=== PATIENT | male | born 1950 | race Caucasian/White ===

== ENCOUNTER 2025-01-26 07:20 | Outpatient (CLI) | payer MEDICARE, SELFPAY ==
--- NOTE | ~2025-01-26 | PE_ITS ---
EXAMINATION: PET_PETPSMAST_PT DATE: 01/26/2025 10:36 INDICATION: Prostate cancer TECHNIQUE: 4.66 mCi of Illucix Ga-68([id number]) was administered i.v. Low dose computed tomog mariza (CT) images were acquired from the base of the brain to the base of the brain to the proximal t highs for attenuation correction and anatomic localization. Positron emission tomography (PET) images were acquired in the same distribution beginning 84 minutes after injection. Images including fused PET/CT images were reconstructed in axial, coronal, and sagittal planes. Automated exposure control t [employer]Sparkn[employer] was employed. The dose-length product was 966.21mGy-cm. COMPARISON: None FINDINGS: Head/neck: Typical pattern of symmetric physiologic increased activity in the lacrimal, parotid and submandibula r glands as well as along the mucosa of the nasal and oral cavities, pharynx and hypopharynx. No path ologically enlarged cervical lymphadenopathy or suspicious foci of increased uptake in the visualized head or neck. Chest: Mild discoid atelectasis in the bilateral lower lobes. No suspicious pulmonary nodules, pneumonia, pu lmonary edema or pleural effusion. Mild cardiomegaly. Atherosclerotic coronary artery calcifications and change of prior median sternotomy and coronary artery bypass grafting. Thoracic aorta is normal i n caliber. No pathologically enlarged or PSMA avid thoracic lymphadenopathy. Abdomen/pelvis/proximal thighs: Physiologic renal accumulation and excretion of activity in the kidneys, bladder and along portions o f ureters. Mild prostatomegaly measuring 4.6 x 3.1 cm. There is an approximately 1 cm focus of intens e increase PSMA activity with maximal SUV of 37.3 at the left posterior inferior aspect of the prosta te consistent with reported history of primary prostate cancer. There is a second similar sized focus of mild uptake with maximal SUV of 4.9 at the right side of the prostate. Normal degree and slightly heterogenous pattern of increased uptake throughout the liver and spleen without radiologic correlat e or dominant PSMA avid lesion. The gallbladder, pancreas and bilateral adrenal glands are normal. Mo derate uptake scattered throughout the bowels with typical duodenal and proximal jejunal predominance and without radiologic correlate, also likely physiologic. Ventral hernia mesh repair. Postoperative change of left inguinal hernia repair with low-attenuation plaque at the entrance to the inguinal ca nal and overlying 4.7 x 2.9 x 4.1 cm subcutaneous fluid collection without significant surrounding fr om fissuring and favor evolving hematoma/seroma over abscess. No other abnormal foci of increased upt lauri or pathologically enlarged lymphadenopathy in the abdomen, pelvis or proximal thighs. Musculoskeletal: There is potentially developmental anterior and posterior fusion at C2-C3. A cemented C3-C4 anterior spinal fusion with interbody bone graft cages and anterior plate-screw fixation. There are bridging o steophytes throughout the spine with the exception of L3-L4 and L4-L5 where there is nearly bridging consistent with diffuse idiopathic skeletal hyperostosis (DISH). Likely related ankylosis across the bilateral sacroiliac joints. No suspicious lytic, blastic or abnormally PSMA avid bone lesions. IMPRESSION: 1. Small region of marked increased uptake at the left side of the prostate and additional small focu s of mild uptake at the right-sided the prostate consistent with primary prostate cancer. No evident metastatic disease. 2. Changes consistent with recent left inguinal hernia repair with overlying 4.7 x 2.9 x 4.1 cm subcu taneous fluid collection most likely an evolving hematoma/seroma with differential including abscess in the appropriate clinical setting. Reviewed, dictated and finalized at location A. IMPRESSION: 1. Small region of marked increased uptake at the left side of the prostate and additional small focus of mild uptake at the right-sided the prostate consiste nt with primary prostate cancer. No evident metastatic disease. 2. Changes consistent with recent left inguinal hernia repair with overlying 4. 7 x 2.9 x 4.1 cm subcutaneous fluid collection most likely an evolving hematoma /seroma with differential including abscess in the appropriate clinical setting .
--- OUTSIDE RECORDS SUMMARY | 2025-01-26 07:25 | XMS_ITS | Encounter Summary ---
Author Organization [facility] Address Critical access hospital[address] [place] [address] Care Team Providers Care Face Worker Name Role Phone Preeti Self MD Primary Care Provider [phone] Ender Griffith MD Unavailable [phone] Luciana Bran MD Primary Care Provider [phone] Pan Miller MD Unavailable Encounter Details Date Type Department Care Team (Late st Contact Info) Description 11/15/2020 MyChart Message Enc [facility] Wound Clinic [facility] [address] [place] [address] [place] [address] [place] [address] RE: Other Social History Tobacco Use Types Packs/Day Years Used Date Smoking Tobacco: Never Smokeless Tobacco: Never Alcohol Use Standard Drinks/Week Comments Yes 3.3 (1 standard drink = 0.6 oz p ure alcohol) wine occ AUDIT-C Answer Date Recorded Frequency of Alcohol Consumption 2-3 times a wee k 10/28/2018 Average Number of Drinks Not on file 019 Frequency of Binge Drinking Not on file 12/2018 PHQ-2 Answer Date Recorded PHQ-2 Score - If the patient scores above 3, please move on to questions 3-9 0 11/09/2020 Sex and Gender Information Value Date Recorded Sex Assigned at Male 10/20/2018 1:11 PM CDT Legal Sex Male 12:04 AM CDT Gender Identity Male 10/20/2018 1:11 PM CDT Sexual Orientation Straight 10/20/2018 1: 11 PM CDT 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 No / Unsure 11/18/2020 10:09 AM CDT documented as of this encounter Plan of Treatment Upcoming Encounters Date Type Department Care Team (Late st Contact Info) Description 01/28/2025 2:00 PM CDT Office Visit [facility] General Surgery [address], [facility] [address] [place] [phone] [place] [address] [place] [address] 10/11/2025 11:20 AM CDT Office Visit [facility] Family & Internal Medicine [address] [address] Luciana Bran MD [address] [place] [address] [phone] 01/28/2026 10:15 AM CDT Office Visit [facility] [phone] Ender Griffith MD [address] [phone] documented as of this encounter Visit Diagnoses Not on filedocumented in this encounter Care Teams Face Worker Relationship Specialty Start Date End Date Preeti Self MD PCP - General INTERNAL MEDICINE 11/23/15 03/07/22 [place] [address] [facility]. [address] [place] [address] PCP - General FAMILY PRACTICE 03/08/22 Ender Griffith MD Three [facility]. [facility] [address] [place] [address] [place] Photography Teacher CARDIOVASCULAR DISEASE 01/22/17 Pan Miller MD 1 [place] [address] Consulting Physician RADIATION ONCOLOGY 01/15/25 documented as of this encounter
--- OUTSIDE RECORDS SUMMARY | 2025-01-26 07:25 | XMS_ITS | Encounter Summary ---
Author Organization [facility] Address [facility] [place] [address] Care Team Providers Care Grain Sacker Name Role Phone Preeti Self MD Primary Care Provider [phone] Ender Griffith MD Unavailable [phone] Luciana Bran MD Primary Care Provider [phone] Pan Miller MD Unavailable Encounter Details Date Type Department Care Team (Late st Contact Info) Description 09/23/2020 MyChart Message Enc [facility] Medical [facility] Wound Clinic [facility] [address] [place] [address] [place] [address] [place] [address] Question Social History Tobacco Use Types Packs/Day Years Used Date Smoking Tobacco: Never Smokeless Tobacco: Never Alcohol Use Standard Drinks/Week Comments Not Currently 6.7 (1 standard drink = 0.6 oz p ure alcohol) wine occ AUDIT-C Answer Date Recorded Frequency of Alcohol Consumption 2-3 times a wee k 10/28/2018 Average Number of Drinks Not on file 019 Frequency of Binge Drinking Not on file 12/2018 PHQ-2 Answer Date Recorded PHQ-2 Score - If the patient scores above 3, please move on to questions 3-9 0 05/11/2020 Sex and Gender Information Value Date Recorded Sex Assigned at Male 10/20/2018 1:11 PM CDT Legal Sex Male 12:04 AM CDT Gender Identity Male 10/20/2018 1:11 PM CDT Sexual Orientation Straight 10/20/2018 1: 11 PM CDT 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 No / Unsure 09/26/2020 10:28 PM CDT documented as of this encounter Progress Notes * Kate Gandhi MA - 09/23/2020 4:[address] Álvarez, she states waiting 2 weeks after surgery. Spoke with the patient. He stated that a different physician told him a week before. Patient will get vaccine at his digression. documented in this encounter Plan of Treatment Upcoming Encounters Date Type Department Care Team (Late st Contact Info) Description 01/28/2025 2:00 PM CDT Office Visit [facility] General Surgery - [place] [address] [facility], [address] [place] [address] [place] [address] [address] 10/11/2025 11:20 AM CDT Office Visit [facility] Family & Internal Medicine - [place] [address] [place] [address] [place] [address] [facility] [address] 01/28/2026 10:15 AM CDT [facility] [address] [place] [phone] Ender Griffith MD [facility] [address] [place] [address] documented as of this encounter Visit Diagnoses Not on filedocumented in this encounter Additional Health Concerns Infection Onset Date Last Indicated Resolved Time COVID-19 Rule Out 09/30/2020 09/30/2020 10/01/2020 1:31 PM CDT COVID-19 Rule Out 10/28/2020 10/28/2020 10/30/2020 5:40 PM CDT documented as of this encounter Care Teams Grain Sacker Relationship Specialty Start Date End Date Preeti Self MD PCP - General INTERNAL MEDICINE 11/23/15 03/07/22 [place] [address] [facility]. [address] [place] [phone] PCP - General FAMILY PRACTICE 03/08/22 Ender Griffith MD Three [facility]. [address] [address] [place] Puzzle Assembler CARDIOVASCULAR DISEASE 01/22/17 Pan Miller MD 1 [place] [address] Consulting Physician RADIATION ONCOLOGY 01/15/25 documented as of this encounter
--- OUTSIDE RECORDS SUMMARY | 2025-01-26 07:25 | XMS_ITS | Encounter Summary ---
Author Organization [facility] Address [address] [place] [address] Care Team Providers Care Health And Fitness Instructor Name Role Phone Preeti Self MD Primary Care Provider [phone] Ender Griffith MD Unavailable [phone] Luciana Bran MD Primary Care Provider [phone] Pan Miller MD Unavailable Encounter Details Date Type Department Care Team (Late st Contact Info) Description 10/21/2020 Prep for Procedure [facility] Day Services [address] [place] [address] Dipak Rios MD [address] [facility] [address] [place] [place] [address] Social History Tobacco Use Types Packs/Day Years [...] 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 No / Unsure 10/03/2020 8:57 AM CDT documented as of this encounter Plan of Treatment Upcoming Encounters Date Type Department Care Team (Late st Contact Info) Description 01/28/2025 2:00 PM CDT Office Visit [facility] General Surgery - [address], [address] [place] [address] [place]ashaad [place] [address] [place] [address] [address] [place] [address] 10/11/2025 11:20 AM CDT Office Visit [facility] Family & Internal Medicine [facility] [address] [place] [address] Luciana Bran MD [address] [place] [address] [phone] 01/28/2026 10:15 AM CDT Office Visit [facility] [phone] Ender Griffith MD [address] [address] documented as of this encounter Results * PRE-SURGICAL/PRE-PROCEDURE CORONAVIRUS (COVID 19) (10/28/2020 7:41 AM CDT) CORONAVIRUS SARS COV 2 PCR (RESP) NOT DETECTED NOT DETECTED 10/30/2020 5:40 PM CDT [facility] Comment: A Not Detected (negative) test result for this test means that SARS-CoV-2 RNA was not present in the specimen above the limit of detection. A negative result does not rule out the possibility of COVID-19 and should not be used as the sole basis for treatment or patient management decisions. If COVID-19 is still suspected, based on exposure history together with other clinical findings, re-testing should be considered in consultation with public health authorities. Laboratory test results should always be considered in the context of clinical observations and epidemiological data in making a final diagnosis and patient management decisions. This patient specimen was tested using an FDA EUA pooling method. Patient specimens with low viral loads may not be detected in sample pools due to the decreased sensitivity of pooled testing. Please review the Fact Sheets and FDA authorized labeling available for health care providers and patients using the following websites: https://www.[facility].BaroFold/home/Covid-19/HCP/NAAT/fact-sheet2 https://www.[facility] [employer].BaroFold/home/Covid-19/Patients/NAAT/ fact-sheet2 This test has been authorized by the FDA under an Emergency Use Authorization (EUA) for use by authorized laboratories. Due to the current public health emergency, [facility] is receiving a high volume of samples from a wide variety of swabs and media for COVID-19 testing. In order to serve patients during this public health crisis, samples from appropriate clinical sources are being tested. Negative test results derived from specimens received in non-commercially manufactured viral collection and transport media, or in media and sample collection kits not yet authorized by FDA for COVID-19 testing should be cautiously evaluated and the patient potentially subjected to extra precautions such as additional clinical monitoring, including collection of an additional specimen. Methodology: Nucleic Acid Amplification Test (NAAT) includes RT-PCR or TMA Additional information about COVID-19 can be found at the [facility] website: www.[employer].BaroFold/Covid19. Test performed at [facility] [address] [place] [address] Director: TIANA PANCHAL DO,MPH FIRST TEST NO 10/28/2020 7:37 AM CDT [facility] EMPLOYED IN [facility] NO 10/28/2020 7:37 AM CDT [facility] SYMPTOMATIC DEFINED BY CDC NO 10/28/2020 7:37 AM CDT [facility] DATE OF SYMPTOM ONSET UNKNOWN 10/28/2020 8:07 AM CDT [facility] HOSPITALIZATION STATUS NO 10/28/2020 7:37 AM CDT [facility] PATIENT IN ICU NO 10/28/2020 7:37 AM CDT [facility] RESIDENT OF [facility] NO 10/28/2020 7:37 AM CDT [facility] NO 10/28/2020 8:07 AM CDT [facility] PATIENT'S RACE WHITE OR 10/28/2020 7:37 AM CDT [facility] ETHNICITY NONHISPANIC 10/28/2020 7:37 AM CDT [facility] SOURCE (QST) NASOPHARYNGEAL SWAB 10/28/2020 7:37 AM CDT [facility] NASOPHARYNGEAL SWAB / Unknown 10/28/2020 7:41 AM CDT us Dipak Rios MD MICROBIOLOGY - GENERAL ORDERAB LES Final Result Performing Organization Address City/State/[facility] Co de Phone Number [facility] [address] [place] [address], [place] [phone] [facility] [id number] [place] [address], documented in this encounter Visit Diagnoses Diagnosis Preop testing- Primary Preoperative examination, unspecified documented in this encounter Additional Health Concerns Infection Onset Date Last Indicated Resolved Time COVID-19 Rule Out 10/28/2020 10/28/2020 10/30/2020 5:40 PM CDT documented as of this encounter Care Teams Health And Fitness Instructor Relationship Specialty Start Date End Date Preeti Self MD PCP - General INTERNAL MEDICINE 11/23/15 03/07/22 [place] [address] [facility]. [address] [place] [address] PCP - General FAMILY PRACTICE 03/08/22 Ender Griffith MD Three [facility]. [facility] [address] [place] [address] [place] Commercial Sales Director CARDIOVASCULAR DISEASE 01/22/17 Pan Miller MD [address] [place] [address] Consulting Physician RADIATION ONCOLOGY 01/15/25 documented as of this encounter
--- OUTSIDE RECORDS SUMMARY | 2025-01-26 07:25 | XMS_ITS | Encounter Summary ---
Author Organization [facility] Address [facility] [place] [address] Care Team Providers Care Complaint Evaluation Supervisor Name Role Phone Preeti Self MD Primary Care Provider [phone] Ender Griffith MD Unavailable [phone] Luciana Bran MD Primary Care Provider [phone] Pan Miller MD Unavailable Encounter Details Date Type Department Care Team (Late st Contact Info) Description 12/18/2020 [facility]at Message Enc [facility] Family & Internal Medicine [facility] [address] [place] [address] Nikki Rockwell APNP [address] [address] RE: Other Social History Tobacco Use [...] 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 No / Unsure 12/13/2020 8:32 AM CDT documented as of this encounter Plan of Treatment Upcoming Encounters Date Type Department Care Team (Late st Contact Info) Description 01/28/2025 2:00 PM CDT Office Visit [facility] General Surgery [address], [address] [place] [phone] Rashaad Rubio [place] [address] [place] [address] [address] [place] [address] 10/11/2025 11:20 AM CDT Office Visit [facility] Family & Internal Medicine [address] [address] Luciana Bran MD [address] [place] [address] [phone] 01/28/2026 10:15 AM CDT Office Visit [facility] [phone] Ender Griffith MD [address] [address] documented as of this encounter Visit Diagnoses Not on filedocumented in this encounter Care Teams Complaint Evaluation Supervisor Relationship Specialty Start Date End Date Preeti Self MD PCP - General INTERNAL MEDICINE 11/23/15 03/07/22 [place] [address] [facility]. [address] [place] [address] PCP - General FAMILY PRACTICE 03/08/22 Ender Griffith MD Three [facility]. [facility] [address] [place] [address] [place] Cream Maker CARDIOVASCULAR DISEASE 01/22/17 Pan Miller MD 1 [place] [address] Consulting Physician RADIATION ONCOLOGY 01/15/25 documented as of this encounter
--- OUTSIDE RECORDS SUMMARY | 2025-01-26 07:25 | XMS_ITS | Encounter Summary ---
Author Organization 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 No / Unsure 09/26/2020 10:28 PM CDT documented as of this encounter Plan of Treatment Upcoming Encounters Date Type Department Care Team (Late st Contact Info) Description 01/28/2025 2:00 PM CDT Office Visit [facility] General Surgery - [place] [address] [place] [address], [address] [place] [address] Rashaad Rubio MD [address] [place] [address] [address] [place] [address] 10/11/2025 11:20 AM CDT Office Visit [facility] Family & Internal Medicine [facility] [address] [place] [address] Luciana Bran MD [address] [place] [address]. [facility] [address] [place], [place] [phone] 01/28/2026 10:15 AM CDT Office Visit [facility] [phone] Ender Griffith MD [address] [address] documented as of this encounter Results * PRE-SURGICAL/PRE-PROCEDURE CORONAVIRUS (COVID 19) (09/30/2020 8:03 AM CDT) CORONAVIRUS SARS COV 2 PCR (RESP) NOT DETECTED NOT DETECTED 10/01/2020 1:31 PM CDT [facility] Comment: A Not Detected (negative) test result for this test means that SARS- CoV-2 RNA was not present in the specimen [...] a final diagnosis and patient management decisions. Please review the Fact Sheets and FDA authorized labeling available for health care providers and patients using the following websites: https://www.trgt.us.[employer]/home/Covid-19/HCP/QuestIVD/fact- sheet.html https://www.trgt.us.[employer]/home/Covid-19/Patients/ QuestIVD/fact-sheet.html This test has been authorized by the FDA under an Emergency Use Authorization (EUA) for use by authorized laboratories. Due to the current public health emergency, [facility] is receiving a high volume of samples [...] about COVID-19 can be found at the [facility] website: www.Hobobe.[employer]/Covid19. Test performed at [facility] [address] [address] [place] [address] Director: TIANA PANCHAL DO,MPH FIRST TEST UNKNOWN 09/30/2020 7:59 AM CDT [facility] EMPLOYED IN HEALTHCARE NO 09/30/2020 7:59 AM CDT [facility] SYMPTOMATIC DEFINED BY CDC UNKNOWN 09/30/2020 7:59 AM CDT [facility] DATE OF SYMPTOM ONSET UNKNOWN 09/30/2020 8:33 AM CDT [facility] HOSPITALIZATION STATUS NO 09/30/2020 7:59 AM CDT [facility] PATIENT IN ICU NO 09/30/2020 7:59 AM CDT [facility] RESIDENT OF [facility] NO 09/30/2020 7:59 AM CDT [facility] NO 09/30/2020 8:33 AM CDT [facility] PATIENT'S RACE WHITE OR 09/30/2020 7:59 AM CDT [facility] ETHNICITY NONHISPANIC 09/30/2020 7:59 AM CDT [facility] SOURCE (QST) NASOPHARYNGEAL SWAB 09/30/2020 7:59 AM CDT [facility] NASOPHARYNGEAL SWAB / Unknown 09/30/2020 8:03 AM CDT us Dipak Rios MD MICROBIOLOGY - GENERAL ORDERAB LES Final Result Performing Organization Address City/State/[facility] Co de Phone Number [facility] [address] [place] [address], [facility] [address] [address], documented in this encounter Visit Diagnoses Diagnosis Preop testing- Primary Preoperative examination, unspecified documented in this encounter Additional Health Concerns Infection Onset Date Last Indicated Resolved Time COVID-19 Rule Out 09/30/2020 09/30/2020 10/01/2020 1:31 PM CDT COVID-19 Rule Out 10/28/2020 10/28/2020 10/30/2020 5:40 PM CDT documented as of this encounter Care Teams Lab Assistant Relationship Specialty Start Date End Date Preeti Self MD PCP - General INTERNAL MEDICINE 11/23/15 03/07/22 [place] [address] [facility]. [address] [place] [address] PCP - General FAMILY PRACTICE 03/08/22 Ender Griffith MD Three [facility]. [facility] [address] [place] [address] [place] Paper Maker CARDIOVASCULAR DISEASE 01/22/17 Pan Miller MD 1 [place] [address] Consulting Physician RADIATION ONCOLOGY 01/15/25 documented as of this encounter
--- OUTSIDE RECORDS SUMMARY | 2025-01-26 07:25 | XMS_ITS | Encounter Summary ---
Author Organization [facility] Address [address] [place] [address] Care Team Providers Care Control Chemist Name Role Phone Edd De Dios MD Unavailable Unavailable Preeti Self MD Primary Care Provider [phone] Ender Griffith MD Unavailable [phone] Luciana Bran MD Primary Care Provider [phone] Pan Miller MD Unavailable Encounter Details Date Type Department Care Team (Late st Contact Info) Description 04/11/2016 Abstract [facility] AT [address] [address] Sohail Gramajo MA Social History Tobacco Use Types Packs/Day Years Used Date Smoking Tobacco: Never Smokeless Tobacco: Never Alcohol Use Standard Drinks/Week Comments Yes 0 (1 standard drink = 0.6 oz pur e alcohol) wine nightly Sex and Gender Information Value Date Recorded Sex Assigned at Male 10/20/2018 1:11 PM CDT Legal Sex Male 12:04 AM CDT Gender Identity Male 10/20/2018 1:11 PM CDT Sexual Orientation Straight 10/20/2018 1: 11 PM CDT documented as of this encounter Plan of Treatment Upcoming Encounters Date Type Department Care Team (Late st Contact Info) Description 01/28/2025 2:00 PM CDT Office Visit [facility] Medical [facility] General Surgery [address], [address] [place] [address] [place] [address] [facility] [address] [place] [address] 10/11/2025 11:20 AM CDT Office Visit [facility] Medical Group Family & Internal Medicine - [place] [address] [place] [address] [place] [address] [facility]. [address] [place], [place] [phone] 01/28/2026 10:15 AM CDT Office Visit [facility] [address] [place] [address] Ender Griffith MD Three [address] [phone] documented as of this encounter Procedures Procedure Name Priority Date/Time Associated Diagnosis Comments FOLATE (OUTSIDE LAB) Routine 12/08/2015 VITAMIN B-12 Routine 12/08/2015 THYROID STIM HORMONE TSH Routine 12/08/2015 MAGNESIUM Routine 12/08/2015 URIC ACID BLOOD Routine 12/08/2015 documented in this encounter Results * URIC ACID BLOOD (12/08/2015) URIC ACID 7.4 12/08/2015 us Doc [facility]AT[facility] Final Result * FOLATE (OUTSIDE LAB) (12/08/2015) FOLATE 14.17 12/08/2015 us [facility] Abstract LAB-OUTSIDE/ABSTRACTED Final Result * VITAMIN B-12 (12/08/2015) VITAMIN B12 S/P/B 193 12/08/2015 us Doc [facility] LABORATORY Final Result * THYROID STIM HORMONE, TSH (12/08/2015) TSH 1.13 12/08/2015 us Doc [facility] LABORATORY Final Result * MAGNESIUM (12/08/2015) MAGNESIUM 2.5 12/08/2015 us Doc [facility] LABORAT[facility] Final Result documented in this encounter Visit Diagnoses Not on filedocumented in this encounter Additional Health Concerns Infection Onset Date Last Indicated Resolved Time COVID-19 Rule Out 09/30/2020 09/30/2020 10/01/2020 1:31 PM CDT COVID-19 Rule Out 10/28/2020 10/28/2020 10/30/2020 5:40 PM CDT documented as of this encounter Care Teams Control Chemist Relationship Specialty Start Date End Date Preeti Self MD PCP - General INTERNAL MEDICINE 11/23/15 03/07/22 [place] [address] [facility] [address] [place] [address] PCP - General FAMILY PRACTICE 03/08/22 Edd De Dios MD [place] [employer] CARDIOVASCULAR DISEASE 11/23/15 01/21/17 Ender Griffith MD [place] [address] [place] [address] [place] [employer] CARDIOVASCULAR DISEASE 01/22/17 Pan Miller MD 1 [place] [address] Consulting Physician RADIATION ONCOLOGY 01/15/25 documented as of this encounter
--- OUTSIDE RECORDS SUMMARY | 2025-01-26 07:25 | XMS_ITS | Encounter Summary ---
Author Organization [facility] Address [facility] [place] [address] Care Team Providers Care Airport Shuttle Driver Name Role Phone Ender Griffith MD Unavailable [phone] Luciana Bran MD Primary Care Provider [phone] Pan Miller MD Unavailable Encounter Details Date Type Department Care Team (Late st Contact Info) Description 10/13/2024 MyChart Message Enc [facility] Medical Group Family & Internal Medicine [facility] [address] [place] [address] Luciana Bran MD [address] [place] [address] [address] Blood work Social History Tobacco Use Types Packs/Day Years Used Date Smoking Tobacco: Never Passive Smoke Exposure: Never Smokeless Tobacco: Never Alcohol Use Standard Drinks/Week Comments Yes 3.3 (1 standard drink = 0.6 oz p ure alcohol) wine occ AUDIT-C Answer Date Recorded Frequency of Alcohol Consumption 2-3 times a wee k 10/28/2018 Average Number of Drinks Not on file 019 Frequency of Binge Drinking Not on file 12/2018 PHQ-2 Answer Date Recorded Patient Health Questionnaire-2 Score 0 10/09/2024 Sex and Gender Information Value Date Recorded Sex Assigned at Male 10/20/2018 1:11 PM CDT Legal Sex Male 12:04 AM CDT Gender Identity Male 10/20/2018 1:11 PM CDT Sexual Orientation Straight 10/20/2018 1: 11 PM CDT 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 [place] [address] 01/28/2026 10:15 AM CDT Office Visit [facility] [address] [place] [phone] Ender Griffith MD [address] [address] documented as of this encounter Visit Diagnoses Not on filedocumented in this encounter Additional Health Concerns Assessment Noted Time PHQ-9 Depression Total Score: 0 04/05/20 22 7:30 AM CDT documented as of this encounter Care Teams Airport Shuttle Driver Relationship Specialty [place] [address] [facility] [address] [place] [address] PCP - General FAMILY PRACTICE 03/08/22 Ender Griffith MD [facility] [address] [place] [address] [place] Student Ambassador CARDIOVASCULAR DISEASE 01/22/17 Pan Miller MD 1 [place] [address] Consulting Physician RADIATION ONCOLOGY 01/15/25 documented as of this encounter
--- OUTSIDE RECORDS SUMMARY | 2025-01-26 07:25 | XMS_ITS | Encounter Summary ---
Author Organization [facility] Address [facility] [place] [address] Care Team Providers Care Pediatric Cardiologist Name Role Phone Ender Griffith MD Unavailable [phone] Luciana Bran MD Primary Care Provider [phone] Pan Miller MD Unavailable Encounter Details Date Type Department Care Team (Latest Contact Info) Description 01/06/2025 IZEA Message [facility] [address] [place] [phone] Rin Silva PA [address] [facility], [address] [place] [address] EKG test results Social History Tobacco Use Types Packs/Day Years [...] 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 Not on file Not on file documented as of this encounter Progress Notes * SHA Lopez - 01/06/2025 10:34 AM CDT EKG looks good documented in this encounter Plan of Treatment Upcoming Encounters Date Type Department Care Team (Late st Contact Info) Description 01/28/2025 2:00 PM CDT Office Visit [facility] General Surgery - [place] [address] [place] [address], [address] [place] [address] [place]ashaad Rubio [place] [address] [place] [address] 10/11/2025 11:20 AM CDT Office Visit [facility] Family & Internal Medicine - [place] [address] [place] [address] [place] [address] [facility] [employer]. [address] [address] 01/28/2026 10:15 AM CDT Office Visit [facility] [address] [place] [phone] Ender Griffith MD [address] [address] documented as of this encounter Visit Diagnoses Not on filedocumented in this encounter Additional Health Concerns Assessment Noted Time PHQ-9 Depression Total Score: 0 04/05/20 22 7:30 AM CDT documented as of this encounter Care Teams Pediatric Cardiologist Relationship Specialty [place] [address] [facility] [address] [place] [address] PCP - General FAMILY PRACTICE 03/08/22 Ender Griffith MD Three [facility]. [address] [place] [address] [place] Dry Dock Manager CARDIOVASCULAR DISEASE 01/22/17 Pan Miller MD 1 [place] [address] Consulting Physician RADIATION ONCOLOGY 01/15/25 documented as of this encounter
--- OUTSIDE RECORDS SUMMARY | 2025-01-26 07:25 | XMS_ITS | Encounter Summary ---
Author Organization [facility] Address [facility] [place] [address] Care Team Providers Care Sheet Rock Layer Name Role Phone Preeti Self MD Primary Care Provider [phone] Ender Griffith MD Unavailable [phone] Luciana Bran MD Primary Care Provider [phone] Pan Miller MD Unavailable Encounter Details Date Type Department Care Team (Late st Contact Info) Description 07/02/2020 MyChart Message Enc [facility] Medical Group Family & Internal Medicine [facility] [address] [place] [address] Preeti Self MD [address] [place] [address] RE: Referral Request Social History Tobacco Use Types Packs/Day Years Used Date Smoking Tobacco: Never Smokeless Tobacco: Never Alcohol Use Standard Drinks/Week Comments Yes 0 (1 standard drink = 0.6 oz pur e alcohol) wine occ AUDIT-C Answer Date Recorded [...] 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 Not on file documented as of this encounter Plan of Treatment Upcoming Encounters Date Type Department Care Team (Late st Contact Info) Description 01/28/2025 2:00 PM CDT Office Visit [facility] General Surgery - [address], [address] [place] [address] Rashaad Rubio [place] [address] [place] [address] 10/11/2025 11:20 AM CDT Office Visit [facility] Family & Internal Medicine [address] [address] Luciana Bran MD [address] [place] [phone] 01/28/2026 10:15 AM CDT Office Visit [facility] [phone] Ender Griffith MD [address] [address] documented as of this encounter Visit Diagnoses Not on filedocumented in this encounter Additional Health Concerns Infection Onset Date Last Indicated Resolved Time COVID-19 Rule Out 09/30/2020 09/30/2020 10/01/2020 1:31 PM CDT COVID-19 Rule Out 10/28/2020 10/28/2020 10/30/2020 5:40 PM CDT documented as of this encounter Care Teams Sheet Rock Layer Relationship Specialty Start Date End Date Preeti Self MD PCP - General INTERNAL MEDICINE 11/23/15 03/07/22 [place] [address] [address] [place] [address] PCP - General FAMILY PRACTICE 03/08/22 Ender Griffith MD Three [facility]. [facility] [address] [place] [address] [place] Organic Chemistry Professor CARDIOVASCULAR DISEASE 01/22/17 Pan Miller MD 1 [place] [address] Consulting Physician RADIATION ONCOLOGY 01/15/25 documented as of this encounter
--- OUTSIDE RECORDS SUMMARY | 2025-01-26 07:26 | XMS_ITS | Encounter Summary ---
Author Organization [facility] Address [facility]6 [place] [address] Care Team Providers Care Die Out Worker Name Role Phone Preeti Self MD Primary Care Provider [phone] Ender Griffith MD Unavailable [phone] Luciana Bran MD Primary Care Provider [phone] Pan Miller MD Unavailable Encounter Details Date Type Department Care Team (Late st Contact Info) Description 12/08/2018 ENVIRONMENTAL GEOLOGIST ONLY [facility] Medical Group Priority Care - Donnie Padgett [address] [place] [address] Scanned, Documents Social History Tobacco Use Types Packs/Day Years [...] 12/2018 PHQ-2 Answer Date Recorded PHQ-2 Score 0 10/20/2018 Sex and Gender Information Value Date Recorded Sex Assigned at Male 10/20/2018 1:11 PM CDT Legal Sex Male 12:04 AM CDT Gender Identity Male 10/20/2018 1:11 PM CDT Sexual Orientation Straight 10/20/2018 1: 11 PM CDT 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 THIS PATIENT CALLED AND CANCELED ON 10/29/2018 STATING HE WILL HOLD ON PT AND WILL RECEIVE STEROID INJECTIONS IN HIS LUMBAR SPINE. REASON FOR DISCONTINUATION OF SERVICE: THE PATIENT WILL HOLD FROM PHYSICAL THERAPY INTERVENTION UNTIL CONSULTATION WITH PAIN MANAGEMENT AND INJECTIONS PER TELEPHONE CALL ON 10/29/2018 WITH THIS PATIENT. CURRENT PHYSICAL/FUNCTIONAL STATUS: THIS PATIENT REPORTED A DECREASE IN SYMPTOMS AFTER HIS INITIAL PHYSICAL THERAPY SESSION, BUT EXPERIENCED AN EXACERBATION ON 10/26/2018 WITHOUT KNOWN MECHANISM OF INJURY. SYMPTOM IRRITABILITY WAS VERY HIGH DURING HIS VISIT ON 10/27/2018. THE PATIENT CONSULTED WITH PAIN MANAGEMENT ON 10/28/2018 AND WAS SCHEDULED TO RECEIVE STEROID INJECTIONS. DEGREE OF GOAL ACHIEVEMENT: THIS PATIENT HAS NOT MET GOALS DUE TO HIS INABILITY TO CONTINUE WITH PHYSICAL THERAPY INTERVENTION. DISCHARGE PLAN: WRITTEN AND VERBAL COMMUNICATION RELATED TO THIS PATIENT CONTINUING CARE WAS PROVIDED FOR A HOME EXERCISE PROGRAM WELL RECOMMENDATIONS FOR FOLLOW UP CARE AFTER STEROID INJECTIONS APPROVED BY DR. BELTRAN. ELECTRONICALLY SIGNED BY JEAN PAUL CONNORS P.T. 12/17/2018 01:01 P KELSEA/CRISTINA JOB NO: [id number] DOC NO: [id number] 12/08/2018 12/09/2018 12:24 P CC: documented in this encounter Plan of Treatment Upcoming Encounters Date Type Department Care Team (Late st Contact Info) Description 01/28/2025 2:00 PM CDT Office Visit [facility] Medical Group General Surgery [address], [address] [place] [address] [place] [address] [facility] [address] [place] [phone] 10/11/2025 11:20 AM CDT Office Visit [facility] Medical Group Family & Internal Medicine - [place] [address] [place] [phone] [place] [address] [facility]. [address] [place], [place] [phone] 01/28/2026 10:15 AM CDT [facility] [address] [place] [address] Ender Griffith MD [address] [address] documented as of this encounter Visit Diagnoses Not on filedocumented in this encounter Additional Health Concerns Infection Onset Date Last Indicated Resolved Time COVID-19 Rule Out 09/30/2020 09/30/2020 10/01/2020 1:31 PM CDT COVID-19 Rule Out 10/28/2020 10/28/2020 10/30/2020 5:40 PM CDT documented as of this encounter Care Teams Die Out Worker Relationship Specialty Start Date End Date Preeti Self MD PCP - General INTERNAL MEDICINE 11/23/15 03/07/22 [place] [address] [facility]. [address] [place], [place] [phone] PCP - General FAMILY PRACTICE 03/08/22 Ender Griffith MD [facility]. [address] [place] [address] [place] [employer] J2E[employer] Application Developer CARDIOVASCULAR DISEASE 01/22/17 Pan Miller MD 1 [place] [address] Consulting Physician RADIATION ONCOLOGY 01/15/25 documented as of this encounter
--- OUTSIDE RECORDS SUMMARY | 2025-01-26 07:26 | XMS_ITS | Encounter Summary ---
Author Organization [facility] Address [facility] [place] [address] Care Team Providers Care Manager Life Insurance Name Role Phone Preeti Self MD Primary Care Provider [phone] Ender Griffith MD Unavailable [phone] Luciana Bran MD Primary Care Provider [phone] Pan Miller MD Unavailable Encounter Details Date Type Department Care Team (Late st Contact Info) Description 11/28/2021 MyChart Message Enc [facility] Medical Group Family & Internal Medicine [facility] [address] [place] [address] Preeti [place] [address] [place] [address] [address] 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 No / Unsure 11/13/2021 8:44 AM CDT documented as of this encounter Plan of Treatment Upcoming Encounters Date Type Department Care Team (Late st Contact Info) Description 01/28/2025 2:00 PM CDT Office Visit [facility] Medical [facility] General Surgery [address], [address] [place] [phone] Rashaad Rubio MD [address] [place] [address] 10/11/2025 11:20 AM CDT Office Visit [facility] Family & Internal Medicine [address] [address] Luciana Bran MD [address] [place] [address] [phone] 01/28/2026 10:15 AM CDT Office Visit [facility] [phone] Ender Griffith MD [address] [address] documented as of this encounter Visit Diagnoses Not on filedocumented in this encounter Additional Health Concerns Assessment Noted Time PHQ-9 Depression Total Score: 4 08/23/19 22 9:55 AM SLIP COVER OPERATOR documented as of this encounter Care Teams Manager Life Insurance Relationship Specialty Start Date End Date Preeti Self MD PCP - General INTERNAL MEDICINE 11/23/15 03/07/22 [place] [address] [facility] [place] [phone] PCP - General FAMILY PRACTICE 03/08/22 Ender Griffith MD Three [facility]. [facility] [address] [place] [address] [place] Plant Controller CARDIOVASCULAR DISEASE 01/22/17 Pan Miller MD 1 [place], [place] [id number] Consulting Physician RADIATION ONCOLOGY 01/15/25 documented as of this encounter
--- OUTSIDE RECORDS SUMMARY | 2025-01-26 07:26 | XMS_ITS | Encounter Summary ---
Author Organization [facility] Address [facility] [place] [address] Care Team Providers Care Microbiology Supervisor Name Role Phone Preeti Self MD Primary Care Provider [phone] Ender Griffith MD Unavailable [phone] Luciana Bran MD Primary Care Provider [phone] Pan Miller MD Unavailable Encounter Details Date Type Department Care Team (Late st Contact Info) Description 08/05/2019 MyChart Message Enc [facility] Medical Group [facility] [address] [place] [address] Josse Pham MD [address] [place] [address] [place] [address] Medication Questions Social History Tobacco Use Types Packs/Day Years [...] 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 [address] [address] 01/28/2026 10:15 AM CDT Office Visit [facility] [address] Ender Griffith MD [address] [phone] documented as of this encounter Visit Diagnoses Not on filedocumented in this encounter Additional Health Concerns Infection Onset Date Last Indicated Resolved Time COVID-19 Rule Out 09/30/2020 09/30/2020 10/01/2020 1:31 PM CDT COVID-19 Rule Out 10/28/2020 10/28/2020 10/30/2020 5:40 PM CDT documented as of this encounter Care Teams Microbiology Supervisor Relationship Specialty Start Date End Date Preeti Self MD PCP - General INTERNAL MEDICINE 11/23/15 03/07/22 [place] [address] [facility]. [address] [place] [address] PCP - General FAMILY PRACTICE 03/08/22 Ender Griffith MD Three [facility]. [facility] [address] [place] [address] [place] Fabricator Special Items CARDIOVASCULAR DISEASE 01/22/17 Pan Miller MD 1 [place] [address] Consulting Physician RADIATION ONCOLOGY 01/15/25 documented as of this encounter
--- OUTSIDE RECORDS SUMMARY | 2025-01-26 07:26 | XMS_ITS | Clinical Summary ---
Author Organization [facility] Address [address] [place] [address] Care Team Providers Care Building Construction Supervisor Name Role Phone Preeti Self MD Primary Care Provider [phone] Allergies No known active allergies Medications rosuvastatin (CRESTOR) 20 mg tablet Take 20 mg by mouth daily at bedtime. Active amLODIPine-margarito zepril (LOTREL) 5-40 mg capsule Take 1 Capsule by mouth daily. Active tamsulosin (FLOMAX) 0.4 mg capsule Take 0.4 mg by mouth daily. Active Cholecalciferol , Vitamin D3, 50 mcg (2,000 unit) Capsule Take 1 Tablet by mouth daily. Active coenzyme Q10 100 mg Capsule Take 100 mg by mouth daily. Active ASCORBIC ACID, VITAMIN C, ORAL Take 1 Tablet by mouth daily. Active finasteride (PROSCAR) 5 mg tablet Take 1 Tablet by mouth daily. 05/02/2020 Active metoprolol succinate (TOPROL XL) 25 mg Extended Release 24 hour tablet Take 1 Tablet by mouth daily. 06/07/2020 Active RESVERATROL ORAL Take by mouth daily. Active acetaminophen (TYLENOL) 325 mg tablet Take 325 mg by mouth every 4 hours as needed. Active HYDROcodone-argentina taminophen (NORCO) 5-325 mg tabletIndicatio ns:Lumbar stenosis with neurogenic claudication,Ac matt post-operative pain Take 1-2 Tablets by mouth every 4 hours as needed for Pain, Severe. Max Daily Amount: 12 Tablets 42 Tablet 02/09/2021 Active vitamin B complex Capsule Take 1 Tablet by mouth daily. Active Active Problems Problem Noted Date Diagnosed Date Lumbar stenosis 02/09/2021 Immunizations Immunization Administration Dates Next Due (KELL) COVID-19 VACCINE - EMERGENCY USE AUTHORIZATION, AD26,COV2S(PF) 0.5 ML IM SUSP 09/24/2020 Family History Medical History Relation Name Comments Other Father Tobacco Use; Sp inal Stenosis Respiratory Disease Father Other Mother natural causes Diabetes Other 1 Aunt Diabetes Other 2 Uncle Other Sister Tobacco Use Relation Name Status Comments Father Mother Other 1 Aunt Other 2 Uncle Sister Social History Tobacco Use Types Packs/Day Years Used Date Smoking Tobacco: Never Smokeless Tobacco: Never Tobacco Cessation:Counseling Given: Not Answered Alcohol Use Standard Drinks/Week Comments Yes 0 (1 standard drink = 0.6 oz pur e alcohol) socially Sex and Gender Information Value Date Recorded Sex Assigned at Not on file Legal Sex Male 4:35 AM SLATE WORKER Gender Identity Not on file Sexual Orientation Not on file Last Filed Vital Signs Vital Sign Reading Time Taken Comments Blood Pressure 141/80 07/24/2022 2:02 PM SLATE WORKER Pulse 87 07/24/2022 2:02 PM SLATE WORKER Temperature 24.4 C (76 F) 06/28/2021 10:51 AM SLATE WORKER Respiratory Rate 16 02/09/2021 3:00 PM CDT Oxygen Saturation 98% 02/09/2021 3:00 PM CDT Inhaled Oxygen Concentration - - Weight 84.4 kg (186 lb) 07/24/2022 2:02 PM SLATE WORKER Height 165.1 cm (5' 5) 07/24/2022 2:02 PM SLATE WORKER Body Mass Index 30.95 07/24/2022 2:02 PM SLATE WORKER Plan of Treatment Health Maintenance Due Date Last Done Comments DTAP/TDAP/TD VACCINES (1 - Tdap) 12/01/1971 COLORECTAL SCREENING 1997 Colorectal Cancer Screening 1997 FIT-DNA Q 3 years 1997 FIT/FOBT Q 1 year 1997 Flex Sig/CT Colonography Q 5 years 1997 PNEUMOCOCCAL VACCINE 50+ YEARS (1 of 1 - PCV) 12/01/19 03 ZOSTER VACCINE (1 of 2) 2002 COVID-19 Vaccine (2 - 2023- season) 02/23/202408/2020 INFLUENZA VACCINE (#1) 2025 RSV VACCINE (60+ or ) (1 - 1-dose 75+ series) 12/01/2027 Medical Devices Implanted Type Area Solar Energy Technician Device Identifier Shelf Expiration Date Model / Serial / Lot Hemostatic Surgiflo 8ml W/Thrombin 2994 - [id number] Implanted:Qty: 1 on 02/09/2021 by Yosef Ash MD at [facility] Hemostatic N/A: Spine Lumbar [employer] 05/23/2022 [id number] / / [id number] Cervical Hardware Insurance [facility] DUAL COMPLETE HMO [facility] [id number] Care Teams Building Construction Supervisor Relationship Specialty [place] [address] [address] PCP - General Internal Medicine 03/30/17
--- OUTSIDE RECORDS SUMMARY | 2025-01-26 07:26 | XMS_ITS | Encounter Summary ---
Author Organization [facility] Address [facility]ly [facility] [place] [address] Care Team Providers Care Operations Leader Name Role Phone Ender Grfifith MD Unavailable [phone] Luciana Bran MD Primary Care Provider [phone] Pan Miller MD Unavailable Encounter Details Date Type Department Care Team (Late st Contact Info) Description 03/28/2022 MyChart Message Enc [facility] Medical Group Multispecialty Care - [facility] [address] [facility] [place] [address] Josse Pham MD [address] [place] [address] ELODIA ALEJO [phone] PSA Social History Tobacco Use Types Packs/Day Years [...] 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 No / Unsure 03/28/2022 10:28 AM CDT documented as of this encounter Progress Notes * Jewell Calixto RN - 03/28/2022 10:22 AM CDT Patient reported PSA results. * Jewell Calixto RN - 03/28/2022 10:21 AM CDTFrom: Faustino Gentile To: Dr. Josse Pham Sent: 03/28/2022 9:59 AM CDT Subject: PAS test results [facility] and had my PSA test done. The results came back at 1.73. documented in this encounter Plan of Treatment Upcoming Encounters Date Type Department Care Team (Late st Contact Info) Description 01/28/2025 2:00 PM CDT Office Visit [facility] General Surgery - [address], [address] [place] [address] Rashaad Rubio MD [address] [place] [address] 10/11/2025 11:20 AM CDT Office Visit [facility] Family & Internal Medicine [address] [address] Luciana Bran MD [address] [place] [address]. [address] [place], [place] [phone] 01/28/2026 10:15 AM CDT Office Visit [facility] [address] [place] [address] Ender Griffith MD Three [facility]. [facility] [address] [place] [address] documented as of this encounter Visit Diagnoses Not on filedocumented in this encounter Additional Health Concerns Assessment Noted Time PHQ-9 Depression Total Score: 4 08/23/19 22 9:55 AM MAGAZINE PUBLISHER documented as of this encounter Care Teams Operations Leader Relationship Specialty [place] [address] [place] [address] PCP - General FAMILY PRACTICE 03/08/22 Ender Griffith MD [facility]. [address] [address] [place] Artisan Plasterer CARDIOVASCULAR DISEASE 01/22/17 Pan Miller MD 1 [place] [address] Consulting Physician RADIATION ONCOLOGY 01/15/25 documented as of this encounter
--- OUTSIDE RECORDS SUMMARY | 2025-01-26 07:26 | XMS_ITS | Encounter Summary ---
Author Organization [facility] - [facility] Address [facility] [place] [address] Care Team Providers Care Facilities Management Executive Name Role Phone Ender Griffith MD Unavailable [phone] Luciana Bran MD Primary Care Provider [phone] Pan Miller MD Unavailable Encounter Details Date Type Department Care Team (Late st Contact Info) Description 06/25/2024 PreciouStatus Message Enc [facility] Medical Group Family & Internal Medicine [address] [address] [facility] Provider specialist Social History Tobacco Use Types Packs/Day Years [...] Date Recorded Patient Health Questionnaire-2 Score 0 08/16/2023 Sex and Gender Information Value Date Recorded Sex Assigned at Male 10/20/2018 1:11 PM CDT Legal Sex Male 12:04 AM CDT Gender Identity Male 10/20/2018 1:11 PM CDT Sexual Orientation Straight 10/20/2018 1: 11 PM CDT 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 [address] [address] 01/28/2026 10:15 AM CDT [facility] [address] [place] [phone] Ender Griffith MD [facility]. [facility] [address] [place] [address] documented as of this encounter Visit Diagnoses Not on filedocumented in this encounter Additional Health Concerns Assessment Noted Time PHQ-9 Depression Total Score: 0 04/05/20 22 7:30 AM CDT documented as of this encounter Care Teams Facilities Management Executive Relationship Specialty [place] [address] [facility] [place] [address] PCP - General FAMILY PRACTICE 03/08/22 Ender Griffith MD [facility]. [facility] [address] [place], [place] [address] [place] Switching Clerk CARDIOVASCULAR DISEASE 01/22/17 Pan Miller MD [address] [place] [address] Consulting Physician RADIATION ONCOLOGY 01/15/25 documented as of this encounter
--- OUTSIDE RECORDS SUMMARY | 2025-01-26 07:26 | XMS_ITS | Referral Summary ---
Author Organization [facility] Office Building [address] [place] [address] Care Team Providers Care Supervisor Curing Room Name Role Phone Luciana Bran MD Primary Care Provider [phone] Allergies No known active allergies Medications acetaminophen (TYLENOL) 500 mg tablet Take 2 tablets (1,000 mg total) by mouth every 6 (six) hours as needed for pain Active amLODIPine-margarito zepriL (LOTREL) 5-40 mg per capsule Take 1 capsule by mouth daily 2 Active cholecalciferol (VITAMIN D-3) 2000 unit capsule Take 1 capsule (2,000 Units total) by mouth daily Active metoprolol XL (TOPROL-XL) 25 mg extended release tablet Take 1 tablet (25 mg total) by mouth daily 0 Active rosuvastatin (CRESTOR) 20 mg tablet Take 1 tablet (20 mg total) by mouth daily 2 Active tamsulosin (FLOMAX) 0.4 mg extended release capsule Take 1 capsule (0.4 mg total) by mouth daily 2 Active coenzyme Q10 100 mg capsule Take 1 capsule (100 mg total) by mouth daily Active vitamin B complex capsule Take 1 tablet by mouth daily Active finasteride (PROSCAR) 5 mg tablet Take 1 tablet (5 mg total) by mouth daily Active ASCORBIC ACID, VITAMIN C, ORAL Take 1 tablet by mouth daily Active meloxicam (MOBIC) 7.5 mg tabletIndicatio ns:Osteoarthrit is Take 1 tablet (7.5 mg total) by mouth 2 (two) times a day as needed for pain 60 tablet 1 3 Active fluticasone propionate (FLONASE) 50 mcg/actuation nasal spray Administer 2 sprays into affected nostril(s) daily [address] (PROTONIX) 40 mg EC tabletIndicatio ns:Laryngophary ngeal reflux (LPR) Take 1 tablet (40 mg total) by mouth daily 30 tablet 11 4 Active famotidine (PEPCID) 40 mg tabletIndicatio ns:Laryngophary ngeal reflux (LPR) Take 1 tablet (40 mg total) by mouth nightly 30 tablet 2 4 Active Active Problems Problem Noted Date Diagnosed Date Hypertrophy of both inferior nasal turbinates Laryngopharyngeal reflux (LPR) 10/29/2023 Chronic pansinusitis 10/29/2023 Chronic cough 09/24/2023 Deviated nasal septum 09/24/2023 Chronic maxillary sinusitis 09/24/2023 Greater trochanteric bursitis of left hip 2022 Lumbar facet joint syndrome 10/19/2022 Thoracic facet joint syndrome 10/19/2022 Bilateral primary osteoarthritis of hip 10/20/19 Sacroiliitis 08/13/2022 Postlaminectomy syndrome, lumbar 08/13/2022 Left hip pain 08/13/2022 Social History Tobacco Use Types Packs/Day Years Used Date Smoking Tobacco: Never Passive Smoke Exposure: Never Smokeless Tobacco: Never Tobacco Cessation:Counseling Given: Not Answered Personal Safety Answer Date Recorded Getting School Help Needed Not on file 06/04 Sex and Gender Information Value Date Recorded Sex Assigned at Not on file 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 Gender Identity Male 09/11/2022 8:20 AM CDT Sexual Orientation Not on file Last Filed Vital Signs Vital Sign Reading Time Taken Comments Blood Pressure 111/73 10/08/2023 10:21 AM CDT Pulse 74 10/08/2023 10:21 AM CDT Temperature 36.4 C (97.6 F) 12/10/2023 9:08 AM CDT Respiratory Rate 16 09/04/2023 8:20 AM CDT Oxygen Saturation 99% 10/08/2023 10:21 AM CDT Inhaled Oxygen Concentration - - Weight 75.3 kg (166 lb) 12/10/2023 9:08 AM CDT Height 165.1 cm (5' 5) 12/10/2023 9:08 AM CDT Body Mass Index 27.62 12/10/2023 9:08 AM CDT Plan of Treatment Not on file Insurance MEDICARE ADVANTAGE [facility] MED[facility] Address: [address] [place] [address] MEDICARE ADVANTAGE [facility] MEDICARE Address: [address] [place], [place] [id number] MEDICARE ADVANTAGE Care Teams Supervisor Curing Room Relationship Specialty [place] [address] [facility] [address] [place] [address] PCP - General Family Medicine 02/04/23
--- OUTSIDE RECORDS SUMMARY | 2025-01-26 07:26 | XMS_ITS | Clinical Summary ---
Author Organization [facility] Office Building [address] [place] [address] Care Team Providers Care Retail Customer Service Specialist Name Role Phone Luciana Bran MD Primary Care Provider [phone] Allergies No known active allergies Medications acetaminophen [...] syndrome, lumbar 08/13/2022 Left hip pain 08/13/2022 Surgical History Surgery Date Site/Laterality Comments CARDIAC SURGERY HERNIA REPAIR CERVICAL DISC SURGERY C3-C4 LUMBAR DISC SURGERY L4-L5 Medical History Medical History Date Comments Cataracts, bilateral Heart disease Hypertension Nosebleed Family History Medical History Relation Name Comments No Known Problems Father No Known Problems Mother Relation Name Status Comments Father Mother Social History Tobacco Use Types Packs/Day Years Used Date Smoking Tobacco: Never Passive Smoke Exposure: Never Smokeless Tobacco: Never Tobacco Cessation:Counseling Given: Not Answered Personal Safety Answer Date Recorded Getting School Help Needed Not on file 06/04 Sex and Gender Information Value Date Recorded Sex Assigned at Not on file 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 Gender Identity Male 09/11/2022 8:20 AM CDT Sexual Orientation Not on file Obstetrics History Last Filed Vital Signs Vital Sign Reading [...] 12/10/2023 9:08 AM CDT Plan of Treatment Health Maintenance Due Date Last Done Comments Colon Cancer Screening-Colonoscopy 1950 Depression Screening 1950 Hepatitis C Screening 1950 DTaP/Tdap/Td Vaccine (1 - Tdap) 12/01/1963 Hepatitis B Screening 1970 Pneumococcal vaccine 65+ (1 of 1 - PCV) 2002 Zoster Vaccine (1 of 2) 2002 Abdominal Aortic Aneurysm (AAA) Screen 2017 Well Visit 65+ 2017 Covid-19 Vaccine ( - season) 02/23/202402/2021, 09/24/2020 Fall Risk Assessment 09/03/2024 09/04/2023 Influenza Vaccine (#1) 2025 Insurance [facility] MEDICARE ADVANTAGE [facility]IC[facility] Address: [facility] [address] [place] [address] [facility] MEDICARE ADVANTAGE [facility]IC[facility] Address: [address] [address] [facility] MEDICARE ADVANTAGE [facility] MEDIC[facility] Address: [address] [address] Care Teams Retail Customer Service Specialist Relationship Specialty [place] [address] [address] [place] [address] PCP - General Family Medicine 02/04/23
--- OUTSIDE RECORDS SUMMARY | 2025-01-26 07:26 | XMS_ITS | Encounter Summary ---
Author Organization [facility] Address [facility]ly [facility] [place] [address] Care Team Providers Care Accounting Clerk Name Role Phone Ender Griffiht MD Unavailable [phone] Luciana Bran MD Primary Care Provider [phone] Pan Miller MD Unavailable Encounter Details Date Type Department Care Team (Late st Contact Info) Description 05/14/2022 [email or web address] Message Enc [facility] Medical Group Family & Internal Medicine [address] [address] [facility] Provider blood pressure Social History Tobacco Use Types Packs/Day Years [...] please move on to questions 3-9 0 05/11/2022 Sex and Gender Information Value Date Recorded Sex Assigned at Male 10/20/2018 1:11 PM CDT Legal Sex Male 12:04 AM CDT Gender Identity Male 10/20/2018 1:11 PM CDT Sexual Orientation Straight 10/20/2018 1: 11 PM CDT 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 No / Unsure 05/15/2022 8:42 AM MEMBERSHIP ADMINISTRATOR documented as of this encounter Plan of Treatment Upcoming Encounters Date Type Department Care Team (Late st Contact Info) Description 01/28/2025 2:00 PM CDT Office Visit [facility] General Surgery - [address], [address] [place] [phone] [place] [address] [place] [address] 10/11/2025 11:20 AM CDT Office Visit [facility] Family & Internal Medicine - [address] [address] [place] [address] [email or web address] [address] [place] [address] 01/28/2026 10:15 AM CDT Office Visit [facility] [phone] Ender Griffith MD [address] [address] documented as of this encounter Visit Diagnoses Not on filedocumented in this encounter Additional Health Concerns Assessment Noted Time PHQ-9 Depression Total Score: 0 04/05/20 7:30 AM CDT documented as of this encounter Care Teams Accounting Clerk Relationship Specialty [place] [address] [place] [address] PCP - General FAMILY PRACTICE 03/08/22 Ender Griffith MD Three [facility]. [facility]UEL [address] [place] [address] [place] Computer Systems Designer CARDIOVASCULAR DISEASE 01/22/17 Pan Miller MD 1 [place] [address] Consulting Physician RADIATION ONCOLOGY 01/15/25 documented as of this encounter
--- OUTSIDE RECORDS SUMMARY | 2025-01-26 07:26 | XMS_ITS | Encounter Summary ---
Author Organization [facility] - [facility] Address [facility] [place] [address] Care Team Providers Care Optical Laboratory Manager Name Role Phone Ender Griffith MD Unavailable [phone] Luciana Bran MD Primary Care Provider [phone] Pan Miller MD Unavailable Encounter Details Date Type Department Care Team (Late st Contact Info) Description 07/27/2022 MyCFilementt Message Enc [facility] Medical Group Family & Internal Medicine [facility] [address] [place] [address] Luc[place] Bran [place] [id number] [place] [address]. 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 LIANCE CLERK * JORDI Lau - 07/27/2022 1:[address] Briggs. Thank you LIANCE CLERK * Shirlene Chong RN - 07/27/2022 11:35 AM CST Please advise LIANCE CLERK documented in this encounter Plan of Treatment Upcoming Encounters Date Type Department Care Team (Late st Contact Info) Description 01/28/2025 2:00 PM CDT Office Visit [facility] Medical [facility] General Surgery - [address] [address] Rashaad Rubio MD [address] [place] [phone] 10/11/2025 11:20 AM CDT Office Visit [facility] Family & Internal Medicine - [address] [phone] Luciana Bran MD [address] [place] [address]. [address] [address] 01/28/2026 10:15 AM CDT Office Visit [facility] [phone] Ender Griffith MD Three [facility]. [facility] [address] [place] [address] documented as of this encounter Visit Diagnoses Not on filedocumented in this encounter Additional Health Concerns Assessment Noted Time PHQ-9 Depression Total Score: 0 04/05/20 22 7:30 AM CDT documented as of this encounter Care Teams Optical Laboratory Manager Relationship Specialty [place] [address] [facility]. [address] [place] [address] PCP - General FAMILY PRACTICE 03/08/22 Ender Griffith MD Three [facility]. [facility] [address] [place] [address] [employer] Oil Heat Technician CARDIOVASCULAR DISEASE 01/22/17 Pan Miller MD 1 [place] [address] Consulting Physician RADIATION ONCOLOGY 01/15/25 documented as of this encounter
--- OUTSIDE RECORDS SUMMARY | 2025-01-26 07:26 | XMS_ITS | Encounter Summary ---
Author Organization [facility] Address [facility] [place] [address] Care Team Providers Care Mining Helper Name Role Phone Ender Griffith MD Unavailable [phone] Luciana Bran MD Primary Care Provider [phone] Pan Miller MD Unavailable Encounter Details Date Type Department Care Team (Late st Contact Info) Description 03/08/2022 MyChart Message Enc [facility] Family & Internal Medicine [facility] [id number] [place] [address] Luciana Bran MD [address] [place] [address]. 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 No / Unsure 03/08/2022 7:04 AM CDT documented as of this encounter Plan of Treatment Upcoming Encounters Date Type Department Care Team (Late st Contact Info) Description 01/28/2025 2:00 PM CDT Office Visit [facility] General Surgery - [place] [address] [place] [address], [address] [place] [address] Rashaad Rubio MD [address] [place] [address] 10/11/2025 11:20 AM CDT Office Visit [facility] Family & Internal Medicine [facility] [address] [place] [address] [place] [address] [facility] [employer]. [address] [place] [address] 01/28/2026 10:15 AM CDT Office Visit [facility] [id number] [place] [phone] Ender Griffith MD [address] [address] documented as of this encounter Visit Diagnoses Not on filedocumented in this encounter Additional Health Concerns Assessment Noted Time PHQ-9 Depression Total Score: 4 08/23/19 22 9:55 AM MANAGER ELECTRONIC documented as of this encounter Care Teams Mining Helper Relationship Specialty [place] [address] [address] [place] [address] PCP - General FAMILY PRACTICE 03/08/22 Ender Griffith MD Three [facility]. [facility] [address] [place] [address] [place] Player Manager CARDIOVASCULAR DISEASE 01/22/17 Pan Miller MD 1 [place] [address] Consulting Physician RADIATION ONCOLOGY 01/15/25 documented as of this encounter
--- OUTSIDE RECORDS SUMMARY | 2025-01-26 07:26 | XMS_ITS | Encounter Summary ---
Author Organization [facility] Address [facility] [place] [address] Care Team Providers Care Dividend Deposit Voucher Clerk Name Role Phone Preeti Self MD Primary Care Provider [phone] Ender Griffith MD Unavailable [phone] Luciana Bran MD Primary Care Provider [phone] Pan Miller MD Unavailable Encounter Details Date Type Department Care Team (Late st Contact Info) Description 08/23/2021 My[employer] Technologiest Message Enc [facility] Medical [facility] Family & Internal Medicine [address] [address] Maribel Lin, TOE LASTER New script Social History Tobacco Use Types Packs/Day Years [...] 3, please move on to questions 3-9 2 08/22/2021 Sex and Gender Information Value Date Recorded Sex Assigned at Male 10/20/2018 1:11 PM CDT Legal Sex Male 12:04 AM CDT Gender Identity Male 10/20/2018 1:11 PM CDT Sexual Orientation Straight 10/20/2018 1: 11 PM CDT 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 No / Unsure 08/22/2021 9:46 AM NURSES ASSISTANT documented as of this encounter Plan of Treatment Upcoming Encounters Date Type Department Care Team (Late st Contact Info) Description 01/28/2025 2:00 PM CDT Office Visit [facility] General Surgery [facility] [address] [facility], [address] [place] [address] [place]ashaad [place] [address] [place] [address] [address] [place] [address] 10/11/2025 11:20 AM CDT Office Visit [facility] Family & Internal Medicine [address] [address] [place] Bran [place] [id number] [place] [address]. [facility] [address] [place] [address] 01/28/2026 10:15 AM CDT Office Visit [facility] [address] [place] [address] Ender Griffith MD [address] [address] documented as of this encounter Visit Diagnoses Not on filedocumented in this encounter Additional Health Concerns Assessment Noted Time PHQ-9 Depression Total Score: 4 08/23/19 22 9:55 AM NURSES ASSISTANT documented as of this encounter Care Teams Dividend Deposit Voucher Clerk Relationship Specialty Start Date End Date Preeti Self MD PCP - General INTERNAL MEDICINE 11/23/15 03/07/22 [place] [address] [address] [place] [address] PCP - General FAMILY PRACTICE 03/08/22 Ender Griffith MD Three [facility]. [facility] [address] [place] [address] [place] [employer] Press Feeder CARDIOVASCULAR DISEASE 01/22/17 Pan Miller MD 1 [place] [address] Consulting Physician RADIATION ONCOLOGY 01/15/25 documented as of this encounter
--- OUTSIDE RECORDS SUMMARY | 2025-01-26 07:27 | XMS_ITS | Encounter Summary ---
Author Organization [facility] Address [facility] [place] [address] Care Team Providers Care Military Pay Clerk Name Role Phone Preeti Self MD Primary Care Provider [phone] Ender Griffith MD Unavailable [phone] Luciana Bran MD Primary Care Provider [phone] Pan Miller MD Unavailable Encounter Details Date Type Department Care Team (Late st Contact Info) Description 09/24/2017 Abstract [facility] at [address] [address] Sohail Gramajo MA Social History Tobacco Use [...] Description 01/28/2025 2:00 PM CDT Office Visit [facility] Medical [facility] General Surgery [address], [address] [place] [address] [place] [address] [facility] [address] [place] [address] 10/11/2025 11:20 AM CDT Office Visit [facility] Medical Group Family & Internal Medicine - [place] [address] [place] [address] [place] [address] [facility]. [facility] [address] [place], [place] [address] 01/28/2026 10:15 AM CDT Office Visit [facility] [address] [place] [phone] Ender Griffith MD Three [address] [id number] documented as of this encounter Procedures Procedure Name Priority Date/Time Associated Diagnosis Comments LIPID PANEL Routine 08/27/2017 GLUCOSE BLOOD, QNT Routine 08/27/2017 documented in this encounter Results * GLUCOSE BLOOD, QNT (08/27/2017) GLUCOSE WHOLE BLOOD 92 70 - 100 mg/dL 08/27/2017 [facility] Final Result * LIPID PANEL (08/27/2017) CHOLESTEROL 135 HDL 33 08/27/2017 us [facility] Final Result documented in this encounter Visit Diagnoses Not on filedocumented in this encounter Additional Health Concerns Infection Onset Date Last Indicated Resolved Time COVID-19 Rule Out 09/30/2020 09/30/2020 10/01/2020 1:31 PM CDT COVID-19 Rule Out 10/28/2020 10/28/2020 10/30/2020 5:40 PM CDT documented as of this encounter Care Teams Military Pay Clerk Relationship Specialty Start Date End Date Preeti Self MD PCP - General INTERNAL MEDICINE 11/23/15 03/07/22 [place] [address] [facility]. [address] [place] [id number] PCP - General FAMILY PRACTICE 03/08/22 Ender Griffith MD Three [facility]. [facility] [address] [place] [address] [place] [employer] Painter CARDIOVASCULAR DISEASE 01/22/17 Pan Miller MD 1 [place] [address] Consulting Physician RADIATION ONCOLOGY 01/15/25 documented as of this encounter
--- OUTSIDE RECORDS SUMMARY | 2025-01-26 07:27 | XMS_ITS | Clinical Summary ---
Author Organization [facility] Address [address], [facility] 1 [place] [address] Phone Care Team Providers Care Chair Mender Name Role Phone Luciana Bran MD Primary Care Provider [phone] Gavin Galindo MD Unavailable [phone] Allergies No known active allergies Medications acetaminophen (TYLENOL) 500 MG Tablet Take 1,000 mg by mouth every 4 hours as needed. Active amLODIPine Besy-Benazepril HCl 5-40 MG Capsule Take 1 Capsule by mouth daily. 01/22/2022 Active B Complex Vitamins Capsule Take 1 Tablet by mouth daily. Active Cholecalciferol (D2000 Ultra Strength) 2000 UNIT Capsule Take 2,000 Units by mouth. Active Coenzyme Q10 100 MG Capsule Take 100 mg by mouth. Active finasteride (PROSCAR) 5 MG Tablet Take 1 Tablet by mouth daily. 05/02/2020 Active metoprolol Succinate (TOPROL-XL) 25 MG TABLET SR 24 HR Take 1 Tablet by mouth daily. 06/07/2020 Active rosuvastatin (CRESTOR) 20 MG Tablet Take 20 mg by mouth daily. 01/22/2022 Active tamsulosin (FLOMAX) 0.4 MG Capsule Take 1 Capsule by mouth daily. 06/19/2022 Active VITAMIN D PO Take by mouth. Active Ascorbic Acid (VITAMIN C PO) Take by mouth. Active ferrous sulfate 325 (65 Fe) MG TabletIndicatio ns:Iron deficiency,Jolene te deficiency TAKE 1 TABLET BY MOUTH EVERY OTHER DAY 45 Tablet 1 11/09/2024 Active folic acid (FOLVITE) 1 MG TabletIndicatio ns:Iron deficiency,Jolene te deficiency Take 1 Tablet by mouth daily for 120 days. 90 Tablet 1 11/13/2024 Active Active Problems Problem Noted Date Diagnosed Date Postsurgical aortocoronary bypass status 025 Thrombocytopenia, unspecified 08/17/2024 Iron deficiency 08/17/2024 Encounters Date Type Department Care Team Description 11/13/2024 MyChart RX Renewal [facility] [address] [place] [phone] Chana James, LOPEZ, DIRECTOR OF ATHLETICS Medication Renewal Reviewed 11/13/2024 Refill [facility] [address] [address] Chana James, LOPEZ, DIRECTOR OF ATHLETICS Medication Refill 11/12/2024 1:00 PM CDT Office Visit [facility] [address] [address] Maria Del Rosario Elkins APRN, DIRECTOR OF ATHLETICS Iron deficiency (Primary Dx); Folate deficiency; Thrombocytopenia (HCC); Fatty liver; Splenomegaly 11/12/2024 Travel 11/09/2024 Refill [facility] [address] [address] Chana James, LOPEZ, DIRECTOR OF ATHLETICS Medication Refill from Last 3 Months Family History Medical History Relation Name Comments Congestive Heart Failure Father Thyroid Disease Sister Relation Name Status Comments Father Sister Social History Tobacco Use Types Packs/Day Years Used Date Smoking Tobacco: Never Smokeless Tobacco: Never Tobacco Cessation:Counseling Given: Not Answered Alcohol Use Standard Drinks/Week Comments Yes 3 (1 standard drink = 0.6 oz pur e alcohol) Sex and Gender Information Value Date Recorded Sex Assigned at Not on file Legal Sex Male 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 Gender Identity Not on file Sexual Orientation Not on file Last Filed Vital Signs Vital Sign Reading Time Taken Comments Blood Pressure 110/68 11/12/2024 1:07 PM CDT Pulse 73 11/12/2024 1:07 PM CDT Temperature 37 C (98.6 F) 11/12/2024 1:07 PM CDT Respiratory Rate 18 11/12/2024 1:07 PM CDT Oxygen Saturation 97% 11/12/2024 1:07 PM CDT Inhaled Oxygen Concentration - - Weight 78.3 kg (172 lb 9.6 oz) 11/12/2024 1:07 P M CDT Height 167.6 cm (5' 6) 11/12/2024 1:07 PM CDT Body Mass Index 27.86 11/12/2024 1:07 PM CDT Plan of Treatment Upcoming Encounters Date Type Department Care Team (Late st Contact Info) Description 04/01/2025 1:00 PM CDT Office Visit [facility] [address] [address] [address] Gavin Galindo MD [address] [place] [phone] Health Maintenance Due Date Last Done Comments Hepatitis C Virus (HCV) Screening 1950 TdaP Immunization 1950 Cologuard 1997 Colonoscopy 1997 Colorectal Cancer Screening 1997 Immunochemical Fecal Occult Blood 1997 Pneumococcal Immunization (5 0+ years) (1 of 1 - PCV) 2002 Zoster Immunization (1 of 2) 2002 Respiratory Syncytial Virus (RSV) Immunization (Adult) (1 - Risk 60-74 years 1-dose series) 2012 SARS-COV-2 Immunization (3 - season) 2024 06/01/2021, 09/24/2020 Influenza Immunization (#1) 2025 Hepatitis B Immunization Aged Out No longer eligible based on patient's age to complete this topic Human Papillomavirus (HPV) Immunization Aged Out No longer eligible b ased on patient's age to complete this topic Meningococcal Immunization (ACWY) Aged Out No longer eligible b ased on patient's age to complete this topic Rotavirus Immunization Aged Out No lo nger eligible based on patient's age to complete this topic Insurance MEDICARE C [facility] Care Teams Chair Mender Relationship Specialty [place] [address] [address] PCP - General Family Medicine 06/26/24 Gavin Galindo MD [address] [place] [phone] Consulting Physician Oncology 06/26/24
--- OUTSIDE RECORDS SUMMARY | 2025-01-26 07:27 | XMS_ITS | Clinical Summary ---
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 10/07/19 16 Active Cholecalcifero l (VITAMIN D) 50 MCG (1999) Tab Active coenzyme Q-10 100 MG capsule Take 1 capsule (100 mg total) by mouth daily. Active Ascorbic Acid (VITAMIN C OR) Activ e FINASTERIDE 5 MG tabletIndicati ons:Benign prostatic hyperplasia with urinary obstruction TAKE 1 TABLET BY MOUTH DAILY 100 tablet 2 12/14/19 22 Active tamsulosin (FLOMAX) 0.4 MG CapIndications :Benign prostatic hyperplasia with urinary obstruction TAKE 1 CAPSULE BY MOUTH DAILY 100 capsule 2 06/19/20 22 Active B Complex Vitamins Cap Take 1 tablet by mouth daily. Active amLODIPine Besy-Benazepri l HCl 5-40 MG Cap TAKE 1 CAPSULE BY MOUTH DAILY 100 capsule 01/05/20 25 Active metoprolol succinate ER (TOPROL-XL) 25 MG 24 hr tabletIndicati ons:Sinus tachycardia TAKE 1 TABLET BY MOUTH ONCE DAILY 100 tablet 01/05/20 25 Active rosuvastatin (CRESTOR) 20 MG tablet TAKE 1 TABLET BY MOUTH AT BEDTIME 100 tablet 01/05/20 25 Active ferrous sulfate, 65 mg elemental, 325 (65 FE) MG tablet Take 1 tablet (325 mg total) by mouth every other day. 11/10/19 Active folic acid (FOLVITE) 1 MG tablet Take 1 tablet (1 mg total) by mouth daily. 11/14/19 Active acetaminophen 325 MG tablet Take 1 tablet (325 mg total) by mouth every 4 (four) hours as needed. 025 Discontinued(S top Taking at Discharge) B Complex-C Tab tablet Take 1 tablet by mouth daily. 025 Discontinued(D uplicate Med) amLODIPine Besy-Benazepri l HCl 5-40 MG Cap take 1 capsule by mouth daily 100 capsule 4 01/20/20 24 025 Discontinued metoprolol succinate ER (TOPROL-XL) 25 MG 24 hr tabletIndicati ons:Sinus tachycardia take 1 tablet by mouth daily 100 tablet 4 01/20/20 24 025 Discontinued rosuvastatin (CRESTOR) 20 MG tablet TAKE 1 TABLET BY MOUTH AT BEDTIME 100 tablet 4 01/20/20 025 Discontinued cephALEXin (KEFLEX) 500 MG capsule Take 1 capsule (500 mg total) by mouth 2 (two) times daily. 14 capsule 01/08/20 25 025 Discontinued(T herapy completed) HYDROcodone-ac etaminophen (NORCO) 5-325 MG tabletIndicati ons:Acute Pain < 7 Day Supply Take 1 tablet by mouth every 6 (six) hours as needed for Pain. Indications: Acute Pain < 7 Day Supply 20 tablet 01/08/20 25 025 Additional Information Patient not taking.Reported on 01/14/2025 Active Problems Problem Noted Date Diagnosed Date Left inguinal hernia 2024 Hx of laminectomy 04/05/2022 Myelomalacia of cervical cord ([facility]/HCC [facility]/HCC) 04/05/2022 Bilateral hip joint arthritis 04/05/2022 Screen for colon cancer 06/12/2021 Overview (06/12/2021): Added automatically from request for surgery [id number] Age-related cataract of both eyes, unspecified age-related cataract type 09/12/2020 Lumbar back pain with radicu lopathy affecting left lower extremity 10/28/2018 Abnormal digital rectal exam 06/12/2018 Elevated PSA 06/12/2018 Eczematous dermatitis 03/17/2018 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 Continue rosuvastatin. Assessment & Plan (11/16/2022 9:37 AM CDT): His lipids from 2021 are well controlled. Continue rosuvastatin. Assessment & Plan (11/10/2021 1:36 PM CDT): His lipids over the past 3 to 4 years have shown an increasing trend. When I first met him, his triglycerides were 160 and now they are 224. His LDL has been well controlled. Continue rosuvastatin. I discussed that he potentially would need triglyceride lowering therapy, but I think lifestyle modifications first is fine. 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 Denies any recent anginal symptoms. He continues to stay active by walking 4 to 5 miles every day. Continue medical management with aspirin, metoprolol and rosuvastatin. Assessment & Plan (12/20/2023 10:43 AM CDT): Patient has been doing well. Reports left sided nonexertional chest pain for the past 6 months with associated numbness and tingling in his upper extremities. Pain appears to be musculoskeletal in nature. History of cervical spine fusion in 2010. Recommend stress test evaluation in the future if symptoms continue or worsen. Continue rosuvastatin 20 mg daily. Assessment & Plan (11/16/2022 9:29 AM CDT): He is status post two-vessel coronary artery bypass surgery. He is not having angina. Continue medical management of coronary artery disease with aspirin, metoprolol and rosuvastatin. Assessment & Plan (11/10/2021 1:33 PM CDT): He is status post two-vessel coronary artery bypass surgery. He is not having angina. Continue medical management of coronary artery disease with aspirin, metoprolol and rosuvastatin. Dyslipidemia Assessment & Plan (12/20/2023 10:37 AM CDT): Recent lipid panel with LDL of 46. Continue Rosuvastatin. Hypertension, essential Assessment & Plan (01/22/2025 10:48 AM CDT): Blood pressure is well-controlled in office. He does report an instance of hypotension 1 week after his recent hernia surgery. He has been monitoring his blood pressure at home which has been well-controlled. Continue amlodipine-benazepril, metoprolol. Advised patient to continue to monitor blood pressure at home and let us know if it is consistently low. Assessment & Plan (12/20/2023 10:38 AM CDT): Blood pressure well controlled in office today at 104/70 mmHg. Continue amlodipine and metoprolol. Assessment & Plan (11/16/2022 9:38 AM CDT): His blood pressure has been slightly lower. Reduce metoprolol to 25 mg daily. Continue amlodipine and benazepril. Assessment & Plan (11/10/2021 1:34 PM CDT): His blood pressure is well controlled. Continue metoprolol, amlodipine and benazepril. Resolved Problems Problem Noted Date Diagnosed Date Resolved Date Pre-operative clearance 09/12/2020 03/2 02/2021 PAD (peripheral artery disease) 11/06/2016 Encounters Date Type Department Care Team Description 01/22/2025 10:30 AM CDT Office Visit [facility] [address] [phone] Rin Silva PA Coronary Artery Disease 01/22/2025 Travel 01/15/2025 9:14 AM CDT - 01/15/2025 11:59 PM CDT Hospital Encounter [facility] Radiation Oncology [address] [place] [address] [place] [address] Pan Miller MD Consult Discharge Disposition: Home or Self Care (Routine Discharge) 01/14/2025 3:15 PM CDT Office Visit [facility] Medical [facility] General Surgery [address], [address] [place] [phone] Rashaad Rubio MD Postop Followup (Left inguinal hernia repair 01/07/25- sore and bruised) 01/14/2025 Scan [employer] INFO SRVCS Scanned, [facility] 01/14/2025 Travel 01/07/2025 8:30 AM CDT - 01/07/2025 10:10 AM CDT Surgery [facility] [address] [place] [address] Rashaad Rubio MD HERNIORRHAPHY INGUINAL- open repair with mesh 01/07/2025 8:15 AM CDT Anesthesia Event [facility] [address] [place] [address] Sherri Green CRNA Smith, Donald E, CRNA 01/07/2025 6:57 AM CDT - 01/07/2025 11:58 AM CDT Hospital Encounter [facility] [address] [place] [address] Rashaad Rubio MD Discharge Disposition: Home or Self Care (Routine Discharge) 01/07/2025 Travel 01/06/2025 MyChart Message Enc [facility] [address] [phone] Rin Silva PA EKG test results 01/05/2025 6:45 AM CDT - 01/05/2025 11:59 PM CDT Hospital Encounter [facility] Cardiopulmonary Services [address] [place] [address] Lory Obrien MD Discharge Disposition: Home or Self Care (Routine Discharge) 01/05/2025 6:44 AM CDT Hospital Encounter [facility] [address] [place] [address] Rashaad Rubio MD Discharge Disposition: Home or Self Care (Routine Discharge) 01/05/2025 Travel 12/30/2024 Telephone [facility] Radiation Oncology [address] [place] [address] [place] [address] Pan Miller MD Appointment Request 12/30/2024 Orders Only [facility] [place] [address] Gavin Galindo MD 12/28/2024 Telephone [facility] Day [facility] [address] [place] [address] Ender Griffith MD Surgical Clearance (Requesting clearance for pts Inguinal Hernia surgery with Dr Rubio on 01/07 at [facility]. Please advise) 2024 Telephone [facility] [facility], [address] [address] Ender Griffith MD Surgical Clearance 2024 Prep for Procedure [facility] [id number] [place] [address], [address] [place] [phone] Rashaad Rubio MD 2024 Telephone [facility] [id number] [place] [address], [address] [phone] Rashaad Rubio MD Surgical Clearance 11/26/2024 1:30 PM CDT Office Visit [place] [facility] [address], [address] [place] [address] Rashaad Rubio MD Hernia (Left inguinal hernia consult) 11/26/2024 Travel 11/12/2024 Scan [facility] INFO SRVCS Scanned, [facility] 11/11/2024 Results Follow-Up [facility] Internal [address] [phone] Luciana Bran MD USV CAROTID DUPLEX ALLAN 11/11/2024 Orders Only [facility] Internal [address] [phone] Luciana Bran MD 11/11/2024 Results Follow-Up [facility] [address] [phone] Luciana Bran MD CT ABD+PEL W CON 11/10/2024 9:39 AM CDT - 11/10/2024 11:59 PM CDT Hospital Encounter [facility] [address] [place] [address] Luciana Bran MD Discharge Disposition: Home or Self Care (Routine Discharge) 11/10/2024 Travel 11/06/2024 MyChart Message Enc [facility] [address] [phone] [address] scan 11/04/2024 12:55 PM CDT - 11/04/2024 11:59 PM CDT Hospital Encounter [facility] [address] [place] [address] Chana James NP Discharge Disposition: Home or Self Care (Routine Discharge) 11/04/2024 Orders Only [facility] [address] [place] [address] Chana James NP 11/04/2024 Travel 11/03/2024 9:19 AM CDT - 11/03/2024 11:59 PM CD[place] [address] [place] [address] Luciana Bran MD Discharge Disposition: Home or Self Care (Routine Discharge) 11/03/2024 Travel 10/30/2024 Orders Only [facility] Family [facility] Internal Medicine - [place] [address] [place] [phone] Luciana Bran MD from Last 3 Months Immunizations Immunization Administration Dates Next Due Fluzone High Dose - >Age 65 (Prefilled Syringe) 04/27/2019(Deferred: Patient Refused) Wacai ([employer]) COVID-19 AD26 VACCINE 0.5 ML IM SUSP 09/24/2020 Pneumococcal (Prevnar 20) 12/14/2022(Def erred: Patient/family declined) Shingrix 12/14/2022(Deferred: Patient/family declined) Family History Medical History Relation Comments No Known Problems Brother Heart Father Heart Disease Father black lung disease Father No Known Problems Maternal Aunt No Known Problems Maternal Grandfather No Known Problems Maternal Grandmother No Known Problems Maternal Uncle Arthritis Mother Hypotension Mother No Known Problems Paternal Aunt No Known Problems Paternal Grandfather No Known Problems Paternal Grandmother No Known Problems Paternal Uncle No Known Problems Sister Relation Status Comments Brother Father Maternal Aunt Maternal Grandfather Maternal Grandmother Maternal Uncle Mother Paternal Aunt Paternal Grandfather Paternal Grandmother Paternal Uncle Sister Social History Tobacco Use Types Packs/Day Years Used Date Smoking Tobacco: Never Passive Smoke Exposure: Never Smokeless Tobacco: Never Tobacco Cessation:Counseling Given: Not Answered Alcohol Use Standard Drinks/Week Comments Yes 3.3 [...] 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 Not on file Not on file Last Filed Vital Signs Vital Sign Reading Time Taken Comments Blood Pressure 120/70 01/22/2025 10:19 AM CDT Pulse 76 01/22/2025 10:19 AM CDT Temperature 36.7 C (98.1 F) 01/14/2025 2:21 PM CDT Respiratory Rate 20 01/14/2025 2:21 PM CDT Oxygen Saturation 97% 01/15/2025 9:34 AM CDT Inhaled Oxygen Concentration - - Weight 76.7 kg (169 lb) 01/22/2025 10:19 AM CDT Height 165.1 cm (5' 5) 01/22/2025 10:19 AM CDT Body Mass Index 28.12 01/22/2025 10:19 AM CDT Plan of Treatment Upcoming Encounters Date Type Department Care Team (Late st Contact Info) Description 01/28/2025 2:00 PM CDT Office Visit [facility] General Surgery [facility] [address] [facility], [address] [place] [address] [place] [address] [phone] 10/11/2025 11:20 AM CDT Office Visit [facility] & Internal Medicine [facility] [address] [place] [address] [place] [address] [facility]. [address] [address] 01/28/2026 10:15 AM CDT [facility] [id number] [place] [phone] Ender Griffith MD [address] [phone] Health Maintenance Due Date Last Done Comments Hepatitis C 1970 DTaP, Tdap and Td Vaccines ( 1 - Tdap) 12/01/1971 Pneumococcal Vaccine: 50+ Years (1 of 2 - PCV) 12/01/1971 RSV Immunization or 60+ Years (1 - Risk 60-74 years 1-dose series) 2012 Annual Medicare Wellness Visit 08/23/2022 08/22/2021 COVID-19 Vaccine (3 - 2023-2 5 season) 2024 06/01/2021, 09/24/2020 Colorectal Cancer Screening Colonoscopy (10 Years) 06/20/2026 06/20/2021, 10/22/2011, Zoster Vaccines (1 of 2) 12/06/2026 Pos tponed from 2002 (Patient Refused) Colorectal Cancer Screening FIT/FOBT (1 Year) Discontinued 03/16/2021 PHQ-2 (Physician [place]) Completed 10/09/2024 Meningococcal B Vaccine Aged Out No l onger eligible based on patient's age to complete this topic Meningococcal Vaccine Aged Out No aga kimberly eligible based on patient's age to complete this topic RSV Immunizations Under 20 Months Aged Out No longer eligible b ased on patient's age to complete this topic Medical Devices Implanted Type Area Armature Inspector Device Identifier Shelf Expiration Date Model / Serial / Lot Iol [place] [employer]ic [id number] - [id number] Implanted:Qty: 1 on 10/03/2020 by Dipak Rios MD at [facility] Lens Left: Eye JERZY 04/18/2023 [id number] / [id number] / Iol [place] [employer] Tor[employer] [id number] - [id number] Implanted:Qty: 1 on 10/31/2020 by Dipak Rios MD at [facility] Lens Right: Eye JERZY 03/07/2022 [id number] / [id number] / Plug Large Light Mesh - [id number] Implanted:Qty: 1 on 01/07/2025 by Rashaad Rubio MD at [facility] Mesh Left: Abdomen [employer] - DIV C R [employer] [id number] 03/21/2029 [id number] / / [id number] On-Q Antimicrobial Expansion Kits With Silversoaker Antimicrobial Catheter Implanted:Qty: 1 on 01/07/2025 by Rashaad Rubio MD at [facility] Left: Abdomen [employer] [id number] 04/05/2027 [id number] / / [id number] Procedures Procedure Name Priority Date/Time Associated Diagnosis Comments REPAIR ING HERNIA,5+Y/O,REDUCIB L 01/07/2025 8:15 AM CDT Left inguinal hernia Case Notes C ECG 12-LEAD Routine 01/05/2025 6:56 AM CDT Pre-op testing MRSA SCREENING Routine 01/05/2025 6:48 AM CDT Preoperative clearance USV CAROTID DUPLEX ALLAN Routine 11/10/2024 10:11 AM CDT Carotid artery plaque, bilateral IRON SAT PANEL (IRON,IBC,%SAT) Routine 11/04/2024 1:07 PM CDT Thrombocytopenia Fatty liver Iron deficiency FERRITIN Routine 11/04/2024 1:07 PM CDT Thrombocytopenia Fatty liver Iron deficiency VITAMIN B12 / FOLATE Routine 11/04/2024 1:07 PM CDT Thrombocytopenia Fatty liver Iron deficiency COMPREHENSIVE METABOLIC PANEL Routine 11/04/2024 1:07 PM CDT Thrombocytopenia Fatty liver Iron deficiency CBC W/DIFF AUTOMATED Routine 11/04/2024 1:07 PM CDT Thrombocytopenia Fatty liver Iron deficiency CT ABD+PEL W CON Routine 11/03/2024 10:1 8 AM CDT Left inguinal hernia COLONOSCOPY GENERIC (SCAN ORDER) 06/20/2021 FECAL BLOOD OCCULT (SCAN ORDER) Routine 03/16/2021 from Last 3 Months or Most Recently Relevant to Health Maintenance Results * ECG 12-Lead (01/05/2025 6:56 AM CDT) 01/05/2025 6:56 AM CDT Narrative [facility] ([facility]) RAD - 01/06/2025 6:36 AM CDT [facility] Test Date: 2025-01-05 Pat Name: [facility] Department: Room: Gender: Male [employer]: : 1950 Requested By: LORY OBRIEN Order Number: [id number] Reading MD: Kristopher Almazan Measurements Intervals [place] Rate: 73 P: 57 NE: 226 QRS: 67 QRSD: 89 T: 3 QT: 359 QTc: 397 Interpretive Statements SINUS RHYTHM WITH FIRST DEGREE AV BLOCK NONSPECIFIC T-WAVE ABNORMALITY Compared to ECG 08/10/2022 20:14:18 T-wave abnormality now present Procedure Note Kristopher Almazan MD - 01/06/2025 [facility] Test Date: 2025-01-05 Pat Name: [facility] Department: Room: Gender: Male [employer]: : 1950 Requested By: LORY OBRIEN Order Number: [id number] Reading MD: Kristopher Almazan Measurements Intervals [place] Rate: 73 P: 57 NE: 226 QRS: 67 QRSD: 89 T: 3 QT: 359 QTc: 397 Interpretive Statements SINUS RHYTHM WITH FIRST DEGREE AV BLOCK NONSPECIFIC T-WAVE ABNORMALITY Compared to ECG 08/10/2022 20:14:18 T-wave abnormality now present us Lory Obrien MD ECG ORDERABLES Final Result [facility] ([facility]) RAD * MRSA SCREENING (01/05/2025 6:48 AM CDT) SPEC DESCRIPTION NASAL 01/05/2025 6:47 AM CDT [facility] SPECIAL REQUESTS NO SPECIAL REQUEST 01/05/2025 6:47 AM CDT [facility] CULTURE RESULT NO METHICILLIN RESISTANT STAPHYLOCOCCUS AUREUS ISOLATED 01/06/2025 11:34 AM CDT [facility] SPECIMEN FROM INTERNAL NOSE / Unknown 01/05/2025 6:48 AM CDT 01/05/2025 6:49 AM CDT us Rashaad Rubio MD MICROBIOLOGY - GENERAL ORDERABLE S Final Result Performing Organization Address City/State/[facility] Co de Phone Number [facility] [address] [place] [address], [place] [phone] [facility] [address] [place] [address], [place] [phone] * USV CAROTID DUPLEX ALLAN (11/10/2024 10:11 AM CDT) Anatomical Region Laterality Modality Neck Ultrasound 11/10/2024 11:1 5 AM CDT Impressions 11/10/2024 11:18 AM CDT IMPRESSION: 1. No evidence of hemodynamically significant stenosis. Similar plaque formation. Ordered By: LUCIANA BRAN Interpreted By: Vickie Chao, 11/10/2024 11:15 AM Narrative 11/10/2024 11:18 AM CDT [address] [place] [address] IMAGING STUDIES:USV CAROTID DUPLEX ALLAN DATE: 11/10/2024 9:42 AM INDICATION: carotid plaque . COMPARISON: 10/28/2023. TECHNIQUE: Examination performed by director of pulmonary unit using grayscale with color flow and spectral Doppler. Selected images submitted for interpretation. Worksheet completed. FINDINGS: RIGHT CAROTID BIFURCATION: Peak systolic velocities (cm/s) CCA 76, ICA 130, ECA 105, ICA/CCA 1.75. Prior measurement of 1.28. Mild to moderate plaque.. There is no evidence to suggest the presence of a hemodynamically significant stenosis within the proximal right internal carotid artery or carotid bulb. (less than 50% diameter stenosis). LEFT CAROTID BIFURCATION: Peak systolic velocities (cm/s) CCA 58, ICA 75, ECA 99, ICA/CCA 0.91. Prior measurement of 1.04. Mild to moderate plaque. There is no evidence to suggest the presence of a hemodynamically significant stenosis within the proximal left internal carotid artery or carotid bulb. (less than 50% diameter stenosis). VERTEBRAL ARTERIES: Antegrade flow present in both vertebral arteries. Stenoses evaluated using criteria similar to NASCET. Procedure Note Troy Chao MD - 11/10/2024 [facility] [address] [facility] [address] [place] [phone] IMAGING STUDIES:USV CAROTID DUPLEX BILDATE: 11/10/2024 9:42 AM INDICATION: carotid plaque . COMPARISON: 10/28/2023. TECHNIQUE: Examination performed by director of pulmonary unit using grayscale withcolor flow and spectral Doppler. Selected images submitted forinterpretation. Worksheet completed. FINDINGS: RIGHT CAROTID BIFURCATION: Peak systolic velocities (cm/s) CCA 76, ICA 130, ECA 105, ICA/CCA1.75. Prior measurement of 1.28. Mild to moderate plaque.. There is no evidence to suggest the presence of a hemodynamicallysignificant stenosis within the proximal right internal carotid artery orcarotid bulb. (less than 50% diameter stenosis). LEFT CAROTID BIFURCATION: Peak systolic velocities (cm/s) CCA 58, ICA 75, ECA 99, ICA/CCA 0.91.Prior measurement of 1.04. Mild to moderate plaque. There is no evidence to suggest the presence of a hemodynamicallysignificant stenosis within the proximal left internal carotid artery orcarotid bulb. (less than 50% diameter stenosis). VERTEBRAL ARTERIES: Antegrade flow present in both vertebral arteries. Stenoses evaluated using criteria similar to NASCET. IMPRESSION: 1. No evidence of hemodynamically significant stenosis. Similar plaqueformation. Ordered By: LUCIANA BRAN Interpreted By: Vickie Chao, 11/10/2024 11:15 AM Luciana Bran MD [facility] Final Result * (ABNORMAL) VITAMIN B12 / FOLATE (11/04/2024 1:07 PM CDT) VITAMIN B12 S/P/B 1,286(H) 193 - 986 PG/ML 11/04/2024 2:53 PM CDT [facility] FOLATE >20.0 8.6 - 58.9 NG/ML 11/04/2024 2:53 PM CDT [facility] 11/04/2024 1:07 PM CDT Chana James NP LABORATORY Final Result Performing Organization Address City/[facility]/ZIP Co de Phone Number [facility] [address] [place] [address], [place] [phone] * IRON SAT PANEL (IRON,IBC,%SAT) (11/04/2024 1:07 PM CDT) IRON 132 65 - 175 MCG/DL 11/04/2024 1:53 PM CDT [facility] IRON BINDING CAPACITY 286 250 - 450 MCG/DL 11/04/2024 1:53 PM CDT [facility] IRON SATURATION 46 20 - 55 % 1:53 PM CDT [facility] 11/04/2024 1:07 PM CDT Chana James NP LABORATORY Final Result Performing Organization Address City/[facility]/ZIP Co de Phone Number [facility] [address] [place] [address], [place] [phone] * (ABNORMAL) COMPREHENSIVE METABOLIC PANEL (11/04/2024 1:07 PM CDT) [facility] GLUCOSE 122(H) 70 - 99 MG/DL 11/04/2024 2:04 PM T [facility] BUN 21(H) 7 - 18 MG/DL 11/04/2024 2:04 PM T [facility] CREATININE S/P/B 0.97 0.7 - 1.3 MG/DL 11/04/2024 2:04 PM T [facility] SODIUM S/P/B 137 136 - 145 MMOL/L 11/04/2024 2:04 PM T [facility] POTASSIUM S/P/B 4.3 3.5 - 5.1 MMOL/L 11/04/2024 2:04 PM T [facility] CHLORIDE S/P/B 104 100 - 108 MMOL/L 11/04/2024 2:04 PM T [facility] CO2 29.0 21 - 32 MMOL/L 11/04/2024 2:04 PM T [facility] CALCIUM S/P/B 9.0 8.5 - 10.1 MG/DL 11/04/2024 2:04 PM T [facility] BILIRUBIN TOTAL S/P/B 0.6 0.2 - 1.2 MG/DL 11/04/2024 2:04 PM T [facility] TOTAL PROTEIN S/P/B 6.6 6.4 - 8.2 G/DL 11/04/2024 2:04 PM T [facility] ALBUMIN S/P/B 4.2 3.4 - 5.0 G/DL 11/04/2024 2:04 PM T [facility] AST 17 15 - 37 U/L 11/04/2024 2:04 PM CDT [facility] ALT 18 16 - 60 U/L 11/04/2024 2:04 PM CDT [facility] ALKALINE PHOSPHATASE S/P/B 63 50 - 136 U/L 11/04/2024 2:04 PM CDT [facility] ANION GAP 4.0(L) 5 - 15 MMOL/L 11/04/2024 2:04 PM CDT [facility] BUN CREATININE RATIO 21.6 6 - 26 11/04/2024 2:04 PM T [facility] A/G RATIO 1.8 1.0 - 2.0 RATIO 11/04/2024 2:04 PM T [facility] GFR ESTIMATE 83(L) >90 ML/MIN/1.7 3 M2 11/04/2024 2:04 PM T [facility] Comment: NOTE: eGFR is not calculated for patients <18 years of age. This is an estimated GFR calculation using the new CKD EPI creatinine equation without race and so does not require a correction factor for race. This estimated GFR should not be used for calculating drug doses. 11/04/2024 1:07 PM CDT us Chana James NP LABORATORY Final Result [facility] [address] [place] [address], * (ABNORMAL) CBC W/DIFF AUTOMATED (11/04/2024 1:07 PM CDT) WBC 7.73 4.4 - 11.0 x10'3/uL 11/04/2024 1:33 PM CDT [facility] RBC 4.74 4.50 - 5.90 x10'6/uL 11/04/2024 1:33 PM CDT [facility] HGB 14.7 14.0 - 17.5 G/DL 11/04/2024 1:33 PM T [facility] HCT 42.2 41.5 - 50.4 % 11/04/2024 1:33 PM T [facility] MCV 89.0 80.0 - 96.0 FL 11/04/2024 1:33 PM T [facility] MCH 31.0 26.5 - 31.4 PG 11/04/2024 1:33 PM T [facility] MCHC 34.8 31.9 - 34.8 G/DL 11/04/2024 1:33 PM T [facility] RDW 13.2 12.3 - 14.3 % 11/04/2024 1:33 PM T [facility] PLT 150(L) 151 - 353 x10'3/uL 11/04/2024 1:33 PM T [facility] MPV 10.8 9.7 - 11.9 FL 11/04/2024 1:33 PM T [facility] RBC MORPHOLOGY NORMAL 11/04/2024 1:33 PM T [facility] PLT MORPH. NORMAL 11/04/2024 1:33 PM T [facility] WBC MORPHOLOGY NORMAL 11/04/2024 1:33 PM T [facility] LYMPHOCYTES % 19.5 15.8 - 45.0 % 11/04/2024 1:33 PM T [facility] NEUTROPHILS % 70.8 42.1 - 71.9 % 11/04/2024 1:33 PM T [facility] MONOCYTES % 7.2 5.7 - 12.5 % 11/04/2024 1:33 PM T [facility] EOSINOPHILS 1.6 0.0 - 5.6 % 11/04/2024 1:33 PM CDT [facility] BASOPHILS 0.5 0.0 - 1.3 % 11/04/2024 1:33 PM CDT [facility] ABS. NEUTROPHILS 5.47 1.40 - 6.00 x10'3/uL 11/04/2024 1:33 PM CDT [facility] IMMATURE GRANS % 0.4 0.0 - 0.5 % 11/04/2024 1:33 PM CDT [facility] ABS. LYMPHOCYTES 1.51 0.80 - 4.70 x10'3/uL 11/04/2024 1:33 PM CDT [facility] 11/04/2024 1:07 PM CDT us Chana James NP LABORATORY Final Result [facility] [address] [place] [address], [place] [phone] * FERRITIN (11/04/2024 1:07 PM CDT) FERRITIN 82.0 8.0 - 388.0 NG/ML 11/04/2024 2:04 PM CDT [facility] 11/04/2024 1:07 PM CDT Chana James NP LABORATORY Final Result [facility] [address] [place] [address], [place] [phone] * CT ABD+PEL W CON (11/03/2024 10:18 AM CDT) Anatomical Region Laterality Modality Abdomen Computed Tomogra phy 11/10/2024 3:00 PM CDT Impressions 11/10/2024 3:09 PM CDT =====IMPRESSION:===== 1. Grossly stable small 2.2 cm fat-containing left inguinal hernia. No complicating features. 2. Stable anterior abdominal wall hernia repair without recurrence. No complicating features. Adjacent bowel is within normal limits. 3. No renal calculi or hydronephrosis. Normal appendix Ordered By: LUCIANA BRAN Interpreted By: Vickie Chao, 11/10/2024 3:00 PM Narrative 11/10/2024 3:09 PM CDT [facility] [address] [facility] [address] [place] [id number] EXAMINATION: CT ABDOMEN AND PELVIS WITH CONTRAST EXAM DATE/TIME: 11/03/2024 9:57 AM REASON FOR EXAM: Left hip pain for one year. ventral hernia and left inguinal hernia COMPARISON: 11/16/2020 TECHNIQUE: Axial imaging of the abdomen and pelvis was obtained in corticomedullary and excretory phase after 80 mL of Isovue-370 was injected. A dose lowering technique was used for this procedure, which may include, but is not limited to, dose reduction technique, automated exposure control, iterative reconstruction, ALARA (As Low As Reasonably Achievable), or Image Gently techniques. Oral contrast was not administered. FINDINGS: Abdomen: Adrenal glands: Unremarkable. Kidneys: No suspicious lesion or hydronephrosis.No renal calculi Spleen: Unremarkable. Stomach and duodenum: Unremarkable. Gallbladder: Partially filled and grossly unremarkable. Possible subtle calculus near the neck or cystic duct of the gallbladder. Pancreas grossly unremarkable. Hepatic parenchyma are within normal limits with no evidence of intrahepatic biliary dilatation or mass. Portal vein patent. No mesenteric lymphadenopathy or evidence of small bowel obstruction. No free fluid or free air. No evidence of retroperitoneal lymphadenopathy. No evidence of an abdominal aortic aneurysm. Scattered fecal material and gas throughout the colon without evidence of mass or dilatation. Appendix not inflamed. Anterior abdominal wall hernia repair without recurrence. No complicating features. Adjacent bowel is within normal limits. Pelvis: Urinary bladder and rectum are unremarkable.. Grossly similar fat-containing left inguinal hernia measuring 2.2 cm. On bone windows, no evidence of suspicious skeletal lesion or acute compression fracture deformity. Limited evaluation of the lower thorax demonstrates no acute abnormality. Coronary artery calcifications. Procedure Note Troy Chao MD - 11/10/2024 [facility] [address] [place] [address] EXAMINATION: CT ABDOMEN AND PELVIS WITH CONTRAST EXAM DATE/TIME: 11/03/2024 9:57 AM REASON FOR EXAM: Left hip pain for one year. ventral hernia and leftinguinal hernia COMPARISON: 11/16/2020 TECHNIQUE: Axial imaging of the abdomen and pelvis was obtained incorticomedullary and excretory phase after 80 mL of Isovue-370 wasinjected. A dose lowering technique was used for this procedure, whichmay include, but is not limited to, dose reduction technique, automatedexposure control, iterative reconstruction, ALARA (As Low As ReasonablyAchievable), or Image Gently techniques. Oral contrast was not administered. FINDINGS: Abdomen: Adrenal glands: Unremarkable. Kidneys: No suspicious lesion or hydronephrosis.No renal calculi Spleen: Unremarkable. Stomach and duodenum: Unremarkable. Gallbladder: Partially filled and grossly unremarkable. Possible subtlecalculus near the neck or cystic duct of the gallbladder. Pancreas grossly unremarkable. Hepatic parenchyma are within normal limits with no evidence ofintrahepatic biliary dilatation or mass. Portal vein patent. No mesenteric lymphadenopathy or evidence of small bowel obstruction. Nofree fluid or free air. No evidence of retroperitoneal lymphadenopathy. No evidence of an abdominal aortic aneurysm. Scattered fecal material and gas throughout the colon without evidence ofmass or dilatation. Appendix not inflamed. Anterior abdominal wall hernia repair without recurrence. No complicatingfeatures. Adjacent bowel is within normal limits. Pelvis: Urinary bladder and rectum are unremarkable.. Grossly similarfat- containing left inguinal hernia measuring 2.2 cm. On bone windows, no evidence of suspicious skeletal lesion or acutecompression fracture deformity. Limited evaluation of the lower thorax demonstrates no acute abnormality.Coronary artery calcifications. =====IMPRESSION:===== 1. Grossly stable small 2.2 cm fat-containing left inguinal hernia. Nocomplicating features. 2. Stable anterior abdominal wall hernia repair without recurrence. Nocomplicating features. Adjacent bowel is within normal limits. 3. No renal calculi or hydronephrosis. Normal appendix Ordered By: LUCIANA BRAN Interpreted By: Vickie Chao, 11/10/2024 3:00 PM us Luciana Bran MD CT Final Result * COLONOSCOPY GENERIC (06/20/2021) 06/20/2021 Narrative 06/20/2021 Ordered by an unspecified provider. 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 [address] [place] [address] PCP - General FAMILY PRACTICE 03/08/22 Ender Griffith MD Three [facility]. [facility] [address] [place] [address] [employer] Manager CARDIOVASCULAR DISEASE 01/22/17 Pan Miller MD [address] [place], [place] [id number] Consulting Physician RADIATION ONCOLOGY 01/15/25
== END 2025-01-26 07:21 | disposition home or self-care (01) ==
PROVIDERS: PCP Internal Medicine; Visit Provider Urology
DX: C61 Malignant neoplasm of prostate (principal)
CPT/HCPCS: 78815; A9596

== ENCOUNTER 2025-02-23 13:49 | Outpatient (CLI) | payer MEDICARE, SELFPAY ==
--- NOTE | ~2025-02-23 | XR_ITS ---
EXAMINATION: XR chest 2V 02/23/2025 15:36 INDICATION: Malignant neoplasm of the prostate gland PROCEDURE: PA and lateral views of the chest COMPARISON: No prior studies for comparison. FINDINGS: The lungs are clear. The cardiomediastinal silhouette is within normal limits. There are no pleural effusions. There is no pneumothorax suspected. Status post median sternotomy for CABG. IMPRESSION: 1: NO ACUTE CARDIOPULMONARY DISEASE. Reviewed, dictated and finalized at location O.
--- OUTSIDE RECORDS SUMMARY | 2025-02-23 14:08 | XMS_ITS | Clinical Summary ---
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 Gender Identity Not on file Sexual Orientation [...] CDT Office Visit [facility] [address] [address] Gavin Galindo MD [address] [place] [phone] Health Maintenance Due Date Last Done Comments Hepatitis C Virus (HCV) Screening 1950 TdaP Immunization 1950 Pneumococcal Immunization (5 0+ years) (1 of 2 - PCV) 12/01/1971 Zoster Immunization (1 of 2) 12/01/1971 Cologuard 1997 Colonoscopy 1997 Colorectal Cancer Screening 1997 Immunochemical Fecal Occult Blood 1997 Respiratory Syncytial Virus (RSV) Immunization (Adult) (1 - Risk 60-74 years 1-dose series) 2012 Influenza Immunization (#1) 2025 SARS-COV-2 Immunization ( season) 2025 06/01/2021, 09/24/2020 Hepatitis B Immunization Aged Out No longer [...] to complete this topic Insurance MEDICARE C [facility] [place] [address] Care Teams Sales And Service Change Leader Relationship Specialty [place] [address] [facility] [place] [address] PCP - General Family Medicine 06/26/24 Gavin Galindo MD [address] [place], [place] [phone] Consulting Physician Oncology 06/26/24
--- OUTSIDE RECORDS SUMMARY | 2025-02-23 14:08 | XMS_ITS | Clinical Summary ---
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
--- OUTSIDE RECORDS SUMMARY | 2025-02-23 14:08 | XMS_ITS | Clinical Summary ---
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 Gender Identity Not on file Sexual Orientation Not on file Last Filed Vital Signs Vital Sign Reading Time Taken Comments Blood Pressure 141/80 07/24/2022 2:02 PM RESERVE OPERATOR Pulse 87 07/24/2022 2:02 PM RESERVE OPERATOR Temperature 24.4 C (76 F) 06/28/2021 10:51 AM RESERVE OPERATOR Respiratory Rate 16 02/09/2021 3:00 PM CDT Oxygen Saturation 98% 02/09/2021 3:00 PM CDT Inhaled Oxygen Concentration - - Weight 84.4 kg (186 lb) 07/24/2022 2:02 PM RESERVE OPERATOR Height 165.1 cm (5' 5) 07/24/2022 2:02 PM RESERVE OPERATOR Body Mass Index 30.95 07/24/2022 2:02 PM RESERVE OPERATOR Plan of Treatment Health Maintenance Due Date Last Done Comments DTAP/TDAP/TD VACCINES (1 - Tdap) 12/01/1971 COLORECTAL SCREENING 1997 Colorectal Cancer Screening 1997 FIT-DNA Q 3 years 1997 FIT/FOBT Q 1 year 1997 Flex Sig/CT Colonography Q 5 years 1997 PNEUMOCOCCAL VACCINE 50+ YEARS (1 of 1 - PCV) 12/01/19 03 ZOSTER VACCINE (1 of 2) 2002 INFLUENZA VACCINE (#1) 2025 COVID-19 Vaccine (2 - season) 02/22/202508/2020 RSV VACCINE (60+ or ) (1 - 1-dose 75+ series) 12/01/2027 Medical Devices Implanted Type Area Financial Services Specialist Device Identifier Shelf Expiration Date Model / Serial / Lot Hemostatic Surgiflo 8ml W/Thrombin 2994 - [id number] Implanted:Qty: 1 on 02/09/2021 by Yosef Ash MD at [facility] Hemostatic N/A: Spine Lumbar [employer] 05/23/2022 [id number] / / [id number] Cervical Hardware Insurance [facility] DUAL COMPLETE HMO [facility] [id number] Care Teams Pals Specialist Relationship Specialty [place] [id number] [address] PCP - General Internal Medicine 03/30/17
[2025-02-23 15:45] LABS: Hematocrit 42.4 % (42.0-52.0); Hemoglobin 14.8 g/dL (14.0-18.0); Immature Granulocyte Percent A 0.1 % (0-0.5); Immature Platelet Fraction Pct 5.5 % (0.9-11.2); Lymphocytes Absolute Auto 1.75 K/mm3 (0.9-3.2); Mean Corpuscular HGB Conc 34.9 g/dl (32-36); Mean Corpuscular Hemoglobin 31.3 pg (26-34); Mean Corpuscular Volume 89.6 fl (80-100); Nucleated Red Blood Cells Absolute Auto 0.000 K/mm3 (0.0-0.012); Nucleated Red Blood Cells Perc 0.0 % (0.0-0.2); Platelet Count Result 143 k/mm3 (150-375); Red Blood Count 4.73 M/mm3 (4.6-6.20); White Blood Count 7.7 K/mm3 (4.5-10.0)
[2025-02-23 16:01] LABS: Alanine Aminotransferase 23 U/L (6-50); Albumin Level 4.5 g/dL (3.5-5.1); Alkaline Phosphatase 68 U/L (38-126); Anion Gap 8 mmol/L (4-12); Aspartate Amino Transferase 27 U/L (17-59); Bilirubin,Total 0.5 mg/dL (0.2-1.3); Blood Urea Nitrogen 16 mg/dL (9-20); Calcium 9.3 mg/dL (8.4-10.2); Carbon Dioxide 27 mmol/L (22-30); Chloride 100 mmol/L (98-107); Estimated Glomerular Filt Rate > 60; Glucose 100 mg/dL (65-110); Potassium 4.4 mmol/L (3.4-5.0); Sodium 135 mmol/L (137-145); Total Protein 7.1 g/dL (6.3-8.2)
[2025-02-23 16:02] LABS: INR 1.0; Prothrombin Time 12.8 Seconds (11.1-14.7)
[2025-02-23 16:03] LABS: Partial Thromboplastin Time 29.4 Seconds (22.3-36.8)
== END 2025-02-23 13:50 | disposition home or self-care (01) ==
LOC: ANHSURGERY 13:52
PROVIDERS: PCP Family Medicine; Visit Provider Urology
DX: C61 Malignant neoplasm of prostate (principal); Z01.818 Encounter for other preprocedural examination
CPT/HCPCS: 36415; 71046; 80053; 85025; 85055; 85610; 85730; 86850; 86900; 86901; 87086

== ENCOUNTER 2025-03-04 00:17 | Day surgery (SDC) | payer MEDICARE, SELFPAY ==
[2025-02-23 14:07] VITALS: BP 127/82; PULSE 80; RESP 16; TEMP 36.8; O2SAT 96; BMI 28.2
--- NOTE | 2025-02-23 14:39 | PC.NURSE ---
Report to the Outpatient Waiting Room, entrance under the green pavilion located off [facility], at time __6:00AM___ on date __03/04/25___. Planned Procedure Time: ___7:30AM___.? Time changes happen often and if your time is changed the preop area will call you the afternoon before. - You and your visitor will be asked to self-screen and do not enter if you have any COVID symptoms. Please call surgeon if you need to reschedule. - A mask is optional within the hospital at this time. Patients may have clear liquids (water, carbonated beverages, clear teas, apple juice) until 3 hours prior to surgery (4:30AM) with a maximum of 20 ounces. - No food from midnight until time of surgery and no smoking, or chewing tobacco (or any form of nicotine). No chewing gum, candy or mints. Take only the following medications with a SIP of water on the morning of surgery: ___METOPROLOL DO NOT STOP ANY OF YOUR OTHER PRESCRIPTION MEDICATIONS PRIOR TO SURGERY EXCEPT THE FOLLOWING Medications to discontinue per physician __HOLD ASPIRIN, NSAIDS(IBUPROFEN), & ALL VITAMINS/SUPPLEMENTS 7 DAYS PRE-OP PER DR RODRIGUEZ Date to take last dose 02/24/25 Please no make-up, nail japanese, hairspray, perfume, deodorant, or body powder the day of surgery.? No jewelry (including any body piercings) or valuables the day of surgery, leave them at home.? Please take a shower or bath the night before, or the morning of, surgery with an antibacterial soap.? Wear comfortable, loose fitting clothing.? - Jewelry must be removed prior to entering the operating room.? Rings and piercings that are not removed may be cut off. - The hospital will not accept responsibility for valuables.? - Please leave all valuables, including medications, at home the day of surgery. If you are going home after surgery, a licensed maintenance truck driver must drive you home.? - NO public transportation without another adult if you receive anesthesia. - We recommend that an adult stay with you for 24 hours following discharge. - We also recommend that you do not drive, make important decision, drink alcoholic beverages, or take any drugs that were not prescribed by your health care provider for at least 24 hours after your discharge time. Follow any additional instructions given to you from your surgeon. Telephone instructions given to ___PATIENT & WIFE and asked if any additional questions and then verbalized understanding. Patient advised to call surgeon office or pre surgery nurse liaison [phone] if any additional questions.
--- NOTE | 2025-02-25 07:15 | PM.IMHP ---
H&P: HPI History of Present Illness Date/Time: 02/25/25 07:15 Chief Complaint: Prostate cancer Narrative: This patient is a 74-year-old male initially seen and evaluated by Dr. Canada 11/2024: ?PSA: 6.0 ?- ?09/03 cores (RLM, LLA, DUSTIN), GGG2 (2), GGG-3 (2) ?- ?NCCN Unfavorable IR ?- ?-PNI/-LENNIE ?- ?Volume: 25gm ?Tejal (prediction of pathology): ?a. ?Lymph node: 2% ?b. ?S.V.: 7% ?c. ?EPE: %24 ?d. ?Organ confined: 67% ?Schaeffer Table (risk of recurrence after RP) ?a. ?10-year: 11% ?b. ?7-year: 9% ?c. ?5-year: 6% ?d. ?3-year: 4% ?mpMRI: 1.2cm lymph node near left SV ?PSMA: uptake only in prostate I have met with the patient and discuss this procedure in detail as well as the potential complications including, but not limited to, adverse cardiopulmonary events, rectal injury, urinary incontinence and erectile dysfunction. He is also aware that there is some potential that this procedure will not completely eradicate his cancer in additional therapy may be Review of Systems Review of Systems: All systems reviewed & are unremarkable except as noted in HPI and below PMFSH Social History Social History Smoking status: Never smoker Alcohol intake: current Drinks per week: 14 Living arrangements: with family Additional living arrangements comments: Spiritual care concerns: No Meds Home Medications and Allergies Home Medications ?Medication ?Instructions ?Recorded ?Confirmed ?Type acetaminophen 500 mg capsule 1,000 mg PO Q6H PRN pain 02/23/25 02/23/25 History amlodipine 5 mg-benazepril 40 mg 1 cap PO QAM 02/23/25 02/23/25 History capsule ascorbate calcium (vitamin C) 500 500 mg PO DAILY 02/23/25 02/23/25 History mg tablet aspirin 81 mg capsule 81 mg PO DAILY 02/23/25 02/23/25 History cholecalciferol (vitamin D3) 50 2,000 unit PO DAILY 02/23/25 02/23/25 History mcg (2,000 unit) capsule coenzyme Q10 100 mg capsule 100 mg PO DAILY 02/23/25 02/23/25 History (CoQ-10) cyanocobalamin (vitamin B-12) 1,000 mcg PO DAILY 02/23/25 02/23/25 History 1,000 mcg capsule ferrous sulfate 325 mg (65 mg 325 mg PO EVERY OTHER DAY 02/23/25 02/23/25 History iron) tablet finasteride 5 mg tablet 5 mg PO DAILY 02/23/25 02/23/25 History folic acid 1 mg tablet 1 mg PO DAILY 02/23/25 02/23/25 History ibuprofen 200 mg tablet (IBU-200) 400 mg PO Q6H PRN pain 02/23/25 02/23/25 History metoprolol succinate 25 mg 25 mg PO QAM 02/23/25 02/23/25 History tablet,extended release 24 hr rosuvastatin 20 mg tablet 20 mg PO HS 02/23/25 02/23/25 History tamsulosin 0.4 mg capsule 0.4 mg PO HS 02/23/25 02/23/25 History Allergies Allergy/AdvReac Type Severity Reaction Status Date / Time No Known Allergies Allergy Unverified 02/23/25 13:56 Exam Const: General: no acute distress Resp: Effort & Inspection: normal respiratory effort GI: Inspection: non-distended GI Palp: No abdominal tenderness and No Guarding due to palpation present (GI) Auscultation: normal bowel sounds Assessment and Plan Assessment and plan (1) Prostate cancer: Code(s): C61 - Malignant neoplasm of prostate Status: Acute Assessment and Plan: Robotic assisted radical prostatectomy with bilateral pelvic lymphadenectomy
[2025-03-04] VITALS (12 sets, daily range): BP systolic 88–144; BP diastolic 45–76; PULSE 62–105; RESP 10–20; TEMP 35.6–36.7; O2SAT 94–100; BMI 27.3
--- OUTSIDE RECORDS SUMMARY | 2025-03-04 00:19 | XMS_ITS | Encounter Summary ---
Author Organization [facility] - [facility] Address [facility]ly [facility] [place] [address] Care Team Providers Care One Piece Expansion Maker Hand Name Role Phone Ender Griffith MD Unavailable [phone] Luciana Bran MD Primary Care Provider [phone] Pan Miller MD Unavailable Encounter Details Date Type Department Care Team (Late st Contact Info) Description 02/27/2025 MyChart Message Enc [facility] Radiation Oncology [address] [place] [address] [place] [address] Pan Miller MD [address] [place] [address] Prostate cancer Social History Tobacco Use Types Packs/Day Years [...] 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 [address] [address] 01/28/2026 10:15 AM CDT [facility] [address] [place] [phone] Ender Griffith MD [address] [phone] documented as of this encounter Visit Diagnoses Not on filedocumented in this encounter Additional Health Concerns Assessment Noted Time PHQ-9 Depression Total Score: 0 04/05/20 7:30 AM CDT documented as of this encounter Care Teams One Piece Expansion Maker Hand Relationship Specialty [place] [address] [facility]. [address] [address] PCP - General FAMILY PRACTICE 03/08/22 Ender Griffith MD [facility]. [facility] [address] [place], [place] [phone] [employer] CARDIOVASCULAR DISEASE 01/22/17 Pan Miller MD 1 [place], [place] [id number] Consulting Physician RADIATION ONCOLOGY 01/15/25 documented as of this encounter
--- OUTSIDE RECORDS SUMMARY | 2025-03-04 00:19 | XMS_ITS | Encounter Summary ---
Author Organization [facility] Address [facility] [place] [address] Care Team Providers Care Geographic Analyst Name Role Phone Preeti Self MD Primary Care Provider [phone] Ender Griffith MD Unavailable [phone] Luciana Bran MD Primary Care Provider [phone] Pan Miller MD Unavailable Encounter Details Date Type Department Care Team (Late st Contact Info) Description 11/15/2020 MyChart Message Enc [facility] Wound Clinic [facility] [address] [place] [address] [place] [address] [place] [address] RE: Other Social History Tobacco [...] 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 Not [...] Description 10/11/2025 11:20 AM CDT Office Visit [facility] Group Family & Internal Medicine - [place] [address] [place] [phone] [place] [address] [facility] [address] [place] [address] 01/28/2026 10:15 AM CDT Office Visit [facility] [address] [place] [address] Ender Griffith MD [address] [address] documented as of this encounter Visit Diagnoses Not on filedocumented in this encounter Care Teams Geographic Analyst Relationship Specialty Start Date End Date Preeti Self MD PCP - General INTERNAL MEDICINE 11/23/15 03/07/22 [place] [address] [facility]. [address] [place] [phone] PCP - General FAMILY PRACTICE 03/08/22 Ender Griffith MD [facility] [address] [place] [address] [place] Animal Rides Manager CARDIOVASCULAR DISEASE 01/22/17 Pan Miller MD 1 [place] [address] Consulting Physician RADIATION ONCOLOGY 01/15/25 documented as of this encounter
--- OUTSIDE RECORDS SUMMARY | 2025-03-04 00:19 | XMS_ITS | Encounter Summary ---
Author Organization [facility] - [facility] Address [facility] [place] [address] Care Team Providers Care Senior Telecommunications Engineer Name Role Phone Preeti Self MD Primary Care Provider [phone] Ender Griffith MD Unavailable [phone] Luciana Bran MD Primary Care Provider [phone] Pan Miller MD Unavailable Encounter Details Date Type Department Care Team (Late st Contact Info) Description 07/02/2020 MyChart Message Enc [facility] Family & Internal Medicine 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. [address] [place] [address] 01/28/2026 10:15 AM CDT Office Visit [facility] [address] [place] [phone] Ender Griffith MD [facility]. [address] [address] documented as of this encounter Visit Diagnoses Not on filedocumented in this encounter Additional Health Concerns Infection Onset Date Last Indicated Resolved Time COVID-19 Rule Out 09/30/2020 09/30/2020 10/01/2020 1:31 PM CDT COVID-19 Rule Out 10/28/2020 10/28/2020 10/30/2020 5:40 PM CDT documented as of this encounter Care Teams Senior Telecommunications Engineer Relationship Specialty Start Date End Date Preeti Self MD PCP - General INTERNAL MEDICINE 11/23/15 03/07/22 [place] [address] [facility] [place]. [address] [place] [address] PCP - General FAMILY PRACTICE 03/08/22 Ender Griffith MD [facility]. [facility] [address] [place] [address] [place] [employer] Tree Contractor CARDIOVASCULAR DISEASE 01/22/17 Pan Miller MD 1 [place] [address] Consulting Physician RADIATION ONCOLOGY 01/15/25 documented as of this encounter
--- OUTSIDE RECORDS SUMMARY | 2025-03-04 00:19 | XMS_ITS | Encounter Summary ---
Author Organization [facility] Address [address] [place] [address] Care Team Providers Care Pocket Setter Lockstitch Name Role Phone Preeti Self MD Primary Care Provider [phone] Ender Griffith MD Unavailable [phone] Luciana Bran MD Primary Care Provider [phone] Pan Miller MD Unavailable Encounter Details Date Type Department Care Team (Late st Contact Info) Description 10/21/2020 Prep for Procedure [facility] [address] [place] [address] Dipak Rios MD [address] [facility] [address] [place] [address] Social History [...] 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 Family & Internal Medicine - [place] [address] [place] [address] [place] [address] [facility]. [address] [address] 01/28/2026 10:15 AM CDT Office [facility] [address] [place] [address] Ender Griffith MD [address] [address] documented as of this encounter Results * PRE-SURGICAL/PRE-PROCEDURE CORONAVIRUS (COVID 19) (10/28/2020 7:41 AM CDT) CORONAVIRUS SARS COV 2 PCR (RESP) NOT DETECTED NOT DETECTED 10/30/2020 5:40 PM CDT [facility] Comment: A Not Detected (negative) test result [...] providers and patients using the following websites: https://www.[email or web address].SimpleGeo/home/Covid-19/HCP/NAAT/fact-sheet2 https://www.[facility].SimpleGeo/home/Covid-19/Patients/NAAT/ fact-sheet2 This test has been authorized by the FDA under an Emergency Use Authorization (EUA) for use by authorized laboratories. Due to the current public health emergency, [facility] is receiving a high volume of samples [...] about COVID-19 can be found at the [facility] website: www.[employer].SimpleGeo/Covid19. Test performed at [facility] [place] [address] [place] [address] Director: TIANA PANCHAL DO,MPH FIRST TEST NO 10/28/2020 7:37 AM CDT [facility] EMPLOYED IN HEALTHCARE NO 10/28/2020 7:37 AM CDT [facility] SYMPTOMATIC DEFINED BY CDC NO 10/28/2020 7:37 AM CDT [facility] DATE OF SYMPTOM ONSET UNKNOWN 10/28/2020 8:07 AM CDT [facility] HOSPITALIZATION STATUS NO 10/28/2020 7:37 AM CDT [facility] PATIENT IN ICU NO 10/28/2020 7:37 AM CDT [facility] RESIDENT OF CONGREGATE CARE NO 10/28/2020 7:37 AM CDT [facility] NO 10/28/2020 8:07 AM CDT [facility] PATIENT'S RACE WHITE OR 10/28/2020 7:37 AM CDT [facility] ETHNICITY NONHISPANIC 10/28/2020 7:37 AM CDT [facility] SOURCE (QST) NASOPHARYNGEAL SWAB 10/28/2020 7:37 AM CDT [facility] NASOPHARYNGEAL SWAB / Unknown 10/28/2020 7:41 AM CDT us Dipak Rios MD MICROBIOLOGY - GENERAL ORDERAB LES Final Result Performing Organization Address City/State/[facility] Co de Phone Number [facility] [address] [place] [address], [employer] [address] documented in this encounter Visit Diagnoses Diagnosis Preop testing- Primary Preoperative examination, unspecified documented in this encounter Additional Health Concerns Infection Onset Date Last Indicated Resolved Time COVID-19 Rule Out 10/28/2020 10/28/2020 10/30/2020 5:40 PM CDT documented as of this encounter Care Teams Pocket Setter Lockstitch Relationship Specialty Start Date End Date Preeti Self MD PCP - General INTERNAL MEDICINE 11/23/15 03/07/22 [place] [address] [address] [place] [address] PCP - General FAMILY PRACTICE 03/08/22 Ender Griffith MD [facility]. [facility] [address] [place] [address] [employer] Aid CARDIOVASCULAR DISEASE 01/22/17 Pan Miller MD 1 [place] [address] Consulting Physician RADIATION ONCOLOGY 01/15/25 documented as of this encounter
--- OUTSIDE RECORDS SUMMARY | 2025-03-04 00:19 | XMS_ITS | Encounter Summary ---
Author Organization [facility] - [facility] Address [facility] [place] [address] Care Team Providers Care Motion Picture Film Examiner Name Role Phone Ender Griffith MD Unavailable [phone] Luciana Bran MD Primary Care Provider [phone] Pan Miller MD Unavailable Encounter Details Date Type Department Care Team (Late st Contact Info) Description 06/25/2024 [employer] Message Enc [facility] Family & Internal Medicine [address] [address] [facility] Provider specialist Social History Tobacco Use Types [...] 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 [address] [place] [address] 01/28/2026 10:15 AM CDT Office [facility] [address] [place] [address] En[facility] MD [facility]. [address] [address] documented as of this encounter Visit Diagnoses Not on filedocumented in this encounter Additional Health Concerns Assessment Noted Time PHQ-9 Depression Total Score: 0 04/05/20 7:30 AM CDT documented as of this encounter Care Teams Motion Picture Film Examiner Relationship Specialty [place] [address] [facility]. [address] [address] PCP - General FAMILY PRACTICE 03/08/22 Ender Griffith MD [facility]. [address] [address] [place] Carpenter Rough CARDIOVASCULAR DISEASE 01/22/17 Pan Miller MD [address] [place] [address] Consulting Physician RADIATION ONCOLOGY 01/15/25 documented as of this encounter
--- OUTSIDE RECORDS SUMMARY | 2025-03-04 00:19 | XMS_ITS | Encounter Summary ---
Author Organization [facility] Address [facility] [place] [address] Care Team Providers Care Manager Asset Name Role Phone Ender Griffith MD Unavailable [phone] Luciana Bran MD Primary Care Provider [phone] Pan Miller MD Unavailable Encounter Details Date Type Department Care Team (Latest Contact Info) Description 01/06/2025 [employer] Message [facility] [address] [place] [phone] Rin Silva PA [address] [facility], [address] [place] [address] EKG test results Social History Tobacco Use [...] 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 [address] [place] [phone] 01/28/2026 10:15 AM CDT Office Visit [place] [facility] [address] [place] [address] Ender Griffith MD [address] [address] documented as of this encounter Visit Diagnoses Not on filedocumented in this encounter Additional Health Concerns Assessment Noted Time PHQ-9 Depression Total Score: 0 04/05/20 22 7:30 AM CDT documented as of this encounter Care Teams Manager Asset Relationship Specialty [place] [address] [facility]. [address] [place] [phone] PCP - General FAMILY PRACTICE 03/08/22 Ender Griffith MD [facility]. [facility] [address] [place], [place] [address] [place] Senior Clinical Research Scientist CARDIOVASCULAR DISEASE 01/22/17 Pan Miller MD 1 [place] [address] Consulting Physician RADIATION ONCOLOGY 01/15/25 documented as of this encounter
--- OUTSIDE RECORDS SUMMARY | 2025-03-04 00:19 | XMS_ITS | Encounter Summary ---
Author Organization [facility] Address [facility], [address] [place] [address] Care Team Providers Care Pipe Stem Repairer Name Role Phone Preeti Self MD Primary Care Provider [phone] Ender Griffith MD Unavailable [phone] Luciana Bran MD Primary Care Provider [phone] Pan Miller MD Unavailable Encounter Details Date Type Department Care Team (Late st Contact Info) Description 09/23/2020 MyChart Message Enc [facility] Wound Clinic [place] [address] [place] [address] [place] [address] [place] [address] Question Social History Tobacco Use [...] 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 [address] [place] [address] 01/28/2026 10:15 AM CDT Office Visit [facility] [address] [place] [address] Ender Griffith MD [facility]. [address] [address] documented as of this encounter Visit Diagnoses Not on filedocumented in this encounter Additional Health Concerns Infection Onset Date Last Indicated Resolved Time COVID-19 Rule Out 09/30/2020 09/30/2020 10/01/2020 1:31 PM CDT COVID-19 Rule Out 10/28/2020 10/28/2020 10/30/2020 5:40 PM CDT documented as of this encounter Care Teams Pipe Stem Repairer Relationship Specialty Start Date End Date Preeti Self MD PCP - General INTERNAL MEDICINE 11/23/15 03/07/22 [place] [address] [facility]. [address] [place] [phone] PCP - General FAMILY PRACTICE 03/08/22 Ender Griffith MD [facility]. [facility] [address] [place] [address] [place] Supervisor Treating And Pumping CARDIOVASCULAR DISEASE 01/22/17 Pan Miller MD 1 [place], [place] [id number] Consulting Physician RADIATION ONCOLOGY 01/15/25 documented as of this encounter
--- OUTSIDE RECORDS SUMMARY | 2025-03-04 00:19 | XMS_ITS | Encounter Summary ---
Author Organization [facility] Address [address] [place] [address] Care Team Providers Care Dry Transfer Worker Name Role Phone Preeti Self MD Primary Care Provider [phone] Ender Griffith MD Unavailable [phone] Luciana Bran MD Primary Care Provider [phone] Pan Miller MD Unavailable Encounter Details Date Type Department Care Team (Late st Contact Info) Description 09/26/2020 Prep for Procedure [facility] Day Services [address] [place] [address] Dipak Rios MD [address] [facility] [address] [place] [address] Social [...] 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 [address] 01/28/2026 10:15 AM CDT [facility] [address] [place] [address] Ender Griffith MD [address] [address] documented as of this encounter Results * PRE-SURGICAL/PRE-PROCEDURE CORONAVIRUS (COVID 19) (09/30/2020 8:03 AM CDT) CORONAVIRUS SARS COV 2 PCR (RESP) NOT DETECTED NOT DETECTED 10/01/2020 1:31 PM CDT [facility] Comment: A Not Detected (negative) test [...] providers and patients using the following websites: https://www.Walk Score.com/home/Covid-19/HCP/Quest[facility]/fact- sheet.html https://www.Walk Score.The Original SoupMan/home/Covid-19/Patients/ QuestIVD/fact-sheet.html This test has been authorized by the FDA under an Emergency Use Authorization (EUA) for use by authorized laboratories. Due to the current public health emergency, [facility] is receiving a high volume of samples [...] about COVID-19 can be found at the [facility] website: www.Activism.com.The Original SoupMan/Covid19. Test performed at [facility] [place] [id number] [place] [id number] Director: TIANA PANCHAL DO,MPH FIRST TEST UNKNOWN 09/30/2020 7:59 AM CDT [facility] EMPLOYED IN HEALTHCARE NO 09/30/2020 7:59 AM CDT [facility] SYMPTOMATIC DEFINED BY CDC UNKNOWN 09/30/2020 7:59 AM CDT [facility] DATE OF SYMPTOM ONSET UNKNOWN 09/30/2020 8:33 AM CDT [facility] HOSPITALIZATION STATUS NO 09/30/2020 7:59 AM CDT [facility] PATIENT IN ICU NO 09/30/2020 7:59 AM CDT [facility] RESIDENT OF CONGREGATE CARE NO 09/30/2020 7:59 AM CDT [facility] NO 09/30/2020 8:33 AM CDT [facility] PATIENT'S RACE WHITE OR 09/30/2020 7:59 AM CDT [facility] ETHNICITY NONHISPANIC 09/30/2020 7:59 AM CDT [facility] SOURCE (QST) NASOPHARYNGEAL SWAB 09/30/2020 7:59 AM CDT [facility] NASOPHARYNGEAL SWAB / Unknown 09/30/2020 8:03 AM CDT us Dipak Rios MD MICROBIOLOGY - GENERAL ORDERAB LES Final Result Performing Organization Address City/State/[facility] Co de Phone Number [facility] [address] [place] [address], [facility] [address] [place] [address], documented in this encounter Visit Diagnoses Diagnosis Preop testing- Primary Preoperative examination, unspecified documented in this encounter Additional Health Concerns Infection Onset Date Last Indicated Resolved Time COVID-19 Rule Out 09/30/2020 09/30/2020 10/01/2020 1:31 PM CDT COVID-19 Rule Out 10/28/2020 10/28/2020 10/30/2020 5:40 PM CDT documented as of this encounter Care Teams Dry Transfer Worker Relationship Specialty Start Date End Date Preeti Self MD PCP - General INTERNAL MEDICINE 11/23/15 03/07/22 [place] [address] [place] [address] PCP - General FAMILY PRACTICE 03/08/22 Ender Griffith MD Three [facility]. [address] [place] [address] Phenix Manager Of Program CARDIOVASCULAR DISEASE 01/22/17 Pan Miller MD 1 [place] [address] Consulting Physician RADIATION ONCOLOGY 01/15/25 documented as of this encounter
--- OUTSIDE RECORDS SUMMARY | 2025-03-04 00:19 | XMS_ITS | Clinical Summary ---
Author Organization [facility] Office Building [address] [place] [address] Care Team Providers Care Final Block Press Operator Name Role Phone Luciana Bran MD Primary Care Provider Allergies No known active allergies Medications acetaminophen [...] on file Legal Sex Male 3:52 PM ETHYLENE COMPRESSOR OPERATOR Gender Identity Male 09/11/2022 8:20 AM CDT [...] 02/22/202502/2021, 09/24/2020 Influenza Vaccine (#1) 2025 Insurance [facility] MEDIC[facility] Address: [facility] [address] [place] [address] [facility] MEDICARE [facility] Address: [address] [address] [facility] MEDIC[facility] Address: [address] [address] Care Teams Final Block Press Operator Relationship Specialty [place] [address] [place] [address] PCP - General Family Medicine 02/04/23
--- OUTSIDE RECORDS SUMMARY | 2025-03-04 00:19 | XMS_ITS | Encounter Summary ---
Author Organization [facility] Address Critical access hospital[address] [place] [address] Care Team Providers Care Spinning Lathe Operator Hydraulic Name Role Phone Ender Griffith MD Unavailable [phone] Luciana Bran MD Primary Care Provider [phone] Pan Miller MD Unavailable Encounter Details Date Type Department Care Team (Late st Contact Info) Description 05/14/2022 Biotherapeutics Message Enc [facility] Medical Group Family & Internal Medicine [address] [address] [facility] Provider blood pressure Social History Tobacco Use [...] 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 No / Unsure 05/15/2022 8:42 AM VOCATIONAL REHAB CONSULTANT documented as of this encounter Plan of Treatment Upcoming Encounters Date Type Department Care Team (Late st Contact Info) Description 10/11/2025 11:20 AM CDT Office Visit [facility] Medical Group Family & Internal Medicine - [place] [address] [place] [phone] [place] [address] [facility]. [address] [place] [address] 01/28/2026 10:15 AM CDT [facility] [address] [place] [address] Ender Griffith MD Three [facility]. [address] [address] documented as of this encounter Visit Diagnoses Not on filedocumented in this encounter Additional Health Concerns Assessment Noted Time PHQ-9 Depression Total Score: 0 04/05/20 7:30 AM CDT documented as of this encounter Care Teams Spinning Lathe Operator Hydraulic Relationship Specialty [place] [address] [facility]. [address] [place] [address] PCP - General FAMILY PRACTICE 03/08/22 Ender Griffith MD Three [facility]. [address] [address] [place] Motor Coach Chauffeur CARDIOVASCULAR DISEASE 01/22/17 Pan Miller MD 1 [place], [place] [id number] Consulting Physician RADIATION ONCOLOGY 01/15/25 documented as of this encounter
--- OUTSIDE RECORDS SUMMARY | 2025-03-04 00:19 | XMS_ITS | Encounter Summary ---
Author Organization [facility] Address [facility] [place] [address] Care Team Providers Care Frame Wirer Name Role Phone Edd De Dios MD Unavailable Unavailable Preeti Self MD Primary Care Provider [phone] Ender Griffith MD Unavailable [phone] Luciana Bran MD Primary Care Provider [phone] Pan Miller MD Unavailable Encounter Details Date Type Department Care Team (Late st Contact Info) Description 04/11/2016 Abstract [facility] AT [address] [address] Sohail Gramajo MA Social History [...] Description 10/11/2025 11:20 AM CDT Office Visit [facility] Medical Group Family & Internal Medicine [place] [phone] [place] [address] [place] [address] [place] [address] 01/28/2026 10:15 AM CDT [facility] [address] [place] [address] Ender Griffith MD Three [facility]. [address] [place] [address] documented as of this encounter Procedures Procedure [...] documented as of this encounter Care Teams Frame Wirer Relationship Specialty Start Date End Date Preeti Self MD PCP - General INTERNAL MEDICINE 11/23/15 03/07/22 [place] [address] [phone] PCP - General FAMILY PRACTICE 03/08/22 Edd De Dios MD [employer] Coffee Shop Attendant CARDIOVASCULAR DISEASE 11/23/15 01/21/17 Ender Griffith MD Three [facility]. [address] [place] [address] [place] Coffee Shop Attendant CARDIOVASCULAR DISEASE 01/22/17 Pan Miller MD 1 [place], [place] [id number] Consulting Physician RADIATION ONCOLOGY 01/15/25 documented as of this encounter
--- OUTSIDE RECORDS SUMMARY | 2025-03-04 00:19 | XMS_ITS | Encounter Summary ---
Author Organization [facility] Address [facility] [place] [address] Care Team Providers Care Product Safety Consultant Name Role Phone Ender Griffith MD Unavailable [phone] Luciana Bran MD Primary Care Provider [phone] Pan Miller MD Unavailable Encounter Details Date Type Department Care Team (Late st Contact Info) Description 07/27/2022 [employer] Technologyt Message Enc [facility] Medical Group Family & Internal Medicine [facility] [address] [place] [address] [place] [address] [place] 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 R AND BOTTOM LACER HAND * JORDI Lau - 07/27/2022 1:[address] Briggs. Thank you R AND BOTTOM LACER HAND * Shirlene Chong RN - 07/27/2022 11:35 AM CST Please advise R AND BOTTOM LACER HAND documented in this encounter Plan of Treatment Upcoming Encounters Date Type Department Care Team (Late st Contact Info) Description 10/11/2025 11:20 AM CDT Office Visit [facility] Medical Group Family & Internal Medicine - [place] [address] [place] [phone] [place] [address] [facility]. [address] [address] 01/28/2026 10:15 AM CDT Office Visit [facility] [address] [place] [address] Ender Griffith MD [address] [address] documented as of this encounter Visit Diagnoses Not on filedocumented in this encounter Additional Health Concerns Assessment Noted Time PHQ-9 Depression Total Score: 0 04/05/20 22 7:30 AM CDT documented as of this encounter Care Teams Product Safety Consultant Relationship Specialty [place] [address] [address] [place] [address] PCP - General FAMILY PRACTICE 03/08/22 Ender Griffith MD Three [facility]. [address] [place] [address] [place] Plumber'S Helper CARDIOVASCULAR DISEASE 01/22/17 Pan Miller MD 1 [place] [address] Consulting Physician RADIATION ONCOLOGY 01/15/25 documented as of this encounter
--- OUTSIDE RECORDS SUMMARY | 2025-03-04 00:19 | XMS_ITS | Encounter Summary ---
Author Organization [facility] Address [facility] [place] [address] Care Team Providers Care Head Cager Name Role Phone Preeti Self MD Primary Care Provider [phone] Ender Griffith MD Unavailable [phone] Luciana Bran MD Primary Care Provider [phone] Pan Miller MD Unavailable Encounter Details Date Type Department Care Team (Late st Contact Info) Description 12/18/2020 [employer]CThe [employer] Message Enc [facility] Medical Group Family & Internal Medicine [facility] [address] [place] [address] Nikki Rockwell APNP [address] [address] RE: Other Social History Tobacco [...] 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 [address] [place] [phone] 01/28/2026 10:15 AM CDT Office Visit [facility] [address] [place] [address] Ender Griffith MD [address] [address] documented as of this encounter Visit Diagnoses Not on filedocumented in this encounter Care Teams Head Cager Relationship Specialty Start Date End Date Preeti Self MD PCP - General INTERNAL MEDICINE 11/23/15 03/07/22 [place] [address] [facility]. [address] [place], [place] [phone] PCP - General FAMILY PRACTICE 03/08/22 Ender Griffith MD [facility] [address] [place] [address] Mathews Generation Technician CARDIOVASCULAR DISEASE 01/22/17 Pan Miller MD 1 [place] [address] Consulting Physician RADIATION ONCOLOGY 01/15/25 documented as of this encounter
--- OUTSIDE RECORDS SUMMARY | 2025-03-04 00:19 | XMS_ITS | Encounter Summary ---
Author Organization [facility] Address [facility] [place] [address] Care Team Providers Care Nursing Scheduler Name Role Phone Preeti Self MD Primary Care Provider [phone] Ender Griffith MD Unavailable [phone] Luciana Bran MD Primary Care Provider [phone] Pan Miller MD Unavailable Encounter Details Date Type Department Care Team (Late st Contact Info) Description 12/08/2018 ARC CUTTER PLASMA ARC ONLY [facility] Medical Group Priority Care - Donnie Padgett [address] [place] [address] Scanned, Documents Social History Tobacco [...] 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 12/17/2018 01:01 P KELSEA/CRISTINA JOB NO: [id number] DOC NO: [id number] 12/08/2018 12/09/2018 12:24 P CC: documented in this encounter Plan of Treatment Upcoming Encounters Date Type Department Care Team (Late st Contact Info) Description 10/11/2025 11:20 AM CDT Office Visit [facility] Medical Group Family & Internal Medicine [address] [address] [place] [address] [place] [address] 01/28/2026 10:15 AM CDT Office Visit [facility] [address] [place] [address] Ender Griffith MD Three [facility]. [address] [place] [address] documented as of this encounter Visit Diagnoses Not on filedocumented in this encounter Additional Health Concerns Infection Onset Date Last Indicated Resolved Time COVID-19 Rule Out 09/30/2020 09/30/2020 10/01/2020 1:31 PM CDT COVID-19 Rule Out 10/28/2020 10/28/2020 10/30/2020 5:40 PM CDT documented as of this encounter Care Teams Nursing Scheduler Relationship Specialty Start Date End Date Preeti Self MD PCP - General INTERNAL MEDICINE 11/23/15 03/07/22 [place] [address] [address] [place] [address] PCP - General FAMILY PRACTICE 03/08/22 Ender Griffith MD Three [facility]. [address] [place] [address] [place] Lead Trainer CARDIOVASCULAR DISEASE 01/22/17 Pan Miller MD 1 [place] [address] Consulting Physician RADIATION ONCOLOGY 01/15/25 documented as of this encounter
--- OUTSIDE RECORDS SUMMARY | 2025-03-04 00:19 | XMS_ITS | Clinical Summary ---
Author Organization [facility] Address [address] [place] [address] Care Team Providers Care Mrp Controller Name Role Phone Preeti Self MD Primary Care Provider [phone] Allergies No known active allergies Medications rosuvastatin [...] mg tabletIndicatio ns:Lumbar stenosis with neurogenic claudication,Ac reno-sparks post-operative pain Take 1-2 Tablets by mouth every 4 hours as needed for Pain, Severe. Max Daily Amount: 12 Tablets 42 Tablet 02/09/2021 Active vitamin B complex Capsule Take 1 Tablet by mouth daily. Active Active Problems Problem Noted Date Diagnosed Date Lumbar stenosis 02/09/2021 Immunizations Immunization Administration Dates Next Due (KLEL) COVID-19 VACCINE - EMERGENCY USE AUTHORIZATION, AD26,COV2S(PF) [...] on file Legal Sex Male 4:35 AM CREATIVE STRATEGIST Gender Identity Not on file Sexual Orientation Not on file Last Filed Vital Signs Vital Sign Reading Time Taken Comments Blood Pressure 141/80 07/24/2022 2:02 PM CREATIVE STRATEGIST Pulse 87 07/24/2022 2:02 PM CREATIVE STRATEGIST Temperature 24.4 C (76 F) 06/28/2021 10:51 AM CREATIVE STRATEGIST Respiratory Rate 16 02/09/2021 3:00 PM CDT Oxygen Saturation 98% 02/09/2021 3:00 PM CDT Inhaled Oxygen Concentration - - Weight 84.4 kg (186 lb) 07/24/2022 2:02 PM CREATIVE STRATEGIST Height 165.1 cm (5' 5) 07/24/2022 2:02 PM CREATIVE STRATEGIST Body Mass Index 30.95 07/24/2022 2:02 PM CREATIVE STRATEGIST Plan of Treatment Health Maintenance Due Date [...] series) 12/01/2027 Medical Devices Implanted Type Area Intelligence Clerk Device Identifier Shelf Expiration Date Model / Serial / Lot Hemostatic Surgiflo 8ml W/Thrombin 2994 - [id number] Implanted:Qty: 1 on 02/09/2021 by Yosef Ash MD at [facility] Hemostatic N/A: Spine Lumbar [employer] 05/23/2022 [id number] / / [id number] Cervical Hardware Insurance [facility] DUAL COMPLETE HMO [facility] [id number] Care Teams Mrp Controller Relationship Specialty [place] [address] [address] PCP - General Internal Medicine 03/30/17
--- OUTSIDE RECORDS SUMMARY | 2025-03-04 00:19 | XMS_ITS | Encounter Summary ---
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 [address] [place] [address] 01/28/2026 10:15 AM CDT [facility] [address] [place] [address] Ender Griffith MD Three [facility]. [address] [phone] documented as of this encounter Procedures Procedure Name Priority Date/Time Associated Diagnosis Comments IMAGE GENERIC 02/23/2025 documented in this encounter Results * IMAGE GENERIC (02/23/2025) Anatomical Region Laterality Modality Other 02/23/2025 us Doc Med Group Scanned SCANNING Final Resu lt documented in this encounter Visit Diagnoses Not on filedocumented in this encounter Additional Health Concerns Assessment Noted Time PHQ-9 Depression Total Score: 0 04/05/20 7:30 AM CDT documented as of this encounter Care Teams Recovery Analyst Relationship Specialty [place] [address] [facility] [place] [address] PCP - General FAMILY PRACTICE 03/08/22 Ender Griffith MD Three [facility]. [address] [address] [place] Casting Plug Assembler CARDIOVASCULAR DISEASE 01/22/17 Pan Miller MD 1 [place] [address] Consulting Physician RADIATION ONCOLOGY 01/15/25 documented as of this encounter
--- OUTSIDE RECORDS SUMMARY | 2025-03-04 00:19 | XMS_ITS | Encounter Summary ---
Author Organization [facility] Address [facility] [place] [address] Care Team Providers Care Photonics Engineering Technologist Name Role Phone Ender Griffith MD Unavailable [phone] Luciana Bran MD Primary Care Provider [phone] Pan Miller MD Unavailable Encounter Details Date Type Department Care Team (Late st Contact Info) Description 10/13/2024 MyChart Message Enc [facility] Medical Group Family & Internal Medicine [facility] [address] [place] [address] Luciana Bran MD [address] [place] 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 [address] [place] [address] 01/28/2026 10:15 AM CDT [facility] [address] [place] [address] Ender Griffith MD Three [facility]. [address] [phone] documented as of this encounter Visit Diagnoses Not on filedocumented in this encounter Additional Health Concerns Assessment Noted Time PHQ-9 Depression Total Score: 0 04/05/20 7:30 AM CDT documented as of this encounter Care Teams Photonics Engineering Technologist Relationship Specialty Start [place] [address] [facility]. [address] [place] [address] PCP - General FAMILY PRACTICE 03/08/22 Ender Griffith MD Three [facility]. [address] [place], [place] [phone] Myah Edi Manager CARDIOVASCULAR DISEASE 01/22/17 Pan Miller MD 1 [place], [place] [phone] Consulting Physician RADIATION ONCOLOGY 01/15/25 documented as of this encounter
--- OUTSIDE RECORDS SUMMARY | 2025-03-04 00:20 | XMS_ITS | Encounter Summary ---
Author Organization [facility] Address [facility] [place] [address] Care Team Providers Care Building Admin Name Role Phone Preeti Self MD Primary Care Provider [phone] Ender Griffith MD Unavailable [phone] Luciana Bran MD Primary Care Provider [phone] Pan Miller MD Unavailable Encounter Details Date Type Department Care Team (Late st Contact Info) Description 09/24/2017 Abstract [facility] at [address] [address] Sohail Gramajo MA Social History [...] Description 10/11/2025 11:20 AM CDT Office Visit [facility] Medical Group Family & Internal Medicine [address] [address] [place] [address] [place] [address] 01/28/2026 10:15 AM CDT [facility] [address] [place] [address] Ender Griffith MD [facility]. [address] [place] [address] documented as of this encounter Procedures Procedure [...] documented as of this encounter Care Teams Building Admin Relationship Specialty Start Date End Date Preeti Self MD PCP - General INTERNAL MEDICINE 11/23/15 03/07/22 [place] [address] [address] [place] [address] PCP - General FAMILY PRACTICE 03/08/22 Ender Griffith MD [facility]. [address] [place] [address] Fanwood Software Applications Architect CARDIOVASCULAR DISEASE 01/22/17 Pan Miller MD 1 [place] [address] Consulting Physician RADIATION ONCOLOGY 01/15/25 documented as of this encounter
--- OUTSIDE RECORDS SUMMARY | 2025-03-04 00:20 | XMS_ITS | Clinical Summary ---
Author Organization [facility] Address [address], [facility] 1 [place] [address] Phone Care Team Providers Care Green Chainer Name Role Phone Luciana Bran MD Primary Care Provider [phone] Gavin Galindo MD Unavailable [phone] Allergies No known active allergies Medications acetaminophen [...] on file Legal Sex Male 2:03 PM LACEWORKER Gender Identity Not on file Sexual Orientation [...] Office Visit [facility] [address] [address] Gavin Galindo MD [address] [place] [address] Health Maintenance Due Date Last Done [...] to complete this topic Insurance MEDICARE C [facility] Care Teams Green Chainer Relationship Specialty [place] [address] [facility] [place] [address] PCP - General Family Medicine 06/26/24 Gavin Galindo MD [address] [place], [place] [address] Consulting Physician Oncology 06/26/24
--- OUTSIDE RECORDS SUMMARY | 2025-03-04 00:20 | XMS_ITS | Encounter Summary ---
Author Organization [facility] Address [facility] [place] [address] Care Team Providers Care Ward Maid Name Role Phone Preeti Self MD Primary Care Provider [phone] Ender Griffith MD Unavailable [phone] Luciana Bran MD Primary Care Provider [phone] Pan Miller MD Unavailable Encounter Details Date Type Department Care Team (Late st Contact Info) Description 08/23/2021 MyCGATHER & SAVEt Message Enc [facility] Medical Group Family & Internal Medicine [address] [address] Maribel Lin, [employer] SPANISH TEACHER New script Social History Tobacco Use Types [...] 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 No / Unsure 08/22/2021 9:46 AM [employer] documented as of this encounter Plan of Treatment Upcoming Encounters Date Type Department Care Team (Late st Contact Info) Description 10/11/2025 11:20 AM CDT Office Visit [facility] Medical Group Family & Internal Medicine - [place] [address] [place] [address] [place] [address] [facility] [address] [place] [phone] 01/28/2026 10:15 AM CDT [facility] [address] [place] [address] Ender Griffith MD [facility]. [address] [address] documented as of this encounter Visit Diagnoses Not on filedocumented in this encounter Additional Health Concerns Assessment Noted Time PHQ-9 Depression Total Score: 4 08/23/19 22 9:55 AM [employer]IDENT [employer] documented as of this encounter Care Teams Ward Maid Relationship Specialty Start Date End Date Preeti Self MD PCP - General INTERNAL MEDICINE 11/23/15 03/07/22 [place] [address] [facility]. [address] [place] [phone] PCP - General FAMILY PRACTICE 03/08/22 Ender Griffith MD [facility]. [address] [place] [address] Duson Lithographer Apprentice CARDIOVASCULAR DISEASE 01/22/17 Pan Miller MD 1 [place] [address] Consulting Physician RADIATION ONCOLOGY 01/15/25 documented as of this encounter
--- OUTSIDE RECORDS SUMMARY | 2025-03-04 00:20 | XMS_ITS | Encounter Summary ---
Author Organization [facility] Address [facility] [place] [address] Care Team Providers Care Sales Solutions Associate Name Role Phone Ender Griffith MD Unavailable [phone] Luciana Bran MD Primary Care Provider [phone] Pan Miller MD Unavailable Encounter Details Date Type Department Care Team (Late st Contact Info) Description 03/08/2022 MyChart Message Enc [facility] Family & Internal Medicine [facility] [address] [place] [address] Luciana Bran MD [address] [place] [address]. 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 [address] [place] [phone] 01/28/2026 10:15 AM CDT [facility] [address] [place] [phone] Ender Griffith MD [address] [address] documented as of this encounter Visit Diagnoses Not on filedocumented in this encounter Additional Health Concerns Assessment Noted Time PHQ-9 Depression Total Score: 4 08/23/19 9:55 AM HELP DESK SUPERVISOR documented as of this encounter Care Teams Sales Solutions Associate Relationship Specialty [place] [address] [facility]. [address] [place] [phone] PCP - General FAMILY PRACTICE 03/08/22 Ender Griffith MD [facility]. [facility] [address] [place], [place] [address] Saline Payment Specialist CARDIOVASCULAR DISEASE 01/22/17 Pan Miller MD 1 [place] [address] Consulting Physician RADIATION ONCOLOGY 01/15/25 documented as of this encounter
--- OUTSIDE RECORDS SUMMARY | 2025-03-04 00:20 | XMS_ITS | Encounter Summary ---
Author Organization [facility] Address [facility] [place] [address] Care Team Providers Care Home Designer Name Role Phone Preeti Self MD Primary Care Provider [phone] Ender Griffith MD Unavailable [phone] Luciana Bran MD Primary Care Provider [phone] Pan Miller MD Unavailable Encounter Details Date Type Department Care Team (Late st Contact Info) Description 08/05/2019 MyChart Message Enc [facility] Medical Group Urology Special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 [address] [place] [address] 01/28/2026 10:15 AM CDT [facility] [address] [place] [phone] Ender Griffith MD [facility]. [address] [address] documented as of this encounter Visit Diagnoses Not on filedocumented in this encounter Additional Health Concerns Infection Onset Date Last Indicated Resolved Time COVID-19 Rule Out 09/30/2020 09/30/2020 10/01/2020 1:31 PM CDT COVID-19 Rule Out 10/28/2020 10/28/2020 10/30/2020 5:40 PM CDT documented as of this encounter Care Teams Home Designer Relationship Specialty Start Date End Date Preeti Self MD PCP - General INTERNAL MEDICINE 11/23/15 03/07/22 [place] [address] [facility]. [address] [place] [address] PCP - General FAMILY PRACTICE 03/08/22 Ender Griffith MD [facility]. [facility] [address] [place] [address] [place] Manager Retail Store CARDIOVASCULAR DISEASE 01/22/17 Pan Miller MD 1 [place] [address] Consulting Physician RADIATION ONCOLOGY 01/15/25 documented as of this encounter
--- OUTSIDE RECORDS SUMMARY | 2025-03-04 00:20 | XMS_ITS | Clinical Summary ---
Author Organization [facility] Address [address] [place] [address] Care Team Providers Care Service Or Work Dispatcher Name Role Phone Ender Griffith MD Unavailable [phone] Luciana Bran MD Primary Care Provider [phone] Pan Miller MD Unavailable Allergies No known active allergies Medications aspirin 81 MG tablet Take 1 tablet (81 mg total) by mouth daily. 10/07/2015 Active Cholecalciferol (VITAMIN D) 50 MCG (1999 UT) Tab Active coenzyme Q-10 100 MG capsule Take 1 capsule (100 mg total) by mouth daily. Active Ascorbic Acid (VITAMIN C OR) Activ e FINASTERIDE 5 MG tabletIndication s:Benign prostatic hyperplasia with urinary obstruction TAKE 1 TABLET BY MOUTH DAILY 100 tablet 2 12/13/2021 Active tamsulosin (FLOMAX) 0.4 MG CapIndications:B enign prostatic hyperplasia with urinary obstruction TAKE 1 CAPSULE BY MOUTH DAILY 100 capsule 2 06/19/2022 Active B Complex Vitamins Cap Take 1 tablet by mouth daily. Active amLODIPine Besy-Benazepril HCl 5-40 MG Cap TAKE 1 CAPSULE BY MOUTH DAILY 100 capsule 01/04/2025 Active metoprolol succinate ER (TOPROL-XL) 25 MG 24 hr tabletIndication s:Sinus tachycardia TAKE 1 TABLET BY MOUTH ONCE DAILY 100 tablet 01/04/2025 Active rosuvastatin (CRESTOR) 20 MG tablet TAKE 1 TABLET BY MOUTH AT BEDTIME 100 tablet 01/04/2025 Active ferrous sulfate, 65 mg elemental, 325 (65 FE) MG tablet Take 1 tablet (325 mg total) by mouth every other day. 11/09/2024 Active folic acid (FOLVITE) 1 MG tablet Take 1 tablet (1 mg total) by mouth daily. 11/13/2024 Active Active Problems Problem Noted Date Diagnosed Date Left inguinal hernia 2024 Hx of laminectomy 04/05/2022 Myelomalacia of cervical cord (CMS/HCC HHS/HCC) 04/05/2022 Bilateral hip joint arthritis 04/05/2022 Screen for colon cancer 06/12/2021 Overview (06/12/2021): Added automatically from request for surgery [id number] Age-related cataract of both eyes, unspecified age-related [...] Neuropathy 11/01/2015 Atherosclerotic heart diseas e of [place] coronary artery without angina pectoris Assessment & [...] nature. History of cervical spine fusion in 2009. Recommend stress test evaluation in the future [...] Diagnosed Date Resolved Date Pre-operative clearance 09/12/2020 03/02/2021 PAD (peripheral artery disease) 11/06/2016 Encounters Date Type Department Care Team Description 02/27/2025 AlienVaultt Message Enc [facility] Radiation Oncology [address] [place] [address] [place] [address] Pan Miller MD Prostate cancer 02/23/2025 Scan Onefeat INFO SRVCS Scanned, Doc Med Group Image (SCAN) 02/02/2025 Telephone [facility] Radiation Oncology [address] [place] [address] [place] [address] Pan Miller MD Results 01/28/2025 2:00 PM CDT Office Visit [facility] General Surgery [address], [address] [place] [address] Rashaad Rubio MD Inguinal Hernia (FU left inguinal hernia repair 01/07/25) 01/28/2025 Travel 01/22/2025 10:30 AM CDT Office Visit [facility] [phone] Rin Silva PA Coronary Artery Disease 01/22/2025 Travel 01/15/2025 9:14 AM CDT - 01/15/2025 11:59 PM CDT Hospital Encounter [facility] Radiation Oncology [address] [facility] [address] [place] [address] Pan Miller MD Consult Discharge Disposition: Home or Self Care (Routine Discharge) 01/14/2025 3:15 PM CDT Office Visit [facility] Medical Group General Surgery [address], [address] [place] [address] Rashaad Rubio MD Postop Followup (Left inguinal hernia repair 01/07/25- sore and bruised) 01/14/2025 Scan Onefeat INFO SRVCS Scanned, Doc Med Group 01/14/2025 Travel 01/07/2025 8:30 AM CDT - 01/07/2025 10:[address] [facility] [address] [place] [address] Rashaad Rubio MD HERNIORRHAPHY INGUINAL- open repair with mesh 01/07/2025 8:15 AM CDT Anesthesia Event [address] [address] Sherri Green, Barber Whitfield CRNA 01/07/2025 6:57 AM CDT - 01/07/2025 11:58 AM CDT Hospital Encounter [address] [address] Rashaad Rubio MD Discharge Disposition: Home or Self Care (Routine Discharge) 01/07/2025 Travel 01/06/2025 MyChart [facility] [address] Rin Silva PA EKG test results 01/05/2025 6:45 AM CDT - 01/05/2025 11:59 PM CDT Hospital Encounter [facility] Cardiopulmonary Services [address] [place] [address] Lory Obrien MD Discharge Disposition: Home or Self Care (Routine Discharge) 01/05/2025 6:44 AM CDT Hospital Encounter [facility] [address] [place] [address] Rashaad Rubio MD Discharge Disposition: Home or Self Care (Routine Discharge) 01/05/2025 Travel 12/30/2024 Telephone [facility] Radiation Oncology [address] [place] [address] Pan Miller MD Appointment Request 12/30/2024 Orders Only [facility] [place] [address] Gavin Galindo MD 12/28/[address] [facility] [address] [place] [address] Ender Griffith MD Surgical Clearance (Requesting clearance for pts Inguinal Hernia surgery with Dr Rubio on 01/07 at [facility]. 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 Not on file Not on file Last Filed Vital Signs Vital Sign Reading Time Taken Comments Blood Pressure 109/71 01/28/2025 1:54 PM CDT Pulse 76 01/28/2025 1:54 PM CDT Temperature 36.9 C (98.5 F) 01/28/2025 1:54 PM CDT Respiratory Rate 20 01/28/2025 1:54 PM CDT Oxygen Saturation 98% 01/28/2025 1:54 PM CDT Inhaled Oxygen Concentration - - Weight 76.7 kg (169 lb) 01/22/2025 10:19 AM CDT Height 165.1 cm (5' 5) 01/22/2025 10:19 AM CDT Body Mass Index 28.12 01/22/2025 10:19 AM CDT Plan of Treatment Upcoming Encounters Date Type Department Care Team (Late st Contact Info) Description 10/11/2025 11:20 AM CDT Office Visit [facility] Medical Group Family & Internal Medicine - [place] [address] [place] [address] [place] [address] [facility]. [address] [place] [address] 01/28/2026 10:15 AM CDT [facility] [address] [place] [address] Ender Griffith MD [address] [address] Health Maintenance Due Date Last Done Comments Hepatitis C 1970 DTaP, Tdap and Td Vaccines ( 1 - Tdap) 12/01/1971 Pneumococcal Vaccine: 50+ Years (1 of 2 - PCV) 12/01/1971 RSV Immunization or 60+ Years (1 - Risk 60-74 years 1-dose series) 2012 Annual Medicare Wellness Visit 08/23/2022 08/22/2021 COVID-19 Vaccine (3 - 2024-2 6 season) 2025 06/01/2021, 09/24/2020 Colorectal Cancer Screening Colonoscopy (10 Years) 06/20/2026 06/20/2021, 10/22/2011, Zoster Vaccines (1 of 2) 12/06/2026 Pos tponed from 2002 (Patient Refused) Colorectal Cancer Screening FIT/FOBT (1 Year) Discontinued 03/16/2021 PHQ-2 (Physician [place]) Completed 10/09/2024 Meningococcal B Vaccine Aged Out No l onger eligible based on patient's age to complete this topic Meningococcal Vaccine Aged Out No aga kimberly eligible based on patient's age to complete this topic RSV Immunizations Under 20 Months Aged Out No longer eligible b ased on patient's age to complete this topic Medical Devices Implanted Type Area Vegetable Buncher Device Identifier Shelf Expiration Date Model / Serial / Lot Iol Mora Symfony Toric [id number] - [id number] Implanted:Qty: 1 on 10/03/2020 by Dipak Rios MD at [facility] Lens Left: Eye JERZY 04/18/2023 [id number] / [id number] / Iol Mora Symfony Toric [id number] - [id number] Implanted:Qty: 1 on 10/31/2020 by Dipak Rios MD at [facility] Lens Right: Eye JERZY 03/07/2022 [id number] / [id number] / Plug Large Light Mesh - [id number] Implanted:Qty: 1 on 01/07/2025 by Rashaad Rubio MD at [facility] Mesh Left: Abdomen [employer] - DIV C R [employer] [id number] 03/21/2029 [id number] / / [id number] On-Q Antimicrobial Expansion Kits With Silversoaker Antimicrobial Catheter Implanted:Qty: 1 on 01/07/2025 by Rashaad Rubio MD at [facility] Left: Abdomen [employer] [id number] 04/05/2027 [id number] / / [id number] Procedures Procedure Name Priority Date/Time Associated Diagnosis Comments IMAGE GENERIC 02/23/2025 REPAIR ING HERNIA,5+Y/O,REDUCI BL 01/07/2025 8:15 AM CDT Left inguinal hernia Case Notes C ECG 12-LEAD Routine 01/05/2025 6:56 AM CDT Pre-op testing MRSA SCREENING Routine 01/05/2025 6:48 AM CDT Preoperative clearance COLONOSCOPY GENERIC (SCAN ORDER) 06/20/2021 FECAL BLOOD OCCULT (SCAN ORDER) Routine 03/16/2021 from Last 3 Months or Most Recently Relevant to Health Maintenance Results * IMAGE GENERIC (02/23/2025) Anatomical Region Laterality Modality Other 02/23/2025 us Doc Med Group Scanned SCANNING Final Resu lt * ECG 12-Lead (01/05/2025 6:56 AM CDT) 01/05/2025 6:56 AM CDT Narrative [facility] RAD - 01/06/2025 6:36 AM CDT [facility] Test Date: 2025-01-05 Pat Name: FAUSTINO GENTILE Department: 85 Room: Gender: Male Worm Raiser: : 1950 Requested By: LORY OBRIEN Order Number: [id number] Reading MD: Kristopher Almazan Measurements Intervals [place] Rate: 73 P: 57 MS: 226 QRS: 67 QRSD: 89 T: 3 QT: 359 QTc: 397 Interpretive Statements SINUS RHYTHM WITH FIRST DEGREE AV BLOCK NONSPECIFIC T-WAVE ABNORMALITY Compared to ECG 08/10/2022 20:14:18 T-wave abnormality now present Procedure Note Kristopher Almazan MD - 01/06/2025 [facility] Test Date: 2025-01-05 Pat Name: FAUSTINO GENTILE Department: 85 Room: Gender: Male Worm 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: : 1950 Requested By: LORY OBRIEN Order Number: [id number] Reading MD: Kristopher Almazan Measurements Intervals [place] Rate: 73 P: 57 MS: 226 QRS: 67 QRSD: 89 T: 3 QT: 359 QTc: 397 Interpretive Statements SINUS RHYTHM WITH FIRST DEGREE AV BLOCK NONSPECIFIC T-WAVE ABNORMALITY Compared to ECG 08/10/2022 20:14:18 T-wave abnormality now present us Lory Obrien MD ECG ORDERABLES Final Result Performing Organization Address City/State/[facility] Co de Phone Number [facility] * MRSA SCREENING (01/05/2025 6:48 AM CDT) SPEC DESCRIPTION NASAL 01/05/2025 6:47 AM CDT [facility] SPECIAL REQUESTS NO SPECIAL REQUEST 01/05/2025 6:47 AM CDT [facility] CULTURE RESULT NO METHICILLIN RESISTANT STAPHYLOCOCCUS AUREUS ISOLATED 01/06/2025 11:34 AM CDT [facility] SPECIMEN FROM INTERNAL NOSE / Unknown 01/05/2025 6:48 AM CDT 01/05/2025 6:49 AM CDT us Rashaad Rubio MD MICROBIOLOGY - GENERAL ORDERABLE S Final Result [facility] [address] [facility] [place] [address], [place] [phone] [facility] [address] [place] [address], [place] [phone] * COLONOSCOPY GENERIC (06/20/2021) 06/20/2021 Narrative 06/20/2021 Ordered by an unspecified provider. us Documents Scanned SCANNING Final Result * FECAL BLOOD OCCULT (03/16/2021) FECAL OCCULT BLOOD NEGATIVE [facility] 03/16/2021 us Documents Scanned SCANNING Final Result Performing Organization Address City/State/[facility] Co de Phone Number [facility] from Last 3 Months or Most Recently Relevant to Health Maintenance Insurance Advance Directives Documents on File Type Date Recorded Patient Customer Care Representative Expl anation Advance Directives and Living Will 06/20/2021 12:00 AM ADVANCED DIRECTIVES Care Teams Service Or Work Dispatcher Relationship Specialty [place] [address] [facility]. [address] [place] [phone] PCP - General FAMILY PRACTICE 03/08/22 Ender Griffith MD Three [facility]. [address] [place] [address] [place] Time Study Analyst CARDIOVASCULAR DISEASE 01/22/17 Pan Miller MD 1 [place] [address] Consulting Physician RADIATION ONCOLOGY 01/15/25
--- OUTSIDE RECORDS SUMMARY | 2025-03-04 00:20 | XMS_ITS | Encounter Summary ---
Author Organization [facility] Address [facility] [place] [address] Care Team Providers Care Music Specialist Name Role Phone Ender Griffith MD Unavailable [phone] Luciana Bran MD Primary Care Provider [phone] Pan Miller MD Unavailable Encounter Details Date Type Department Care Team (Late st Contact Info) Description 03/28/[address] 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 Family & Internal Medicine - [place] [id number] [place] [address] [place] [address] [facility] [place] [address] 01/28/2026 10:15 AM CDT Office [facility] [address] [place] [phone] Ender Griffith MD [facility]. [address] [address] documented as of this encounter Visit Diagnoses Not on filedocumented in this encounter Additional Health Concerns Assessment Noted Time PHQ-9 Depression Total Score: 4 08/23/19 22 9:55 AM [employer] COMMUNICATIONS SERGEANT documented as of this encounter Care Teams Music Specialist Relationship Specialty [place] [address] [address] [place] [address] PCP - General FAMILY PRACTICE 03/08/22 Ender Griffith MD Three [facility]. [address] [place] [address] [place] [employer] Department Supervisor CARDIOVASCULAR DISEASE 01/22/17 Pan Miller MD [address] [place] [address] Consulting Physician RADIATION ONCOLOGY 01/15/25 documented as of this encounter
--- OUTSIDE RECORDS SUMMARY | 2025-03-04 00:20 | XMS_ITS | Encounter Summary ---
Author Organization [facility] Address [facility] [place] [address] Care Team Providers Care Carpenter Helper Name Role Phone Preeti Self MD Primary Care Provider [phone] Ender Griffith MD Unavailable [phone] Luciana Bran MD Primary Care Provider [phone] Pan Miller MD Unavailable Encounter Details Date Type Department Care Team (Late st Contact Info) Description 11/28/2021 MyChart Message Enc [facility] Medical Group Family & Internal Medicine [facility] [address] [place] [address] [place] [address] [place] [address] [address] 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 Not on file Not [...] Description 10/11/2025 11:20 AM CDT Office Visit [facility] Medical Group Family & Internal Medicine [facility] [address] [place] [address] [place] [address] [facility] [address] [place] [address] 01/28/2026 10:15 AM CDT Office Visit [facility] [address] [place] [phone] Ender Griffith MD [address] [address] documented as of this encounter Visit Diagnoses Not on filedocumented in this encounter Additional Health Concerns Assessment Noted Time PHQ-9 Depression Total Score: 4 08/23/19 22 9:55 AM AUDIT SPECIALIST documented as of this encounter Care Teams Carpenter Helper Relationship Specialty Start Date End Date Preeti Self MD PCP - General INTERNAL MEDICINE 11/23/15 03/07/22 [place] [address] [facility] [place] [address] PCP - General FAMILY PRACTICE 03/08/22 Ender Griffith MD Three [facility]. [facility] [address] [place], [place] [id number] [employer]over CARDIOVASCULAR DISEASE 01/22/17 Pan Miller MD 1 [place], [place] [id number] Consulting Physician RADIATION ONCOLOGY 01/15/25 documented as of this encounter
--- NOTE | 2025-03-04 06:01 | WPDHPUPDATE1 ---
History and Physical Update Update Date/Time: 03/04/25 06:01 History and Physical has been reviewed, including an updated exam of the patient. There are NO changes in the patient's condition. Risks, benefits, and alternatives have been discussed and questions answered. Patient agrees to proceed with procedure.
--- NOTE | 2025-03-04 07:06 | WPDANESEPPF ---
Anes - Initial Pre Proc Eval Procedure: Operation Date: 03/04/25 07:30 Proposed Procedures p Robotic Assisted Laparoscopic Prostatectomy, Possible Bilateral Lymph Node Dissection - Jonathan Briggs MD Date/Time: 03/04/25 07:06 Surgeon: Jonathan Briggs MD Pre Op Diagnosis: Prostate Ca Patient Data Age: 74 Gender: M Height: 1.65 m Weight: 77 kg Last Vital Signs Temp 36.8 C 02/23/25 14:07 Pulse 80 02/23/25 14:07 Resp 16 02/23/25 14:07 BP 127/82 02/23/25 14:07 Pulse Ox 96 02/23/25 14:07 O2 Del Method Room Air 02/23/25 14:07 Allergies Allergy/AdvReac Type Severity Reaction Status Date / Time No Known Allergies Allergy Unverified 02/23/25 13:56 Home Medications ?Medication ?Instructions ?Recorded ?Confirmed ?Type acetaminophen 500 mg capsule 1,000 mg PO Q6H PRN pain 02/23/25 02/23/25 History amlodipine 5 mg-benazepril 40 mg 1 cap PO QAM 02/23/25 02/23/25 History capsule ascorbate calcium (vitamin C) 500 500 mg PO DAILY 02/23/25 02/23/25 History mg tablet aspirin 81 mg capsule 81 mg PO DAILY 02/23/25 02/23/25 History cholecalciferol (vitamin D3) 50 2,000 unit PO DAILY 02/23/25 02/23/25 History mcg (2,000 unit) capsule coenzyme Q10 100 mg capsule 100 mg PO DAILY 02/23/25 02/23/25 History (CoQ-10) cyanocobalamin (vitamin B-12) 1,000 mcg PO DAILY 02/23/25 02/23/25 History 1,000 mcg capsule ferrous sulfate 325 mg (65 mg 325 mg PO EVERY OTHER DAY 02/23/25 02/23/25 History iron) tablet finasteride 5 mg tablet 5 mg PO DAILY 02/23/25 02/23/25 History folic acid 1 mg tablet 1 mg PO DAILY 02/23/25 02/23/25 History ibuprofen 200 mg tablet (IBU-200) 400 mg PO Q6H PRN pain 02/23/25 02/23/25 History metoprolol succinate 25 mg 25 mg PO QAM 02/23/25 02/23/25 History tablet,extended release 24 hr rosuvastatin 20 mg tablet 20 mg PO HS 02/23/25 02/23/25 History tamsulosin 0.4 mg capsule 0.4 mg PO HS 02/23/25 02/23/25 History Patient hx anesthesia problems: none Family hx anesthesia problems: none Results Review: All pre-operative results and documents have been reviewed as part of the pre-operative evaluation. [facility] Past Medical History Medical History (Updated 03/04/25 @ 07:06 by Edd Madrid MD) Prostate cancer CAD (coronary artery disease) Surgical History Surgical History (Updated 03/04/25 @ 07:06 by Edd Madrid MD) Hx of CABG Social History Social History Smoking status: Never smoker Alcohol intake: current Drinks per week: 14 Living arrangements: with family Additional living arrangements comments: Spiritual care concerns: No Anes - Eval Final PreProcedure Day of Procedure 03/04/25 07:06 Patient weight: overweight Heart: regular rate and rhythm Lungs: clear to auscultation Airway: Mallampati scale class II Neurological: alert and oriented Last oral intake: >/= 8 hours ASA classification: III Emergent: no Anesthetic plan: proceed Anesthesia type and monitoring: general ETT and standard monitoring Results Review: All pre-operative results and documents have been reviewed as part of the pre-operative evaluation. Informed Consent: The patient's anesthetic plan and its attendant risks and benefits were discussed with the patient/family/POA. Questions were solicited and answers provided to the satisfaction of the patient/family/POA.
[2025-03-04] MEDS: ceFAZolin 2 GM in SODIUM CHLORIDE 0.9% IV 50 ML 100 ML IVPB (07:30)
[2025-03-04] MEDS: LACTATED RINGERS 1,000 ML 30 ML IV CONT ×3 (07:30→11:28)
--- NOTE | 2025-03-04 09:35 | S_PTH ---
PATIENT: Faustino Gentile LOC: [facility] U#:[id number] AGE/SX: 74/M ROOM: RE03/04/[address]: Jonathan Briggs MD : 1950 BED: DIS: 03/05/2025 SPEC #: [id number] RECD: 03/04/25 11:30 STATUS: MARILYN RE #: [id number] ANGELIKA: 03/04/25 09:[address]: Jonathan Briggs DEPT: [facility] Surgical RECD BY: Terri Feldman ENTERED: 03/04/25 11:31 SP TYPE: Surgical OTHR DR: Luciana BranMD Tissues: A - Lymph Node B - Lymph Node C - Prostate Procedures: Hematoxylin and Eosin Stain Gross and Microscopic Level 4 Gross and Microscopic Level 6 PIN 4 Prostate Triple Stain
--- NOTE | 2025-03-04 10:40 | W.PM.PROC2 ---
Procedure Note - Detailed Date of Procedure 03/04/25 Pre-op Diagnosis Prostate Ca Post-op Diagnosis Same Procedure Performed Robotic assisted radical prostatectomy, pelvic lymphadenectomy Surgeon Jonathan Briggs MD Anesthesia General Description of Procedure The patient was brought to the operative suite, where he was prepped and draped in routine sterile fashion while in a dorsal lithotomy, deep Trendelenburg position. A supraumbilical 10 mm trocar was placed after insufflation of the abdomen with a Veress needle. Three robotic ports were then placed under direct vision. Two of these were placed in the right lower quadrant - 10 cm and 20 cm lateral to, and in line with, the umbilicus. A third robotic trocar was placed 10 cm to the left of the umbilicus, and 20 cm to the left of the umbilicus, a 12 mm standard laparoscopic trocar was placed to be used as an dental assistant instructor port. Lastly, a 5 mm trocar was placed in the left upper quadrant midway between the umbilicus and the left robotic trocar. Attention was then turned to the prostatectomy. I opted for a posterior approach in this patient. An incision was made in the parietal peritoneum along the posterior bladder/posterior prostate about 2 cm above the reflection of the peritoneum over the anterior rectum. The seminal vesicles and vas deferens were immediately identified. Dissection is undertaken in a fashion so as to avoid electrocautery as much as possible, particularly near the tips of the seminal vesicles. Dissection was also carried out in the midline so as to avoid any encounters with the ureters. The vas deferens and the seminal vesicles were dissected in their entirety to the base of the prostate. The plane anterior to Denoviller's fascia, anterior to the rectum and posterior to the prostate was then developed. I then dropped the bladder by incising the anterior parietal peritoneum just lateral to the median umbilical ligaments bilaterally. The bladder was dropped from the anterior abdominal and pelvic wall. The endopelvic fascia was identified and incised bilaterally, allowing for dissection of the posterior-lateral aspect of the prostate. The puboprostatic ligaments were transected near their origin from the posterior pubic ramus. This posterior lateral dissection of the prostate is also undertaken in a fashion so as to avoid electrocautery as much as possible. The dorsal vein of the penis is then secured with an 0 -Vicryl ligature. Attention is then turned to the bladder neck. The anterior bladder neck is incised at the vesico-prostatic junction. The previously placed urethral catheter was drawn through the urethrotomy. A very small bladder neck was maintained throughout the remainder of this dissection. The posterior bladder neck was incised in a fashion so as to avoid any injury to the ureteral orifices. Again, the small aperture of the bladder neck was maintained. The previously dissected vas deferens and the seminal vesicles were brought through the posterior bladder neck incision. The lateral prostatic pedicles were then carefully dissected from the lateral aspect of the prostate bilaterally. The prostatic pedicles were secured with Weck clips and transected. The neurovascular bundles were carefully dissected from the posterior-lateral aspect of the prostate. The dorsal vein of the penis was incised with electrocautery. Using cold scissors, the urethra was incised. After withdrawing the previously placed urethral catheter, the posterior urethra was sharply incised, as was the rectalurethralis muscle. Attention was then turned to an extended bilateral pelvic lymphadenectomy. The limits of this dissection were similar bilaterally. Specifically, the limits were the bifurcation of the common iliac vein proximally, the Konrad's ligament distally, the pevic floor posteriorly. the pelvic sidewall laterally and the anterior aspect to the external iliac artery laterally. This dissection was undertaken with care to avoid any injury to the obturator nerve. The prostate, seminal vesicles and pelvic nodes were then placed in a specimen bag. The pelvis was copiously irrigated with saline. Urethrovesical anastomosis was then undertaken using similar two 3-0 V-lock sutures across a 20-Vietnamese urethral catheter. The catheter was irrigated, and there was found to be no evidence of an irrigant extravasation. I opted not to place a pelvic drain. The robot is undocked, and the trocars were removed. The specimen was removed through the supraumbilical incision. The anterior rectus fascia at that suprapubic site was closed with a looped 0-PDS. Subcutaneous tissue was irrigated. Skin incisions were closed with 4-0 Vicryl subcuticular. Blood loss throughout this was 100cc. The patient tolerated the procedure well, was taken to recovery room in good condition. Drains No Packing No Pathology None sent Complications No immediate complications
[2025-03-04] MEDS: fentaNYL CITRATE INJ (*CRX) 100 MCG/2 ML VIAL 25 MCG IV PUSH ×3 (10:49→11:43)
--- NOTE | 2025-03-04 12:13 | ADMGEN ---
This patient, Faustino Gentile, was admitted to [facility] Surg Room 321-02. Patient/family oriented to hospital policies and general routines including ID bracelet, bed and alarms, visiting hours, pain management, procedures, bathroom and other care routines, personal items, smoking policy, room service/diet, and visiting hours. Information on how to activate the Rapid Response Team has been discussed. Patient/Family are encouraged to report perceived risks to care and to ask questions if they do not understand what they are told or what they should do.
[2025-03-04] MEDS: LACTATED RINGERS 1,000 ML 125 ML IV CONT ×2 (12:27→21:40)
[2025-03-04] MEDS: HYDROcodone/acetaminophen (*CRX) 5-325 MG TABLET 2 TAB PO ×2 (13:25→21:35)
[2025-03-04] MEDS: ONDANSETRON INJ 4 MG/2 ML VIAL IV PUSH (13:47)
[2025-03-04] MEDS: ROSUVASTATIN 20 MG TABLET PO (21:15)
[2025-03-05 01:27] VITALS: BP 111/62; PULSE 89; RESP 20; TEMP 36.4; O2SAT 94
[2025-03-05 05:03] VITALS: BP 136/64; PULSE 79; RESP 20; TEMP 36.3; O2SAT 95
[2025-03-05] MEDS: KETOROLAC 15 MG/ML VIAL (*BKC) IV PUSH (05:26)
[2025-03-05] MEDS: LACTATED RINGERS 1,000 ML 125 ML IV CONT (05:29)
--- NOTE | 2025-03-05 06:24 | P.PNUR_ITS ---
Progress Note: A&P Assessment and Plan (1) Prostate cancer: Code(s): C61 - Malignant neoplasm of prostate Status: Acute Assessment and Plan: * Doing well POD #1 * Increase diet/ambulation this morning * Anticipate discharge this afternoon Subjective Subjective Date/Time Seen: 03/05/25 06:24 Interval history: Comfortable overnight Review of Systems Review of Systems: All systems reviewed & are unremarkable except as noted in HPI and below Exam Const: General: no acute distress Resp: Effort & Inspection: normal respiratory effort GI: Inspection: non-distended GI Palp: No abdominal tenderness and No Guarding due to palpation present (GI) Auscultation: normal bowel sounds Urinary Catheter: Urinary Catheter: patent and draining and urine clear Objective Data Vital Signs Vital Signs: Vital Signs - 24 hr 03/04/25 07:25 03/04/25 10:37 03/04/25 10:50 Temperature 97.3 F L 97.0 F L Pulse Rate 80 78 76 Respiratory Rate 10 L 18 Blood Pressure 123/76 88/48 L 144/76 H Pulse Oximetry 99 100 100 Oxygen Delivery Room Air Simple Face Mask Simple Face Mask Oxygen Flow Rate 10 10 03/04/25 11:05 03/04/25 11:20 03/04/25 11:35 Temperature Pulse Rate 84 87 89 Respiratory Rate 18 18 18 Blood Pressure 116/63 115/63 113/51 L Pulse Oximetry 100 98 95 Oxygen Delivery Simple Face Mask Room Air Room Air Oxygen Flow Rate 10 03/04/25 11:50 03/04/25 12:15 03/04/25 12:37 Temperature 96.1 F L Pulse Rate 91 89 Respiratory Rate 16 16 Blood Pressure 108/45 L 101/71 Pulse Oximetry 95 97 Oxygen Delivery Room Air Room Air Oxygen Flow Rate 03/04/25 12:45 03/04/25 13:45 03/04/25 17:45 Temperature 96.4 F L 97 F L 98 F Pulse Rate 100 62 105 H Respiratory Rate 16 16 16 Blood Pressure 106/62 109/63 120/62 Pulse Oximetry 100 100 94 Oxygen Delivery Oxygen Flow Rate 03/04/25 20:00 03/04/25 21:44 03/05/25 01:27 Temperature 98.0 F 97.5 F L Pulse Rate 97 89 Respiratory Rate 20 20 Blood Pressure 139/64 111/62 Pulse Oximetry 96 94 Oxygen Delivery Room Air Oxygen Flow Rate 03/05/25 05:03 Temperature 97.4 F L Pulse Rate 79 Respiratory Rate 20 Blood Pressure 136/64 Pulse Oximetry 95 Oxygen Delivery Oxygen Flow Rate Intake/Output Intake/Output: Intake & Output 03/02/25 03/03/25 03/04/25 03/05/25 23:59 23:59 23:59 23:59 Intake Total 1989 1427.1 Output Total 50 1500 Balance 1940 -72.9 Meds/Results Medications: Active Medications Generic Name Dose Route Start Last Admin Trade Name Freq PRN Reason Stop Dose Admin Hydrocodone Bitart/Acetaminophen 2 tab 03/04/25 12:00 03/04/25 21:35 Hydrocodone/Acetaminophen (*Crx) 5-325 Mg Tablet PO 2 tab Q6H PRN Administration Pain Rated 6 or Greater Amlodipine Besylate 5 mg 03/05/25 09:00 Amlodipine Besylate 5 Mg Tablet BY MOUTH QAM [facility] Folic Acid 1 mg 03/05/25 09:00 Folic Acid 1 Mg Tablet PO DAILY [facility] Hyoscyamine 0.125 mg 03/04/25 12:00 Hyoscyamine Sulfate 0.125 Mg Tablet SUBLINGUAL Q4H PRN Bladder Spasm Lactated Ringer's 1,000 mls @ 125 mls/hr 03/04/25 12:00 03/05/25 05:29 Lr - Lactated Ringers Iv IV CONT 125 mls/hr .Q8H YASEMIN Administration Ketorolac Tromethamine 15 mg 03/04/25 12:00 03/05/25 05:26 Ketorolac 15 Mg/Ml Vial (*Bkc) IV PUSH 03/05/25 11:59 15 mg Q6H PRN Administration Pain Rated 4-6 Levofloxacin 500 mg 03/05/25 09:00 Levofloxacin 500 Mg Tablet PO DAILY [facility] Lisinopril 40 mg 03/05/25 09:00 Lisinopril 20 Mg Tablet PO QAM [facility] Metoprolol Succinate 25 mg 03/05/25 09:00 Metoprolol Succinate Ext Rel 25 Mg Tabcr PO QAM [facility] Naloxone HCl 0.1 mg 03/04/25 12:00 Naloxone Hcl 0.4 Mg/Ml Vial IV PUSH Q2M PRN Opiate Reversal Ondansetron HCl 4 mg 03/04/25 13:35 03/04/25 13:47 Ondansetron Inj 4 Mg/2 Ml Vial IV PUSH 4 mg Q4H PRN Administration Nausea And Vomiting Rosuvastatin Calcium 20 mg 03/04/25 21:00 03/04/25 21:15 Rosuvastatin 20 Mg Tablet PO 20 mg HS YASEMIN Administration
[2025-03-05 06:47] LABS: Hematocrit 31.6 % (42.0-52.0); Hemoglobin 10.8 g/dL (14.0-18.0)
[2025-03-05 07:11] LABS: Anion Gap 4 mmol/L (4-12); Blood Urea Nitrogen 9 mg/dL (9-20); Calcium 7.9 mg/dL (8.4-10.2); Carbon Dioxide 29 mmol/L (22-30); Chloride 101 mmol/L (98-107); Estimated CRCL calculation 68 ml/min; Estimated Glomerular Filt Rate > 60; Glucose 104 mg/dL (65-110); Potassium 3.9 mmol/L (3.4-5.0); Sodium 134 mmol/L (137-145)
[2025-03-05 09:34] VITALS: PULSE 79
[2025-03-05] MEDS: METOPROLOL SUCCINATE EXT REL 25 MG TABCR PO (09:34)
[2025-03-05] MEDS: FOLIC ACID 1 MG TABLET PO (09:34)
[2025-03-05 09:45] VITALS: BP 125/67; PULSE 83; RESP 18; TEMP 36.6; O2SAT 97
--- NOTE | 2025-03-05 12:01 | P.DS_ITS ---
DS: Admitting Diagnosis Discharge Date 03/05/2025 Admitting Diagnosis Prostate cancer DS: Summary Hospital Course Hospital Course: This patient was admitted on the morning of his planned robotic prostatectomy. This procedure was uneventful, as was his postoperative course. By the evening of the procedure he was sitting at the bedside in tolerating a liquid diet. The following morning he was ambulating freely and tolerating regular food. His catheter drainage remained essentially clear throughout. His postoperative hemoglobin and serum creatinine were unremarkable. At the time of discharge he has been instructed in appropriate care for his Sorto catheter with both a leg bag and bedside bag. He will be discharged with plans to follow-up in 1 week with a cystogram. Time Spent with Patient Time attestation: Total time spent providing and/or coordinating discharge services: DS: Data Data Completed and Pending Pending studies at discharge: Pending at discharge 03/04/25 09:35 Surgical [PTH] Routine Surgical [PTH] Routine Surgical [PTH] Routine Labs on day of discharge: Labs from last 24 hours 03/05/25 06:35 Hgb 10.8 L D Hct 31.6 L Sodium 134 L Potassium 3.9 Chloride 101 Carbon Dioxide 29 Anion Gap 4 BUN 9 D Creatinine 0.74 Estim Creat Clear Calc 68 Estimated GFR > 60 Glucose 104 Calcium 7.9 L Discharge Plan Discharge Patient Disposition: Home Discharge Instructions: 1) Sorto catheter -> leg bag / bedside bag at night. 2) No lifting/straining >15lbs. x3 weeks. 3) No driving x1-week. 4) Resume normal, pre-operative diet. 5) My office will contact regarding follow-up in 1-week with cystogram. Patient Language: Hungarian Stand Alone Forms: General Discharge Instructions Discharge Orders: Discharge Order (Routine); Ordered 03/05/25 Ordered By: Jonathan Briggs Discharge Medications: New ciprofloxacin HCl 500 mg tablet 500 mg PO Q12H Qty: 10 0RF docusate sodium [Colace] 100 mg capsule 100 mg PO DAILY Qty: 30 0RF hydrocodone-acetaminophen 5-325 mg tablet 1 - 2 tablet PO Q6H PRN (Reason: pain) Qty: 20 0RF hyoscyamine sulfate 0.125 mg tablet 0.125 mg PO Q6H PRN (Reason: bladder spasms) Qty: 20 2RF Continued acetaminophen 500 mg capsule 1,000 mg PO Q6H PRN (Reason: pain) folic acid 1 mg tablet 1 mg PO DAILY metoprolol succinate 25 mg tablet extended release 24 hr 25 mg PO QAM rosuvastatin 20 mg tablet 20 mg PO HS amlodipine-benazepril 5-40 mg capsule 1 cap PO QAM cyanocobalamin (vitamin B-12) 1,000 mcg capsule 1,000 mcg PO DAILY cholecalciferol (vitamin D3) 50 mcg (2,000 unit) capsule 2,000 unit PO DAILY ibuprofen [IBU-200] 200 mg tablet 400 mg PO Q6H PRN (Reason: pain) Held ferrous sulfate 325 mg (65 mg iron) tablet 325 mg PO EVERY OTHER DAY Hold Instructions: Resume on 03/08/25. coenzyme Q10 [CoQ-10] 100 mg capsule 100 mg PO DAILY Hold Instructions: Resume on 03/08/25. ascorbate calcium (vitamin C) 500 mg tablet 500 mg PO DAILY Hold Instructions: Resume on 03/08/25. aspirin 81 mg capsule 81 mg PO DAILY Hold Instructions: Resume on 03/08/25. Discontinued tamsulosin 0.4 mg capsule 0.4 mg PO HS finasteride 5 mg tablet 5 mg PO DAILY
[2025-03-05 13:45] VITALS: BP 117/59; PULSE 94; RESP 18; TEMP 36.3; O2SAT 98
== END 2025-03-05 13:50 | disposition home or self-care (01) ==
LOC: ANHSURGERY 06:08 → ANH3MEDSUR 12:03
PROVIDERS: PCP Family Medicine; Visit Provider Urology
PROC: 0VT04ZZ Resection of Prostate, Percutaneous Endoscopic Approach (ICD-10-PCS; CPT 55867; principal; 2025-03-04 07:30)
DX: C61 Malignant neoplasm of prostate (principal)
CPT/HCPCS: 55866; 38571; S2900; 36415; 80048; 85014; 85018; 88305; 88309; 88344; J0690; A9270; J1885; J2003; J2250; J2405; J2704; J3010; J7030; J7120; Q9968

== ENCOUNTER 2025-03-12 11:50 | Outpatient (CLI) | payer MEDICARE, SELFPAY ==
--- NOTE | ~2025-03-12 | XR_ITS ---
EXAMINATION: CYSTOGRAM DATE: 03/12/2025 12:36 INDICATION: Prostate cancer TECHNIQUE: Initial rubber belt splicer radiograph of the pelvis was performed. There was retrograde administration of Omnipaque 350 mixed with saline contrast into patient's existing Sorto catheter. Fluoroscopic images of the pelvis were obtained. A post-void image was also performed. Fluoroscopy exposure time was 0.5 minutes. A total of 2 overhead radiographs and 16 fluoroscopic images were recorded. Total DAP was 14.8 Gycm^2. FINDINGS: V-shaped configuration of the base of the bladder consistent with prior prostatectomy. Bladder appears otherwise normal. Extraluminal extension of a negligible amount of contrast at the left posterior margin of the vesicourethral anastomosis. IMPRESSION: Tiny leak with minimal extraluminal extension of contrast at the left posterior margin of the anastomosis. Reviewed, dictated and finalized at location A.
--- OUTSIDE RECORDS SUMMARY | 2025-03-12 11:54 | XMS_ITS | Encounter Summary ---
Author Organization [facility] Address [facility] [place] [address] Care Team Providers Care Care Director Rn Name Role Phone Preeti Self MD Primary Care Provider [phone] Ender Griffith MD Unavailable [phone] Luciana Bran MD Primary Care Provider [phone] Pan Miller MD Unavailable Encounter Details Date Type Department Care Team (Late st Contact Info) Description 11/28/2021 MyChart Message Enc [facility] Medical Group Family & Internal Medicine [facility] [address] [place] [address] [place] [id number] [place] [address] [address] 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 Not on file Not [...] Description 10/11/2025 11:20 AM CDT Office Visit [facility] Medical Group Family & Internal Medicine [facility] [address] [place] [address] [place] [address] [facility] [address] [place] [address] 01/28/2026 10:15 AM CDT Office Visit [facility] [address] [place] [phone] Ender Griffith MD [address] [address] documented as of this encounter Visit Diagnoses Not on filedocumented in this encounter Additional Health Concerns Assessment Noted Time PHQ-9 Depression Total Score: 4 08/23/19 22 9:55 AM REHAB LIAISON documented as of this encounter Care Teams Care Director Rn Relationship Specialty Start Date End Date Preeti Self MD PCP - General INTERNAL MEDICINE 11/23/15 03/07/22 [place] [address] [facility] [place] [address] PCP - General FAMILY PRACTICE 03/08/22 Ender Griffith MD Three [facility]. [facility] [address] [place], [place] [id number] [employer] CARDIOVASCULAR DISEASE 01/22/17 Pan Miller MD [address] [place], [place] [id number] Consulting Physician RADIATION ONCOLOGY 01/15/25 documented as of this encounter
--- OUTSIDE RECORDS SUMMARY | 2025-03-12 11:54 | XMS_ITS | Encounter Summary ---
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 [address] 01/28/2026 10:15 AM CDT [facility] [address] [place] [address] Ender Griffith MD [address] [address] documented as of this encounter Results * PRE-SURGICAL/PRE-PROCEDURE CORONAVIRUS (COVID 19) (09/30/2020 8:03 AM CDT) CORONAVIRUS SARS COV 2 PCR (RESP) NOT DETECTED NOT DETECTED 10/01/2020 1:[address] [facility] Comment: A Not Detected (negative) test result [...] providers and patients using the following websites: https://www.GreenSand.com/home/Covid-19/HCP/QuestIVD/fact- sheet.html https://www.GreenSand.Book'n'Bloom/home/Covid-19/Patients/ QuestIVD/fact-sheet.html This test has been authorized by the FDA under an Emergency Use Authorization (EUA) for use by authorized laboratories. Due to the current public health emergency, [employer] is receiving a high volume of samples [...] about COVID-19 can be found at the [employer] website: www.Odoo (formerly OpenERP).Book'n'Bloom/Covid19. Test performed at [facility] [place] [id number] [place] [id number] Director: TIANA PANCHAL DO,MPH FIRST TEST UNKNOWN 09/30/2020 7:59 AM CDT [facility] EMPLOYED IN HEALTHCARE NO 09/30/2020 7:59 AM CDT [facility] SYMPTOMATIC DEFINED BY CDC UNKNOWN 09/30/2020 7:59 AM CDT [facility] DATE OF SYMPTOM ONSET UNKNOWN 09/30/2020 8:33 AM CDT [facility] HOSPITALIZATION STATUS NO 09/30/2020 7:59 AM CDT [facility] PATIENT IN ICU NO 09/30/2020 7:59 AM CDT [facility] RESIDENT OF CONGREGATE CARE NO 09/30/2020 7:59 AM CDT [facility] NO 09/30/2020 8:33 AM CDT [facility] PATIENT'S RACE WHITE OR 09/30/2020 7:59 AM CDT [facility] ETHNICITY NONHISPANIC 09/30/2020 7:59 AM CDT [facility] SOURCE (QST) NASOPHARYNGEAL SWAB 09/30/2020 7:59 AM CDT [facility] NASOPHARYNGEAL SWAB / Unknown 09/30/2020 8:03 AM CDT us Dipak Rios MD MICROBIOLOGY - GENERAL ORDERAB LES Final Result Performing Organization Address City/State/[facility] Co de Phone Number [facility] [address] [place] [address], [facility] [address] [place] [address], documented in this encounter Visit Diagnoses Diagnosis Preop testing- Primary Preoperative examination, unspecified documented in this encounter Additional Health Concerns Infection Onset Date Last Indicated Resolved Time COVID-19 Rule Out 09/30/2020 09/30/2020 10/01/2020 1:31 PM CDT COVID-19 Rule Out 10/28/2020 10/28/2020 10/30/2020 5:40 PM CDT documented as of this encounter Care Teams Automotive Parts Interpreter Relationship Specialty Start Date End Date Preeti Self MD PCP - General INTERNAL MEDICINE 11/23/15 03/07/22 [place] [address] [address] [place] [address] PCP - General FAMILY PRACTICE 03/08/22 Ender Griffith MD Three [facility]. [address] [place] [address] Lehr Supervisor [facility]ality House CARDIOVASCULAR DISEASE 01/22/17 Pan Miller MD 1 [place] [address] Consulting Physician RADIATION ONCOLOGY 01/15/25 documented as of this encounter
--- OUTSIDE RECORDS SUMMARY | 2025-03-12 11:54 | XMS_ITS | Clinical Summary ---
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 Gender Identity Not on file Sexual Orientation [...] CDT Office Visit [facility] [address] [address] Gavin Galindo MD [address] [place] [address] Health Maintenance Due Date Last Done [...] to complete this topic Insurance MEDICARE C [facility] Care Teams Radiology Scheduler Relationship Specialty [place] [address] [address] [address] PCP - General Family Medicine 06/26/24 Gavin Galindo MD [address] [place], [place] [address] Consulting Physician Oncology 06/26/24
--- OUTSIDE RECORDS SUMMARY | 2025-03-12 11:54 | XMS_ITS | Encounter Summary ---
Author Organization [facility] Address [facility] [place] [address] Care Team Providers Care External Grinder Tool Name Role Phone Ender Griffith MD Unavailable [phone] Luciana Bran MD Primary Care Provider [phone] Pan Miller MD Unavailable Encounter Details Date Type Department Care Team (Late st Contact Info) Description 06/25/2024 Alektrona Message Enc [facility] Medical Group Family & Internal Medicine [address] [address] [facility] Provider specialist Social History Tobacco Use [...] 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 [address] [place] [address] 01/28/2026 10:15 AM CDT [facility] [address] [place] [address] Ender Griffith MD [facility]. [address] [address] documented as of this encounter Visit Diagnoses Not on filedocumented in this encounter Additional Health Concerns Assessment Noted Time PHQ-9 Depression Total Score: 0 04/05/20 7:30 AM CDT documented as of this encounter Care Teams External Grinder Tool Relationship Specialty [place] [address] [facility] [address] PCP - General FAMILY PRACTICE 03/08/22 Ender Griffith MD [facility]. [address] [address] [place] Surveyor Instrument Assistant CARDIOVASCULAR DISEASE 01/22/17 Pan Miller MD [address] [place] [place] [address] Consulting Physician RADIATION ONCOLOGY 01/15/25 documented as of this encounter
--- OUTSIDE RECORDS SUMMARY | 2025-03-12 11:54 | XMS_ITS | Clinical Summary ---
Author Organization [facility] Address [address] [place] [address] Care Team Providers Care Funeral Director/Embalmer Name Role Phone Ender Griffith MD Unavailable [phone] Luciana Bran MD Primary Care Provider [phone] Pan Miller MD Unavailable Allergies No known [...] (06/12/2021): Added automatically from request for surgery [id number] Age-related cataract of both eyes, unspecified age-related [...] Neuropathy 11/01/2015 Atherosclerotic heart diseas [place] coronary artery without angina pectoris Assessment & [...] Date Type Department Care Team Description 02/27/2025 MyChart Message Enc [facility] Radiation Oncology [address] [place] [address] [place] [address] Pan Miller MD Prostate cancer 02/25/2025 Scan [facility] SRVCS Scanned, Doc [facility] 02/23/2025 Scan [facility] SRVCS Scanned, Doc [facility] Image (SCAN) 02/02/2025 Telephone [facility] Radiation Oncology [address] [place] [address] [place] [address] Pan Miller MD Results 01/28/2025 2:00 PM CDT Office Visit [facility] Medical [facility] General Surgery [address], [address] [place] [address] Rashaad Rubio MD Inguinal Hernia (FU left inguinal hernia repair 01/07/25) 01/28/2025 Travel 01/22/2025 10:30 AM CDT [facility] [phone] Rin Silva PA Coronary Artery Disease 01/22/2025 Travel 01/15/2025 9:14 AM CDT - 01/15/2025 11:59 PM CDT Hospital Encounter [facility] Radiation Oncology [address] [place] [address] Pan Miller MD Consult Discharge Disposition: Home or Self Care (Routine Discharge) 01/14/2025 3:15 PM CDT Office Visit [facility] Medical [facility] General Surgery [facility] [address] [facility], [address] [place] [address] Rashaad Rubio MD Postop Followup (Left inguinal hernia repair 01/07/25- sore and bruised) 01/14/2025 Scan [facility] INFO SRVCS Scanned, Doc Med Group 01/14/2025 Travel 01/07/2025 8:30 AM CDT - 01/07/2025 10:10 AM CDT Surgery [address] [address] Rashaad Rubio MD HERNIORRHAPHY INGUINAL- open repair with mesh 01/07/2025 8:15 AM CDT Anesthesia Event [facility] [address] [place] [address] Sherri Green, Barber [place] CRNA 01/07/2025 6:57 AM CDT - 01/07/2025 11:58 AM CDT Hospital Encounter [address] [address] Rashaad Rubio MD Discharge Disposition: Home or Self Care (Routine Discharge) 01/07/2025 Travel 01/06/2025 MyChart [facility] [phone] Rin Silva PA EKG test results 01/05/2025 6:45 AM CDT - 01/05/2025 11:59 PM CDT Hospital Encounter [facility] Cardiopulmonary Services [address] [place] [address] Lory Tucker MD Discharge Disposition: Home or Self Care (Routine Discharge) 01/05/2025 6:44 AM CDT Hospital Encounter [facility] [address] [place] [address] Rashaad Rubio MD Discharge Disposition: Home or Self Care (Routine Discharge) 01/05/2025 Travel 12/30/2024 Telephone [facility] Radiation Oncology [address] [place] [address] Pan Miller MD Appointment Request 12/30/[address] [facility] Central Scheduling [facility] [place] [address] Gavin Galindo MD 12/28/2024 Telephone [facility] One Day Services [address] [place] [address] Ender Griffith MD Surgical Clearance (Requesting clearance for pts Inguinal Hernia surgery with Dr Rubio on 01/07 at [facility]. 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 file Not [...] Description 10/11/2025 11:20 AM CDT Office Visit [facility] Medical Group Family & Internal Medicine - [place] [address] [place] [address] [place] [address] [facility] [address] [place] [address] 01/28/2026 10:15 AM CDT Office Visit [facility] [address] [place] [address] Ender Griffith MD [facility] [address] [place] [address] Health Maintenance Due Date Last Done Comments [...] FIT/FOBT (1 Year) Discontinued 03/16/2021 PHQ-2 (Physician [place]) Completed 10/09/2024 Meningococcal B Vaccine Aged Out No l onger eligible based on patient's age to complete this topic Meningococcal Vaccine Aged Out No aga kimberly eligible based on patient's age to complete this topic RSV Immunizations Under 20 Months Aged Out No longer eligible b ased on patient's age to complete this topic Medical Devices Implanted Type Area Six Pack Loader Operator Device Identifier Shelf Expiration Date Model / Serial / Lot Iol Jerzy Symfony Toric [id number] - [id number] Implanted:Qty: 1 on 10/03/2020 by Dipak Rios MD at [facility] Lens Left: Eye JERZY 04/18/2023 [id number] / [id number] / Iol Jerzy Symfony Toric [id number] - [id number] Implanted:Qty: 1 on 10/31/2020 by Dipak Rios MD at [facility] Lens Right: Eye JERZY 03/07/2022 [id number] / [id number] / Plug Large Light Mesh - [id number] Implanted:Qty: 1 on 01/07/2025 by Rashaad Rubio MD at [facility] Mesh Left: Abdomen [employer] - DIV C R BARD INC [id number] 03/21/2029 [id number] / / [id number] On-Q Antimicrobial Expansion Kits With Silversoaker Antimicrobial Catheter Implanted:Qty: 1 on 01/07/2025 by Rashaad Rubio MD at [facility] Left: Abdomen [employer] [id number] 04/05/2027 [id number] / / [id number] Procedures Procedure Name Priority Date/Time Associated Diagnosis [...] AM CDT) 01/05/2025 6:56 AM CDT Narrative [facility] RAD - 01/06/2025 6:36 AM CDT [facility] Test Date: 2025-01-05 Pat Name: FAUSTINO GENTILE Department: 85 Room: Gender: Male Pocket Marker: : 1950 Requested By: LORY Alvarez Number: [id number] Reading MD: Kristopher Almazan Measurements Intervals [place] Rate: 73 P: 57 VT: 226 QRS: 67 QRSD: 89 T: 3 QT: 359 QTc: 397 Interpretive Statements SINUS RHYTHM WITH FIRST DEGREE AV BLOCK NONSPECIFIC T-WAVE ABNORMALITY Compared to ECG 08/10/2022 20:14:18 T-wave abnormality now present Procedure Note Kristopher Almazan MD - 01/06/2025 [facility] Test Date: 2025-01-05 Pat Name: FAUSTINO GENTILE Department: 85 Room: Gender: Male Pocket Marker: : 1950 Requested By: LORY TUCKER Order Number: [id number] Reading MD: Kristopher Almazan Measurements Intervals [place] Rate: 73 P: 57 VT: 226 QRS: 67 QRSD: 89 T: 3 QT: 359 QTc: 397 Interpretive Statements SINUS RHYTHM WITH FIRST DEGREE AV BLOCK NONSPECIFIC T-WAVE ABNORMALITY Compared to ECG 08/10/2022 20:14:18 T-wave abnormality now present Lory Tucker MD ECG ORDERABLES Final Result [facility] * MRSA SCREENING (01/05/2025 6:48 AM CDT) SPEC DESCRIPTION NASAL 01/05/2025 6:47 AM CDT [facility] SPECIAL REQUESTS NO SPECIAL REQUEST 01/05/2025 6:47 AM CDT [facility] CULTURE RESULT NO METHICILLIN RESISTANT STAPHYLOCOCCUS AUREUS ISOLATED 01/06/2025 11:34 AM CDT [facility] SPECIMEN FROM INTERNAL NOSE / Unknown 01/05/2025 6:48 AM CDT 01/05/2025 6:49 AM CDT us Rashaad Rubio MD MICROBIOLOGY - GENERAL ORDERABLE S Final Result [facility] [address] [place] [address], [place] [phone] [facility] [address] [place] [address], [place] [phone] * COLONOSCOPY GENERIC (06/20/2021) 06/20/2021 Narrative 06/20/2021 Ordered by an unspecified provider. us Documents Scanned SCANNING Final Result * FECAL BLOOD OCCULT (03/16/2021) FECAL OCCULT BLOOD NEGATIVE [facility] ONBASE 03/16/2021 us Documents Scanned SCANNING Final Result [facility] ONBASE from Last 3 Months or Most Recently Relevant to Health Maintenance Insurance Advance Directives Documents on File Type Date Recorded Patient Watershed Manager Expl anation Advance Directives and Living Will 06/20/2021 12:00 AM ADVANCED DIRECTIVES Care Teams Funeral Director/Embalmer Relationship Specialty [place] [address] [facility] [place] [address] PCP - General FAMILY PRACTICE 03/08/22 Ender Griffith MD Three [facility]. [facility] [address] [place] [address] [place] Asian Studies Professor CARDIOVASCULAR DISEASE 01/22/17 Pan Miller MD 1 [place] [address] Consulting Physician RADIATION ONCOLOGY 01/15/25
--- OUTSIDE RECORDS SUMMARY | 2025-03-12 11:54 | XMS_ITS | Encounter Summary ---
Author Organization [facility] Address [facility] [place] [address] Care Team Providers Care Plumber And Tinner Name Role Phone Preeti Self MD Primary Care Provider [phone] Ender Griffith MD Unavailable [phone] Luciana Bran MD Primary Care Provider [phone] Pan Miller MD Unavailable Encounter Details Date Type Department Care Team (Late st Contact Info) Description 12/18/2020 MyCGivesparkt Message Enc [facility] Medical Group Family & Internal Medicine [facility] [address] [place] [address] Nikki Rockwell APNP [address] [address] RE: Other Social History Tobacco [...] 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 [address] [place] [phone] 01/28/2026 10:15 AM CDT Office Visit [facility] [address] [place] [address] Ender Griffith MD [address] [address] documented as of this encounter Visit Diagnoses Not on filedocumented in this encounter Care Teams Plumber And Tinner Relationship Specialty Start Date End Date Preeti Self MD PCP - General INTERNAL MEDICINE 11/23/15 03/07/22 [place] [address] [facility]. [address] [place], [place] [address] PCP - General FAMILY PRACTICE 03/08/22 Ender [facility] [address] [place] [address] [place] Chamber Walker CARDIOVASCULAR DISEASE 01/22/17 Pan Miller MD 1 [place] [address] Consulting Physician RADIATION ONCOLOGY 01/15/25 documented as of this encounter
--- OUTSIDE RECORDS SUMMARY | 2025-03-12 11:54 | XMS_ITS | Encounter Summary ---
Author Organization [facility] Address [facility] [place] [address] Care Team Providers Care Lumber Sales Supervisor Name Role Phone Ender Griffith MD Unavailable [phone] Luciana Bran MD Primary Care Provider [phone] Pan Miller MD Unavailable Encounter Details Date Type Department Care Team (Late st Contact Info) Description 10/13/[address] [facility] Medical Group Family & Internal Medicine [facility] [address] [place] [address] Luciana Bran MD [address] [place] 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 Medical Group Family & Internal Medicine - [place] [address] [place] [address] [place] [address] [facility]. [address] [place] [address] 01/28/2026 10:15 AM CDT [facility] [address] [place] [address] Ender Griffith MD Three [facility]. [address] [id number] documented as of this encounter Visit Diagnoses Not on filedocumented in this encounter Additional Health Concerns Assessment Noted Time PHQ-9 Depression Total Score: 0 04/05/20 7:30 AM CDT documented as of this encounter Care Teams Lumber Sales Supervisor Relationship Specialty [place] [address] [facility]. [address] [place] [address] PCP - General FAMILY PRACTICE 03/08/22 Ender Griffith MD Three [facility]. [address] [place], [place] [phone] Myah Outside Residential Sales Professional CARDIOVASCULAR DISEASE 01/22/17 Pan Miller MD 1 [place], [place] [address] Consulting Physician RADIATION ONCOLOGY 01/15/25 documented as of this encounter
--- OUTSIDE RECORDS SUMMARY | 2025-03-12 11:54 | XMS_ITS | Encounter Summary ---
Author Organization [facility] Address [facility] [place] [address] Care Team Providers Care Yard Coupler Name Role Phone Preeti Self MD Primary Care Provider [phone] Ender Griffith MD Unavailable [phone] Luciana Bran MD Primary Care Provider [phone] Pan Miller MD Unavailable Encounter Details Date Type Department Care Team (Late st Contact Info) Description 07/02/2020 MyChart Message Enc [facility] Medical Group Family & Internal Medicine [facility] [address] [place] [address] Preeti Sefl MD [address] [place] [address] RE: Referral Request Social History Tobacco [...] 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 [address] [place] [address] 01/28/2026 10:15 AM CDT Office Visit [facility] [address] [place] [address] Ender Griffith MD [facility]. [address] [address] documented as of this encounter Visit Diagnoses Not on filedocumented in this encounter Additional Health Concerns Infection Onset Date Last Indicated Resolved Time COVID-19 Rule Out 09/30/2020 09/30/2020 10/01/2020 1:31 PM CDT COVID-19 Rule Out 10/28/2020 10/28/2020 10/30/2020 5:40 PM CDT documented as of this encounter Care Teams Yard Coupler Relationship Specialty Start Date End Date Preeti Self MD PCP - General INTERNAL MEDICINE 11/23/15 03/07/22 [place] [address] [facility] [address] [place]. [address] [place] [address] PCP - General FAMILY PRACTICE 03/08/22 Ender Griffith MD Three [facility]. [address] [place] [address] [place] Budget Record Clerk CARDIOVASCULAR DISEASE 01/22/17 Pan Miller MD 1 [place] [address] Consulting Physician RADIATION ONCOLOGY 01/15/25 documented as of this encounter
--- OUTSIDE RECORDS SUMMARY | 2025-03-12 11:54 | XMS_ITS | Encounter Summary ---
Author Organization [facility] - [facility] Address [facility] [place] [address] Care Team Providers Care Environmental Inspector Name Role Phone Preeti Self MD Primary Care Provider [phone] Ender Griffith MD Unavailable [phone] Luciana Bran MD Primary Care Provider [phone] Pan Miller MD Unavailable Encounter Details Date Type Department Care Team (Late st Contact Info) Description 09/23/2020 MyChart Message Enc [facility] Wound Clinic [facility] [address] [place] [address] [place] [address] [place] [address] Question Social History Tobacco Use [...] 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 [address] [place] [address] 01/28/2026 10:15 AM CDT Office Visit [facility] [address] [place] [address] Ender Griffith MD [facility]. [address] [address] documented as of this encounter Visit Diagnoses Not on filedocumented in this encounter Additional Health Concerns Infection Onset Date Last Indicated Resolved Time COVID-19 Rule Out 09/30/2020 09/30/2020 10/01/2020 1:31 PM CDT COVID-19 Rule Out 10/28/2020 10/28/2020 10/30/2020 5:40 PM CDT documented as of this encounter Care Teams Environmental Inspector Relationship Specialty Start Date End Date Preeti Self MD PCP - General INTERNAL MEDICINE 11/23/15 03/07/22 [place] [address] [facility]. [address] [place] [phone] PCP - General FAMILY PRACTICE 03/08/22 Ender Griffith MD Three [facility]. [facility] [address] [place] [address] [place] Electrical Maintenance Worker CARDIOVASCULAR DISEASE 01/22/17 Pan Miller MD 1 [place], [place] [id number] Consulting Physician RADIATION ONCOLOGY 01/15/25 documented as of this encounter
--- OUTSIDE RECORDS SUMMARY | 2025-03-12 11:54 | XMS_ITS | Clinical Summary ---
Author [facility] Address [address] [place] [address] Care Team Providers Care Sports Nutritionist Name Role Phone Preeti Self MD Primary Care Provider [phone] Allergies No known active allergies Medications rosuvastatin [...] mg tabletIndicatio ns:Lumbar stenosis with neurogenic claudication,Ac [place] post-operative pain Take 1-2 Tablets by mouth [...] on file Legal Sex Male 4:35 AM MARKETING COPYWRITER Gender Identity Not on file Sexual Orientation Not on file Last Filed Vital Signs Vital Sign Reading Time Taken Comments Blood Pressure 141/80 07/24/2022 2:02 PM MARKETING COPYWRITER Pulse 87 07/24/2022 2:02 PM MARKETING COPYWRITER Temperature 24.4 C (76 F) 06/28/2021 10:51 AM MARKETING COPYWRITER Respiratory Rate 16 02/09/2021 3:00 PM CDT Oxygen Saturation 98% 02/09/2021 3:00 PM CDT Inhaled Oxygen Concentration - - Weight 84.4 kg (186 lb) 07/24/2022 2:02 PM MARKETING COPYWRITER Height 165.1 cm (5' 5) 07/24/2022 2:02 PM MARKETING COPYWRITER Body Mass Index 30.95 07/24/2022 2:02 PM MARKETING COPYWRITER Plan of Treatment Health Maintenance Due Date [...] series) 12/01/2027 Medical Devices Implanted Type Area [place] Worker Device Identifier Shelf Expiration Date Model / Serial / Lot Hemostatic Surgiflo 8ml W/Thrombin 2994 - [id number] Implanted:Qty: 1 on 02/09/2021 by Yosef Ash MD at [facility] Hemostatic N/A: Spine Lumbar [employer] 05/23/2022 [id number] / / [id number] Cervical Hardware Insurance [facility] DUAL COMPLETE HMO [facility] [id number] Care Teams Sports Nutritionist Relationship Specialty [place] [address] [address] PCP - General Internal Medicine 03/30/17
--- OUTSIDE RECORDS SUMMARY | 2025-03-12 11:54 | XMS_ITS | Encounter Summary ---
Author Organization [facility] Address [facility] [place] [address] Care Team Providers Care Roughener Name Role Phone Edd De Dios MD Unavailable Unavailable Preeti Self MD Primary Care Provider [phone] Ender Griffith MD Unavailable [phone] Luciana Bran MD Primary Care Provider [phone] Pan Miller MD Unavailable Encounter Details Date Type Department Care Team (Late st Contact Info) Description 04/11/2016 Abstract [facility] AT [address] [address] Sohail Gramajo MA Social History [...] Description 10/11/2025 11:20 AM CDT Office Visit [facility] Medical Group Family & Internal Medicine [place] [address] [place] [address] [place] [address] [address] [place] [address] 01/28/2026 10:15 AM CDT [facility] [address] [place] [address] Ender Griffith MD Three [facility] [facility]. [address] [facility] [place] [address] documented as of this encounter Procedures Procedure [...] documented as of this encounter Care Teams Roughener Relationship Specialty Start Date End Date Preeti Self MD PCP - General INTERNAL MEDICINE 11/23/15 03/07/22 [place] [address] [phone] PCP - General FAMILY PRACTICE 03/08/22 Edd De Dios MD [employer] Analytics Specialist CARDIOVASCULAR DISEASE 11/23/15 01/21/17 Ender Griffith MD Three [facility] [place] [facility]. [address] [place] [address] [place] Analytics Specialist CARDIOVASCULAR DISEASE 01/22/17 Pan Miller MD 1 [place], [place] [id number] Consulting Physician RADIATION ONCOLOGY 01/15/25 documented as of this encounter
--- OUTSIDE RECORDS SUMMARY | 2025-03-12 11:54 | XMS_ITS | Encounter Summary ---
Author Organization [facility] Address [facility] [place] [address] Care Team Providers Care Air Compressor Mechanic Name Role Phone Ender Griffith MD Unavailable [phone] Luciana Bran MD Primary Care Provider [phone] Pan Miller MD Unavailable Encounter Details Date Type Department Care Team (Late st Contact Info) Description 03/08/2022 MyChart Message Enc [facility] Medical Group Family & Internal Medicine [facility] [address] [place] [address] Luciana Bran MD [address] [place] [address]. 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 [address] [place] [phone] 01/28/2026 10:15 AM CDT Office [facility] [address] [place] [address] Ender Griffith MD [address] [address] documented as of this encounter Visit Diagnoses Not on filedocumented in this encounter Additional Health Concerns Assessment Noted Time PHQ-9 Depression Total Score: 4 08/23/19 9:55 AM COMMUNICATION SKILLS INSTRUCTOR documented as of this encounter Care Teams Air Compressor Mechanic Relationship Specialty Start [place] [address] [facility]. [address] [place] [phone] PCP - General FAMILY PRACTICE 03/08/22 Ender Griffith MD [facility]. [facility] [address] [place], [place] [address] [place] Director Global Sales CARDIOVASCULAR DISEASE 01/22/17 Pan Miller MD 1 [place] [address] Consulting Physician RADIATION ONCOLOGY 01/15/25 documented as of this encounter
--- OUTSIDE RECORDS SUMMARY | 2025-03-12 11:54 | XMS_ITS | Encounter Summary ---
Author Organization [facility] - [facility] Address [facility] [place] [address] Care Team Providers Care Parachute Cushion Installer Name Role Phone Preeti Self MD Primary Care Provider [phone] Ender Griffith MD Unavailable [phone] Luciana Bran MD Primary Care Provider [phone] Pan Miller MD Unavailable Encounter Details Date Type Department Care Team (Late st Contact Info) Description 08/05/2019 MyChart Message Enc [facility] Medical Group Urology Specialty Clinic [facility] [address] [place] [address] Josse Pham MD [address] [place] [address] [place] [address] Medication Questions Social History Tobacco Use Types [...] 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 [address] [place] [address] 01/28/2026 10:15 AM CDT Office [facility] [address] [place] [address] Ender Griffith MD Three [facility]. [address] [address] documented as of this encounter Visit Diagnoses Not on filedocumented in this encounter Additional Health Concerns Infection Onset Date Last Indicated Resolved Time COVID-19 Rule Out 09/30/2020 09/30/2020 10/01/2020 1:31 PM CDT COVID-19 Rule Out 10/28/2020 10/28/2020 10/30/2020 5:40 PM CDT documented as of this encounter Care Teams Parachute Cushion Installer Relationship Specialty Start Date End Date Preeti Self MD PCP - General INTERNAL MEDICINE 11/23/15 03/07/22 [place] [address] [facility]. [address] [place] [address] PCP - General FAMILY PRACTICE 03/08/22 Ender Griffith MD Three [facility]. [facility] [address] [place] [address] [place] Transportation Worker CARDIOVASCULAR DISEASE 01/22/17 Pan Miller MD 1 [place] [address] Consulting Physician RADIATION ONCOLOGY 01/15/25 documented as of this encounter
--- OUTSIDE RECORDS SUMMARY | 2025-03-12 11:54 | XMS_ITS | Encounter Summary ---
Author Organization [facility] - 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 No / Unsure 05/15/2022 8:42 AM COMP FIELD CASE MANAGER documented as of this encounter Plan of Treatment Upcoming Encounters Date Type Department Care Team (Late st Contact Info) Description 10/11/2025 11:20 AM CDT Office Visit [facility] Medical Group Family & Internal Medicine - [place] [address] [place] [phone] [place] [address] [facility]. [address] [place] [address] 01/28/2026 10:15 AM CDT Office [facility] [address] [place] [address] Ender Griffith MD Three [facility]. [address] [address] documented as of this encounter Visit Diagnoses Not on filedocumented in this encounter Additional Health Concerns Assessment Noted Time PHQ-9 Depression Total Score: 0 04/05/20 7:30 AM CDT documented as of this encounter Care Teams Plastics Plater Relationship Specialty Start [place] [address] [facility]. [address] [place] [address] PCP - General FAMILY PRACTICE 03/08/22 Ender Griffith MD Three [facility]. [address] [address] [place] Refund Specialist CARDIOVASCULAR DISEASE 01/22/17 Pan Miller MD 1 [place], [place] [id number] Consulting Physician RADIATION ONCOLOGY 01/15/25 documented as of this encounter
--- OUTSIDE RECORDS SUMMARY | 2025-03-12 11:54 | XMS_ITS | Encounter Summary ---
Author Organization [facility] Address [address] [place] [address] Care Team Providers Care Portrait Painter Name Role Phone Preeti Self MD Primary Care Provider [phone] Ender Griffith MD Unavailable [phone] Luciana Bran MD Primary Care Provider [phone] Pan Miller MD Unavailable Encounter Details Date Type Department Care Team (Late st Contact Info) Description 10/21/2020 Prep for Procedure [facility] [address] [place] [address] Dipak Rios MD [address] [facility] [address] [place] [address] Social History Tobacco Use Types Packs/Day [...] 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 [address] 01/28/2026 10:15 AM CDT Office [facility] [address] [place] [address] Ender Griffith MD [address] [address] documented as of this encounter Results * PRE-SURGICAL/PRE-PROCEDURE CORONAVIRUS (COVID 19) (10/28/2020 7:41 AM CDT) CORONAVIRUS SARS COV 2 PCR (RESP) NOT DETECTED NOT DETECTED 10/30/2020 5:40 PM CDT [facility] Comment: A Not Detected (negative) [...] providers and patients using the following websites: https://www.[employer]/home/Covid-19/HCP/NAAT/fact-sheet2 https://www.[employer]/home/Covid-19/Patients/NAAT/ fact-sheet2 This test has been authorized by the FDA under an Emergency Use Authorization (EUA) for use by authorized laboratories. Due to the current public health emergency, [facility] is receiving a high volume of samples [...] about COVID-19 can be found at the [facility] website: www.[employer].SureSpeak/Covid19. Test performed at [facility] [place] [address] [place] [address] Director: TIANA PANCHAL DO,MPH FIRST TEST NO 10/28/2020 7:37 AM CDT [facility] EMPLOYED IN HEALTHCARE NO 10/28/2020 7:37 AM CDT [facility] SYMPTOMATIC DEFINED BY CDC NO 10/28/2020 7:37 AM CDT [facility] DATE OF SYMPTOM ONSET UNKNOWN 10/28/2020 8:07 AM CDT [facility] HOSPITALIZATION STATUS NO 10/28/2020 7:37 AM CDT [facility] PATIENT IN ICU NO 10/28/2020 7:37 AM CDT [facility] RESIDENT OF CONGREGATE CARE NO 10/28/2020 7:37 AM CDT [facility] NO 10/28/2020 8:07 AM CDT [facility] PATIENT'S RACE WHITE OR 10/28/2020 7:37 AM CDT [facility] ETHNICITY NONHISPANIC 10/28/2020 7:37 AM CDT [facility] SOURCE (QST) NASOPHARYNGEAL SWAB 10/28/2020 7:37 AM CDT [facility] NASOPHARYNGEAL SWAB / Unknown 10/28/2020 7:41 AM CDT us Dipak Rios MD MICROBIOLOGY - GENERAL ORDERAB LES Final Result Performing Organization Address City/State/[facility] Co de Phone Number [facility] [address] [facility] [place] [address], [facility] [address] documented in this encounter Visit Diagnoses Diagnosis Preop testing- Primary Preoperative examination, unspecified documented in this encounter Additional Health Concerns Infection Onset Date Last Indicated Resolved Time COVID-19 Rule Out 10/28/2020 10/28/2020 10/30/2020 5:40 PM CDT documented as of this encounter Care Teams Portrait Painter Relationship Specialty Start Date End Date Preeti Self MD PCP - General INTERNAL MEDICINE 11/23/15 03/07/22 [place] [address] [address] [place] [address] PCP - General FAMILY PRACTICE 03/08/22 Ender Griffith MD Three [facility]. [address] [place] [address] [place] Motor Driver CARDIOVASCULAR DISEASE 01/22/17 Pan Miller MD 1 [place] [address] Consulting Physician RADIATION ONCOLOGY 01/15/25 documented as of this encounter
--- OUTSIDE RECORDS SUMMARY | 2025-03-12 11:54 | XMS_ITS | Encounter Summary ---
Author Organization [facility] Address [facility] [place] [address] Care Team Providers Care Drawing Hand Name Role Phone Preeti Self MD Primary Care Provider [phone] Ender Griffith MD Unavailable [phone] Luciana Bran MD Primary Care Provider [phone] Pan Miller MD Unavailable Encounter Details Date Type Department Care Team (Late st Contact Info) Description 11/15/2020 MyChart Message Enc [facility] Medical Group Wound Clinic [facility] [address] [place] [address] [place] [address] [place] [address] RE: Other Social History Tobacco [...] 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 Not [...] Description 10/11/2025 11:20 AM CDT Office Visit [facility] Medical Group Family & Internal Medicine - [place] [address] [place] [address] [place] [address] [facility] [address] [place] [address] 01/28/2026 10:15 AM CDT Office Visit [facility] [address] [place] [address] Ender Griffith MD [address] [address] documented as of this encounter Visit Diagnoses Not on filedocumented in this encounter Care Teams Drawing Hand Relationship Specialty Start Date End Date Preeti Self MD PCP - General INTERNAL MEDICINE 11/23/15 03/07/22 [place] [address] [facility]. [address] [place] [phone] PCP - General FAMILY PRACTICE 03/08/22 Ender Griffith MD [facility] [address] [place] [address] [place] Pricing Lead CARDIOVASCULAR DISEASE 01/22/17 Pan Miller MD 1 [place] [address] Consulting Physician RADIATION ONCOLOGY 01/15/25 documented as of this encounter
--- OUTSIDE RECORDS SUMMARY | 2025-03-12 11:54 | XMS_ITS | Encounter Summary ---
Author Organization [facility] Address [facility] [place] [address] Care Team Providers Care Lacquer Sprayer Name Role Phone Preeti Self MD Primary Care Provider [phone] Ender Griffith MD Unavailable [phone] Luciana Bran MD Primary Care Provider [phone] Pan Miller MD Unavailable Encounter Details Date Type Department Care Team (Late st Contact Info) Description 08/23/2021 My[employer]ower Analog Microelectronicst Message Enc [facility] Medical Group Family & Internal Medicine [address] [address] Maribel Lin, PARALEGAL INSTRUCTOR New script Social History Tobacco Use Types [...] 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 No / Unsure 08/22/2021 9:46 AM ENTERPRISE ARCHITECT MANAGER documented as of this encounter Plan of Treatment Upcoming Encounters Date Type Department Care Team (Late st Contact Info) Description 10/11/2025 11:20 AM CDT Office Visit [facility] Medical Group Family & Internal Medicine - [place] [address] [place] [address] [place] [address] [facility] [address] [place] [phone] 01/28/2026 10:15 AM CDT Office Visit [facility] [address] [place] [address] Ender Griffith MD [facility]. [address] [address] documented as of this encounter Visit Diagnoses Not on filedocumented in this encounter Additional Health Concerns Assessment Noted Time PHQ-9 Depression Total Score: 4 08/23/19 22 9:55 AM ENTERPRISE ARCHITECT MANAGER documented as of this encounter Care Teams Lacquer Sprayer Relationship Specialty Start Date End Date Preeti Self MD PCP - General INTERNAL MEDICINE 11/23/15 03/07/22 [place] [address] [facility]. [address] [place] [phone] PCP - General FAMILY PRACTICE 03/08/22 Ender Griffith MD [facility]. [address] [place] [address] [place] Envelope Maker CARDIOVASCULAR DISEASE 01/22/17 Pan Miller MD 1 [place] [address] Consulting Physician RADIATION ONCOLOGY 01/15/25 documented as of this encounter
--- OUTSIDE RECORDS SUMMARY | 2025-03-12 11:54 | XMS_ITS | Encounter Summary ---
Author Organization [facility] Address [facility] [place] [address] Care Team Providers Care Cloud Architect Name Role Phone Ender Griffiht MD Unavailable [phone] Luciana Bran MD Primary Care Provider [phone] Pan Miller MD Unavailable Encounter Details Date Type Department Care Team (Late st Contact Info) Description 03/28/2022 MyChart Message Enc [facility] Multispecialty Care - [facility] [address] [facility] [address] [place] [address] Josse Pham MD [address] [place] [address] [place] [address] PSA Social History Tobacco Use Types Packs/Day [...] 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 [address] [place] [address] 01/28/2026 10:15 AM CDT Office [facility] [address] [place] [address] Ender Griffith MD [facility]. [address] [address] documented as of this encounter Visit Diagnoses Not on filedocumented in this encounter Additional Health Concerns Assessment Noted Time PHQ-9 Depression Total Score: 4 08/23/19 22 9:55 AM TEMPORARY STAFF ACCOUNTANT documented as of this encounter Care Teams Cloud Architect Relationship Specialty Start [place] [address] [address] [place] [address] PCP - General FAMILY PRACTICE 03/08/22 Ender Griffith MD Three [facility]. [address] [place] [address] [place]ges Supervisor CARDIOVASCULAR DISEASE 01/22/17 Pan Miller MD 1 [place] [address] Consulting Physician RADIATION ONCOLOGY 01/15/25 documented as of this encounter
--- OUTSIDE RECORDS SUMMARY | 2025-03-12 11:54 | XMS_ITS | Encounter Summary ---
Author Organization [facility] Address On license of [facility] [place] [address] Care Team Providers Care Tie Up Worker Name Role Phone Ender Griffith MD Unavailable [phone] Luciana Bran MD Primary Care Provider [phone] Pan Miller MD Unavailable Encounter Details Date Type Department Care Team (Latest Contact Info) Description 01/06/2025 [email or web address] Message [facility] [address] [place] [phone] Rin Silva PA 3 [facility], [address] [place] [address] EKG test results Social History Tobacco Use [...] 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 [address] [place] [phone] 01/28/2026 10:15 AM CDT Office Visit [place] [facility] [address] [place] [phone] Ender Griffith MD [address] [address] documented as of this encounter Visit Diagnoses Not on filedocumented in this encounter Additional Health Concerns Assessment Noted Time PHQ-9 Depression Total Score: 0 04/05/20 22 7:30 AM CDT documented as of this encounter Care Teams Tie Up Worker Relationship Specialty [place] [address] [facility]. [address] [place] [phone] PCP - General FAMILY PRACTICE 03/08/22 Ender Griffith MD [facility]. [address] [place], [place] [address] [place] Product Development Engineer CARDIOVASCULAR DISEASE 01/22/17 Pan Miller MD 1 [place] [address] Consulting Physician RADIATION ONCOLOGY 01/15/25 documented as of this encounter
--- OUTSIDE RECORDS SUMMARY | 2025-03-12 11:54 | XMS_ITS | Clinical Summary ---
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
--- OUTSIDE RECORDS SUMMARY | 2025-03-12 11:54 | XMS_ITS | Encounter Summary ---
Author Organization [facility] Address [facility] [place] [address] Care Team Providers Care Software Team Leader Name Role Phone Ender Griffith MD Unavailable [phone] Luciana Bran MD Primary Care Provider [phone] Pan Miller MD Unavailable Encounter Details Date Type Department Care Team (Late st Contact Info) Description 02/27/2025 MyChart Message Enc [facility] Radiation Oncology [address] [place] [address] [place] [address] Pan Miller MD [address] [place] [address] Prostate cancer Social History Tobacco Use [...] 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 [address] 01/28/2026 10:15 AM CDT [facility] [place] [facility] [address] [place] [phone] Ender Griffith MD [address] [phone] documented as of this encounter Visit Diagnoses Not on filedocumented in this encounter Additional Health Concerns Assessment Noted Time PHQ-9 Depression Total Score: 0 04/05/20 7:30 AM CDT documented as of this encounter Care Teams Software Team Leader Relationship Specialty [place] [address] [facility]. [address] [address] PCP - General FAMILY PRACTICE 03/08/22 Ender Griffith MD [facility]. [facility] [address] [place], [place] [phone] Myah Burring Machine Operator CARDIOVASCULAR DISEASE 01/22/17 Pan Miller MD [address] [place], [place] [id number] Consulting Physician RADIATION ONCOLOGY 01/15/25 documented as of this encounter
--- OUTSIDE RECORDS SUMMARY | 2025-03-12 11:54 | XMS_ITS | Encounter Summary ---
Author Organization [facility] Address [facility] [place] [address] Care Team Providers Care Senior Air Director Name Role Phone Preeti Self MD Primary Care Provider [phone] Ender Griffith MD Unavailable [phone] Luciana Bran MD Primary Care Provider [phone] Pan Miller MD Unavailable Encounter Details Date Type Department Care Team (Late st Contact Info) Description 09/24/2017 Abstract [facility] at [address] [address] Sohail Gramajo MA Social History [...] Description 10/11/2025 11:20 AM CDT Office Visit [facility] Medical Group Family & Internal Medicine [address] [address] [place] [address] [address] [place] [address] 01/28/2026 10:15 AM CDT [facility] [address] [place] [address] Ender Griffith MD Three [facility]. [address] [place] [address] documented as of this encounter Procedures Procedure [...] as of this encounter Care Teams Senior Air Director Relationship Specialty Start Date End Date Preeti Self MD PCP - General INTERNAL MEDICINE 11/23/15 03/07/22 [place] [address] [address] [place] [address] PCP - General FAMILY PRACTICE 03/08/22 Ender Griffith MD Three [facility]. [address] [place] [address] [place] Chief [facility] CARDIOVASCULAR DISEASE 01/22/17 Pan Miller MD 1 [place] [address] Consulting Physician RADIATION ONCOLOGY 01/15/25 documented as of this encounter
--- OUTSIDE RECORDS SUMMARY | 2025-03-12 11:54 | XMS_ITS | Encounter Summary ---
Author Organization [facility] Address [facility] [place] [address] Care Team Providers Care Computer Aide Name Role Phone Ender Griffith MD Unavailable [phone] Luciana Bran MD Primary Care Provider Pan Miller MD Unavailable Encounter Details Date Type Department Care Team (Late st Contact Info) Description 07/27/2022 MyCCivicont Message Enc [facility] Medical Group Family & Internal Medicine [facility] [address] [place] [address] [place] [id number] [place] 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 [employer] * JORDI Lau - 07/27/2022 1:[address] Briggs. Thank you [employer] * Shirlene Chong RN - 07/27/2022 11:35 AM CST Please advise [employer] documented in this encounter Plan of Treatment Upcoming Encounters Date Type Department Care Team (Late st Contact Info) Description 10/11/2025 11:20 AM CDT Office Visit [facility] Medical Group Family & Internal Medicine - [place] [address] [place] [phone] [place] [address] [facility]. [address] [address] 01/28/2026 10:15 AM CDT Office Visit [place] [address] [place] [phone] Ender Griffith MD [address] [address] documented as of this encounter Visit Diagnoses Not on filedocumented in this encounter Additional Health Concerns Assessment Noted Time PHQ-9 Depression Total Score: 0 04/05/20 22 7:30 AM CDT documented as of this encounter Care Teams Computer Aide Relationship Specialty [place] [address] [address] [place] [address] PCP - General FAMILY PRACTICE 03/08/22 Ender Griffith MD Three [facility]. [address] [place] [address] [employer] Warp Bleaching Vat Tender CARDIOVASCULAR DISEASE 01/22/17 Pan Miller MD 1 [place] [address] Consulting Physician RADIATION ONCOLOGY 01/15/25 documented as of this encounter
--- OUTSIDE RECORDS SUMMARY | 2025-03-12 11:54 | XMS_ITS | Encounter Summary ---
Author Organization [facility] Address [facility] [place] [address] Care Team Providers Care Siebel Architect Name Role Phone Preeti Self MD Primary Care Provider [phone] Ender Griffith MD Unavailable [phone] Luciana Bran MD Primary Care Provider [phone] Pan Miller MD Unavailable Encounter Details Date Type Department Care Team (Late st Contact Info) Description 12/08/2018 GUTTER MOUTH CUTTER ONLY [facility] Medical Group Priority Care - Donnie [address]gett [address] [place] [address] Scanned, Documents Social History Tobacco [...] 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 12/17/2018 01:01 P KELSEA/CRISTINA JOB NO: [id number] DOC NO: [id number] 12/08/2018 12/09/2018 12:24 P CC: documented in this encounter Plan of Treatment Upcoming Encounters Date Type Department Care Team (Late st Contact Info) Description 10/11/2025 11:20 AM CDT Office Visit [facility] Medical Group Family & Internal Medicine [address] [address] [place] [address] [address] [place] [address] 01/28/2026 10:15 AM CDT Office Visit [place] [facility] [address] [place] [address] Ender Griffith MD Three [facility]. [address] [place] [address] documented as of this encounter Visit Diagnoses Not on filedocumented in this encounter Additional Health Concerns Infection Onset Date Last Indicated Resolved Time COVID-19 Rule Out 09/30/2020 09/30/2020 10/01/2020 1:31 PM CDT COVID-19 Rule Out 10/28/2020 10/28/2020 10/30/2020 5:40 PM CDT documented as of this encounter Care Teams Siebel Architect Relationship Specialty Start Date End Date Preeti Self MD PCP - General INTERNAL MEDICINE 11/23/15 03/07/22 [place] [address] [address] [place] [address] PCP - General FAMILY PRACTICE 03/08/22 Ender Griffith MD Three [facility]. [address] [place] [address] [place] Resolution Specialist CARDIOVASCULAR DISEASE 01/22/17 Pan Miller MD 1 [place] [address] Consulting Physician RADIATION ONCOLOGY 01/15/25 documented as of this encounter
== END 2025-03-12 11:51 | disposition home or self-care (01) ==
PROVIDERS: PCP Family Medicine; Referring Provider Urology; Visit Provider Urology
DX: C61 Malignant neoplasm of prostate (principal)
CPT/HCPCS: 51600; 74430; Q9967